=== PATIENT | female | born 1955 | race Caucasian/White ===

== ENCOUNTER 2018-10-11 21:04 | Inpatient (IN) | payer MEDICARE, OTHER ==
[~2018-10-11] VITALS: Ht 157.5 cm; Wt 58.5 kg
[2018-10-11] MEDS ORDERED: DIATRIZOATE MEGL/DIATRIZOA SOD 30 ML BTL PO ONE (21:20)
[2018-10-11 21:37] LABS: BASOPHILS % 0.2 % (0.0-1.0); EOSINOPHILS % 0.6 % (0.0-6.0); HEMATOCRIT 38.1 % (34.2-44.1); HEMOGLOBIN 12.4 g/dL (12.0-16.0); LYMPHOCYTES # (AUTO) 1.4 (1.0-3.2); LYMPHOCYTES % 22.3 % (18.0-39.1); MEAN CORPUSCULAR HEMOGLOBIN 32.5 pg (28-32); MEAN CORPUSCULAR HGB CONC 32.5 g/dL (31-35); MEAN CORPUSCULAR VOLUME 99.7 fL (81-99); MONOCYTES # (AUTO) 0.4 (0.2-0.8); MONOCYTES % 6.5 % (4.4-11.3); NEUTROPHILS # (AUTO) 4.4 (2.1-6.9); NEUTROPHILS % 69.8 % (38.7-80.0); PLATELET COUNT 88 x10e3/uL (140-360); RED BLOOD COUNT 3.82 x10e6/uL (3.6-5.1); RED CELL DISTRIBUTION WIDTH 18.6 % (11.7-14.4)
[2018-10-11 21:57] LABS: ALBUMIN/GLOBULIN RATIO 0.4 (0.8-2.0); ANION GAP 14.6 mmol/L (8-16); CALCIUM 8.7 mg/dL (8.4-10.2); CREATININE, SERUM 2.91 mg/dL (0.57-1.11); POTASSIUM 4.6 mmol/L (3.5-5.1)
[2018-10-11 21:58] LABS: B-TYPE NATRIURETIC PEPTIDE2 124.1 pg/mL (0-100)
[2018-10-11 22:03] LABS: CREATINE KINASE MB 9.2 ng/mL (0-5.0)
--- NOTE | 2018-10-11 22:19 | Diagnostic Imaging Report ---
EXAMINATION: CHEST SINGLE (PORTABLE) COMPARISON: None INDICATION: Shortness of breath, septic ^sob ^[id number] ^2145 ^Y DISCUSSION: Frontal view of the chest obtained at 2141 hours. The entire right hemithorax was not included on the image. HEART AND MEDIASTINUM: The cardiomediastinal silhouette is unremarkable. LINES: None. LUNGS: Right middle lobe and right basilar airspace opacities. Left lung is clear. No interstitial edema PLEURA: No pleural effusion or pneumothorax. BONES AND SOFT TISSUES: There are degenerative changes of the shoulders, right greater than left. The soft tissues are normal. IMPRESSION: Right middle lobe and lower lobe airspace opacities suggestive of pneumonia. Signed by: Dr. Emerson Joyner MD on 10/11/2018 10:15 PM
[2018-10-11 22:31] LABS: BILIRUBIN,URINE NEGATIVE (NEGATIVE); CLARITY,URINE CLEAR (CLEAR); COLOR,URINE YELLOW (YELLOW); KETONES,URINE NEGATIVE (NEGATIVE); LEUKOCYTE ESTERASE ,URINE NEGATIVE (NEGATIVE); NITRITE,URINE NEGATIVE (NEGATIVE); PROTEIN,URINE DIPSTICK NEGATIVE (NEGATIVE); URINE UROBILINOGEN 0.2 mg/dL (0.2 - 1)
--- NOTE | 2018-10-11 22:54 | Diagnostic Imaging Report ---
CT Abdomen and Pelvis without contrast INDICATION: ^rectal prolapse, eval for intra abdominal mass ^[id number] ^3 ^Y TECHNIQUE: Thin collimation axial images obtained from the diaphragm to the level of the pubic symphysis without nonionic intravenous contrast. Dose reduction techniques used: Automated exposure control, adjustment of the mAs and/or kVp according to patient size, standardized low-dose protocol, and/or iterative reconstruction technique. RADIATION DOSE: Total DLP: 413.8 mGy*cm Estimated effective dose: (DLP x 0.015 x size factor) mSv CTDIvol has been reviewed. It is below the limits set by the Radiation Protocol Committee (RPC). COMPARISON: Chest x-ray 2141 hours. ABDOMEN FINDINGS: Lung Bases: Small bilateral pleural effusions, right greater than left and bibasilar atelectasis. Small hiatal hernia with fluid adjacent to the distal esophagus. The heart is normal in size. Liver: Cirrhosis. No mass on these unenhanced images. Gallbladder: Present and contains a small amount of sludge. No ductal dilatation. Pancreas: Normal attenuation without mass. Spleen: Normal size without mass. Adrenal Glands: Mild thickening of the right adrenal gland without mass. Left adrenal gland is poorly visualized. Kidneys: Right: Punctate calculus in the lower pole.. No cortical mass or hydronephrosis Left: No renal calculus. No cortical mass or hydronephrosis Lymph Nodes: No lymphadenopathy. Aorta: Normal in diameter. Multiple abdominal varices PELVIS FINDINGS: Peritoneum/retroperitoneum: Moderate amount of abdominopelvic ascites. Bowel: Stomach: Collapsed with prominent gastric kennedy. Infiltrative mass cannot be excluded. Small Bowel: Normal in caliber with normal wall thickness. Large Bowel: Mild to moderate burden of stool throughout. No dilatation or significant mural thickening. Appendix: Normal. March pelvic floor laxity with inferior displacement of the rectum and peritoneum along with ascitic fluid. Bladder: Normal in position and appears normal. Ureters: No ureteral dilatation. Uterus: Present and atrophic with downward displacement approximately 4.5 cm inferior to the pubococcygeal line. Lymph nodes: No enlarged pelvic or inguinal lymph nodes. No enlarged lymph nodes in the small bowel mesentery Bones: Mild to moderate degenerative changes of the spine. There is wedging of the T12 vertebral body. The spinal canal is patent. No focal osseous lesions. Soft tissues: Mild diffuse subcutaneous edema. IMPRESSION: 1. Marked pelvic floor laxity with uterine and rectal prolapse. No evidence of bowel obstruction. 2. Cirrhosis and suspicion of portal hypertension with moderate abdominopelvic ascites. 3. Diffuse gastric wall thickening. This could either represent an infiltrative gastric mass or the result of numerous varices. Recommend correlation with endoscopy. 4. Bilateral pleural effusions and bibasilar atelectasis. 5. Tiny nonobstructing right intrarenal calculus. Signed by: Dr. Emerson Joyner MD on 10/11/2018 10:51 PM
[2018-10-11 22:56] LABS: BACTERIA,URINE FEW /HPF; EPITHELIAL CELLS,URINE FEW /LPF; RENAL EPITHELIAL CELLS,URINE FEW; TRANSITIONAL EPI CELLS,URINE MODERATE; WBC,URINE (MAN) >50 /HPF (0-5)
[2018-10-12] VITALS (8 sets, daily range): BP systolic 119–140; BP diastolic 66–83
[2018-10-12] MEDS ORDERED: SODIUM CHLORIDE 0.9% 1000ML 1,000 ML IV SCH (00:17)
--- OUTSIDE RECORDS SUMMARY | 2018-10-12 00:27 | XMS REPORT ---
[facility] Address Unknown Phone Unavailable Care Team Providers Care Basket Turner Name Role Phone Qing CHIN Unavailable Unavailable Problems This patient has no known problems. Allergies, Adverse Reactions, Alerts This patient has no known allergies or adverse reactions. Medications This patient has no known medications. Results Test Description Test Time Test Comments Text Results Atomic Results Result Comments CT ABDOMEN/PELVIS WO 2018-10-11 22:42:00 [place] [address] Patient Name: ARLET ALVARENGA MR #: [id number] : 1955 Age/Sex: 63/F Req #: [id number] [facility] Physician: Ordered by: MELISSA CHIN MD Report #: [id number] Location: ER Room/Bed: Procedure: CT/CT ABDOMEN/PELVIS WO Exam Date: 10/11/18 Exam Time: 2152 REPORT STATUS: Signed CT Abdomen and Pelvis without contrast INDICATION: rectal prolapse, eval for intra abdominal mass [id number] Y TECHNIQUE: Thin collimation axial images obtained from the diaphragm to the level of the pubic symphysis without nonionic intravenous contrast. Dose reduction techniques used: Automated exposure control, adjustment of the mAs and/or kVp according to patient size, standardized low-dose protocol, and/or i terative reconstruction technique. RADIATION DOSE: Total DLP: 413.8 mGy*cm Estimated effective dose: (DLP x 0.015 x size factor) mSv CTDIvol has been reviewed. It is below the limits set by the Radiation Protocol Committee (RPC). COMPARISON: Chest x-ray 2141 hours. ABDOMEN FINDINGS: Lung Bases: Small bilateral pleural effusions, right greater than left and bibasilar atelectasis. Small hiatal hernia with fluid adjacent to the distal esophagus. The heart is normal in size. Liver: Cirrhosis. No mass on these unenhanced images. Gallbladder: Present and contains a small amount of sludge. No ductal dilatation. Pancreas: Normal attenuation without mass. Spleen: Normal size without mass. Adrenal Glands: Mild thickening of the right adrenal gland without mass. Left adrenal gland is poorly visualized. Kidneys: Right: Punctate calculus in the lower pole.. No cortical mass or hydronephrosis Left: No renal calculus. No cortical mass or hydronephrosis Lymph Nodes: No lymphadenopathy. Aorta: Normal in diameter. Multiple abdominal varices PELVIS FINDINGS: Peritoneum/retroperitoneum: Moderate amount of abdominopelvic ascites. Bowel: Stomach: Collapsed with prominent gastric kennedy. Infiltrative mass cannot be excluded. Small Bowel: Normal in caliber with normal wall thickness. Large Bowel: Mild to moderate burden of stool throughout. No dilatation or significant mural thickening. Appendix: Normal. March pelvic floor laxity with inferior displacement of the rectum and peritoneum along with ascitic fluid. Bladder: Normal in position and appears normal. Ureters: No ureteral dilatation. Uterus: Present and atrophic with downward displacement approximately 4.5 cm inferior to the pubococcygeal line. Lymph nodes: No enlarged pelvic or inguinal lymph nodes. No enlarged lymph nodes in the small bowel mesentery Bones: Mild to moderate degenerative changes of the spine. There is wedging of the T12 vertebral body. The spinal canal is patent. No focal osseous lesions. Soft tissues: Mild diffuse subcutaneous edema. IMPRESSION: 1. Marked pelvic floor laxity with uterine and rectal prolapse. No evidence of bowel obstruction. 2. Cirrhosis and suspicion of portal hypertension with moderate abdominopelvic ascites. 3. Diffuse gastric wall thickening. This could either represent an infiltrative gastric mass or the result of numerous varices. Recommend correlation with endoscopy. 4. Bilateral pleural ef fusions and bibasilar atelectasis. 5. Tiny nonobstructing right intrarenal calculus. Signed by: Dr. Apoorva Joyner MD on 10/11/2018 10:51 PM Dictated By: APOORVA JOYNER MD 50 Transcribed By: BALJINDER on 10/11/182250 COPY TO: MLEISSA CHIN MD CHEST SINGLE (PORTABLE) 2018-10-11 22:14:00 [place] [address] Patient Name: ARLET ALVARENGA MR #: [id number] : 1955 Age/Sex: 63/F Req #: [id number] Adm Physician: Ordered by: MELISSA CHIN MD Report #: [id number] Location: ER Room/Bed: Procedure: [id number] DX/CHEST SINGLE (PORTABLE) Exam Date: 10/11/18 Exam Time: 2144 REPORT STATUS: Signed EXAMINATION: CHEST SINGLE (PORTABLE) COMPARISON: None INDICATION: Shortness of breath, septic sob [id number] Y DISCUSSION: Frontal view of the chest obtained at 2141 hours. The entire right hemithorax was not included on the image. HEART AND MEDIASTINUM: The cardiomediastinal silhouette is unremarkable. LINES: None. LUNGS: Right middle lobe and right basilar airspace opacities. Left lung is clear. No interstitial edema PLEURA: No pleural effusion or pneumothorax. BONES AND SOFT TISSUES: There are degenerative changes of the shoulders, right greater than left. The soft tissues are normal. IMPRESSION: Right middle lobe and lower lobe airspace opacities suggestive of pneumonia. Signed by: Dr. Apoorva Joyner MD on 10/11/2018 10:15 PM Dictated By: APOORVA JOYNER MD 14 Transcribed By: BALJINDER on 10/11/182214 COPY TO: MELISSA CHIN MD
--- OUTSIDE RECORDS SUMMARY | 2018-10-12 00:27 | XMS REPORT | Continuity of Care Document ---
Author Author [email or web address] [facility] [email or web address] Address Unknown Phone Unavailable Care Team Providers Care Field Investigator Name Role Phone [employer] Unavailable Unavailable Problems Problem Status Onset Date Classification Date Reported Comments Source Derangement of meniscus, not elsewhere classified Active Problem 02/15/2014 Jose R Ruiz Osteoarthrosis, lower leg Active Problem 02/15/2014 Jose R Ruiz Rheumatoid arthritis Active Problem 02/15/2014 Jose R Ruiz Hepatitis C carrier Active Problem 02/15/2014 Jose R Ruiz Unspecified drug dependence Active Diagnosis 08/18/2013 Jose R Ruiz Medications Medication Details Route Status Patient Instructions Ordering Provider Order Date Source Hydrocodone-Acetaminophen 1 tablet as needed Orally Active 7.5- 325 MG Orally every 6 hrs Latoya Ruiz Plaquenil 1 tablet with food or milk Orally Active 200 MG Orally BID Latoya Ruiz Synvisc One Use as directed Generic: Hylan NA Active 8 MG/ML Latoya Ruiz Carisoprodol 1 tablet as needed Orally Active 350 MG Orally Four times a day Latoya Ruiz Allergies, Adverse Reactions, Alerts Substance Category Reaction Severity Reaction type Status Date Reported Comments Source N.K.D.A. Adverse Reaction Info Not Available Adverse Reaction Active 06/15/2013 Jose R Ruiz Immunizations No Data Provided for This Section Results No Data Provided for This Section Pathology Reports No Data Provided for This Section Diagnostic Reports No Data Provided for This Section Consultation Notes No Data Provided for This Section Discharge Summaries No Data Provided for This Section History and Physicals No Data Provided for This Section Vital Signs Vital Sign Value Date Comments Source Weight 113 06/15/2013 Jose R Ruiz Height 63 06/15/2013 Jose R Ruiz Temperature Oral (F) 98.2 F 06/15/2013 Jose R Ruiz Heart Rate 76 06/15/2013 Jose R Ruiz Diastolic (mm Hg) 94 06/15/2013 Jose R Ruiz Systolic (mm Hg) 158 06/15/2013 Jose R Ruiz Encounters Location Location Details Encounter Type Encounter Number Reason For Visit Attending Provider ADM Date DC Date Status Source Rogelio Ruiz MD f/u [id number] 06/15/2013 06/15/2013 Jose R Ruiz MD f/u [id number] 06/15/2013 06/15/2013 Jose R Ruiz MD Follow up [id number] 02/09/2014 02/09/2014 Jose R Ruiz Procedures No Data Provided for This Section Assessment and Plan No Data Provided for This Section Plan of Care No Data Provided for This Section Social History Social History Date Source Social History ElementQualifiersDate Reported Tobacco Use: . Are you a:: current smoker , How often do you smoke cigarettes?: every day, How many cigarettes a day do you smoke?: 6-10 June 15, 2013 Caffeine: yes. frequency:, 1-2, cups/day June 15, 2013 Exercise: yes. walking June 15, 2013 Alcohol: no. 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
--- OUTSIDE RECORDS SUMMARY | 2018-10-12 00:27 | XMS REPORT ---
Author Chris Heck [facility] [employer] Address Unknown Phone Unavailable Care Team Providers Care Electric Motor Analyst Name Role Phone Chris Klein Unavailable Allergies, Adverse Reactions, Alerts Substance Reaction Event Type N.K.D.A. Info Not Available Non Drug Allergy Encounters Encounter Location Date f/u Rogelio Ruiz MD June 15, 2013 Problems Problem Type Condition ICD-9 Code Onset Dates Condition Status Problem Derangement of meniscus, not elsewhere classified 717.5 Active Problem Osteoarthrosis, lower leg 715.16 Active Problem Rheumatoid arthritis 714.0 Active Assessment Osteoarthrosis, lower leg 715.16 Active Assessment Unspecified drug dependence 304.90 Active Problem Hepatitis C carrier V02.62 Active Assessment Rheumatoid arthritis 714.0 Active Medications Medication Code System Code Instructions Start Date End Date Status Dosage Hydrocodone-Acetaminophen MEDISPAN [address]-01 7.5-325 MG Orally every 6 hrs Active 1 tablet as needed Plaquenil MEDISPAN [address]-88 200 MG Orally BID Active 1 tablet with food or milk Synvisc One MEDISPAN [address]-93 8 MG/ML Active Use as directed Generic: Hylan Carisoprodol MEDISPAN [address]-53 350 MG Orally Four times a day Active 1 tablet as needed Social History Social History Element Qualifiers Date Reported Tobacco Use: . Are you a:: current smoker , How often do you smoke cigarettes?: every day, How many cigarettes a day do you smoke?: 6-June 15, 2013 Caffeine: yes. frequency:, 1-2, cups/day June 15, 2013 Exercise: yes. walking June 15, 2013 Alcohol: no. 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, 2013 Vital Signs Date/Time: June 15, 2013 Weight 113 lbs Height 63 in Temperature 98.2 F Cardiac Monitoring Heart Rate 76 /min Blood Pressure Diastolic 94 mm Hg Blood Pressure Systolic 158 mm Hg Results CBC (INCLUDES DIFF/PLT) ABSOLUTE NEUTROPHILS(-2838-0500 cells/uL) 2750 PLATELET COUNT(-140-400 Thousand/uL) 87 EOSINOPHILS(- %) 3.4 RED BLOOD CELL COUNT(-3.80-5.10 Million/uL) 4.30 MONOCYTES(- %) 9.7 HEMOGLOBIN(-11.7-15.5 g/dL) 13.1 LYMPHOCYTES(- %) 31.5 HEMATOCRIT(-35.0-45.0 %) 40.0 NEUTROPHILS(- %) 55.0 MCV(-80.0-100.0 fL) 92.9 ABSOLUTE BASOPHILS(-0-200 cells/uL) 20 MCH(-27.0-33.0 pg) 30.6 BASOPHILS(- %) 0.4 ABSOLUTE EOSINOPHILS(-15-500 cells/uL) 170 MCHC(-32.0-36.0 g/dL) 32.9 PLATELET ESTIMATION(-ADEQUATE ) DECREASED RDW(-11.0-15.0 %) 13.2 ABSOLUTE MONOCYTES(-200-950 cells/uL) 485 WHITE BLOOD CELL COUNT(-3.8-10.8 Thousand/uL) 5.0 ABSOLUTE LYMPHOCYTES(-850-3900 cells/uL) 1575 SED RATE BY MODIFIED WESTERGREN SED RATE BY MODIFIED WESTERGREN(-< OR=30 mm/h) 7 COMPREHENSIVE METABOLIC PANEL W/EGFR ALBUMIN/GLOBULIN RATIO(-1.0-2.5 (calc)) 0.9 GLOBULIN(-1.9-3.7 g/dL (calc)) 4.2 ALKALINE PHOSPHATASE(-33-130 U/L) 157 BILIRUBIN, TOTAL(-0.2-1.2 mg/dL) 0.4 CHLORIDE(-98-110 mmol/L) 106 ALT(-6-29 U/L) 24 POTASSIUM(-3.5-5.3 mmol/L) 4.5 AST(-10-35 U/L) 38 SODIUM(-135-146 mmol/L) 138 BUN/CREATININE RATIO(-6-22 (calc)) NOT APPLICABLE eGFR (-> OR=60 mL/min/1.73m2) 112 CALCIUM(-8.6-10.4 mg/dL) 8.8 CARBON DIOXIDE(-19-30 mmol/L) 24 ALBUMIN(-3.6-5.1 g/dL) 3.8 PROTEIN, TOTAL(-6.1-8.1 g/dL) 8.0 GLUCOSE(-65-99 mg/dL) 103 UREA NITROGEN (BUN)(-7-25 mg/dL) 11 CREATININE(-0.50-0.99 mg/dL) 0.64 eGFR NON-AFR. LIBYAN(-> OR=60 mL/min/1.73m2) 97 C-REACTIVE PROTEIN C-REACTIVE PROTEIN(-<0.80 mg/dL) 1.08 Summary Purpose [employer] Submission
--- OUTSIDE RECORDS SUMMARY | 2018-10-12 00:27 | XMS REPORT ---
Author Rogelio Ibarra [facility] [employer] Address Unknown Phone Unavailable Care Team Providers Care Kier Tender Name Role Phone Rogelio Ruiz Unavailable Encounters Encounter Location Date f/u Rogelio Ruiz MD June 15, 2013 Follow up Rogelio Ruiz MD Feb 09, 2014 Problems Problem Type Condition ICD-9 Code Onset Dates Condition Status Problem Derangement of meniscus, not elsewhere classified 717.5 Active Problem Osteoarthrosis, lower leg 715.16 Active Problem Rheumatoid arthritis 714.0 Active Problem Hepatitis C carrier V02.62 Active Social History Social History Element Qualifiers Date Reported Tobacco Use: . Are you a:: current smoker , How often do you smoke cigarettes?: every day, How many cigarettes a day do you smoke?: 6-10 June 15, 2013 Caffeine: yes. frequency:, 1-2, cups/day June 15, 2013 Exercise: yes. walking June 15, 2013 Alcohol: no. 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
[2018-10-12] MEDS ORDERED: CEFTRIAXONE SOD 1 GRAM/0.9% SOD CHL 50ML BAG IV SCH (00:30)
[2018-10-12] MEDS ORDERED: AZITHROMYCIN 500MG/SOD CHL 0.9% 250ML BAG IV SCH (00:30)
--- NOTE | 2018-10-12 01:13 | NUR ---
NO PAPERWORK SENT WITH PATIENT FROM [facility]. [facility] CALLED TO OBTAIN MED LIST. NURSE TO FAX LIST OF MEDS.
[2018-10-12] MEDS ORDERED: XIFAXAN550 MG PO (01:44)
[2018-10-12] MEDS ORDERED: SPIRONOLACTONE25 MG PO (01:44)
[2018-10-12] MEDS ORDERED: LOSARTAN POTASS50 MG PO (01:44)
[2018-10-12] MEDS ORDERED: KLOR-CON M2020 MEQ PO (01:44)
[2018-10-12] MEDS ORDERED: FOLIC ACID1 MG PO (01:50)
[2018-10-12] MEDS ORDERED: PROTONIX40 MG PO (01:54)
[2018-10-12] MEDS ORDERED: OXYCODONE-ACET1 EAC1 PO (01:54)
[2018-10-12] MEDS ORDERED: NORCO 5-325 TA1 EACH PO (01:54)
[2018-10-12] MEDS ORDERED: MULTIVITAMINS1 EAC7 PO (01:54)
[2018-10-12] MEDS ORDERED: THIAMINE PO (01:54)
[2018-10-12] MEDS ORDERED: LACTULOSE20 GM/30 M PO (01:54)
[2018-10-12] MEDS ORDERED: ZOLOFT50 MG PO (01:54)
[2018-10-12] MEDS ORDERED: PHOS-NAK PACKE1 EACH PO (01:54)
[2018-10-12 06:35] LABS: CREATINE KINASE MB 4.7 ng/mL (0-5.0)
[2018-10-12] MEDS ORDERED: ALBUMIN 5% 0.05 GM/ML BTL IV STA (10:26)
[2018-10-12] MEDS ORDERED: ALBUMIN 5% 250ML 250 ML IV ONE ×2 (10:45→12:10)
[2018-10-12] MEDS ORDERED: ALBUMIN 5% 0.05 GM/ML BTL IV ONE (10:45)
--- NOTE | 2018-10-12 11:16 | NUR ---
Inserted almazan catheter 16 fr in, urine outflow of 90 ml noted, urine sample collected for lab. Patient tolerated well, secured catheter
[2018-10-12 12:00] LABS: BILIRUBIN,URINE NEGATIVE (NEGATIVE); CLARITY,URINE SL CLOUDY (CLEAR); COLOR,URINE YELLOW (YELLOW); KETONES,URINE NEGATIVE (NEGATIVE); LEUKOCYTE ESTERASE ,URINE NEGATIVE (NEGATIVE); NITRITE,URINE NEGATIVE (NEGATIVE); PROTEIN,URINE DIPSTICK NEGATIVE (NEGATIVE); URINE UROBILINOGEN 0.2 mg/dL (0.2 - 1)
[2018-10-12] MEDS: SODIUM BICARBONATE 8.4% 150 ML in DEXTROSE 5% 1,000 ML IV SCH (12:02)
--- NOTE | 2018-10-12 12:38 | NUR ---
Blood culture preliminary result notified Dr Mar, no new orders
--- NOTE | 2018-10-12 12:41 | NUR ---
History / Physical Dictated [id number]
[2018-10-12 12:56] LABS: BACTERIA,URINE FEW /HPF; EPITHELIAL CELLS,URINE FEW /LPF
[2018-10-12 13:04] LABS: SODIUM,URINE < 20 mmol/L
[2018-10-12 13:30] LABS: INR 1.72; PARTIAL THROMBOPLASTIN TIME 34.5 seconds (23.8-35.5); PROTHROMBIN TIME 20.8 seconds (11.9-14.5)
--- NOTE | 2018-10-12 13:34 | NUR ---
Pt sleeping soundly and no family present. [employer] left a card describing availability of craft coordinator and instructions on how to contact a craft coordinator. MARLON VINCENT [employer] Spiritual Care Department O: [phone] Pager: [phone] ([phone] number calling from)
[2018-10-12 13:43] LABS: CREATINE KINASE MB 3.4 ng/mL (0-5.0)
--- NOTE | 2018-10-12 14:24 | Consultation ---
DATE OF CONSULTATION: 10/12/2018 HISTORY OF PRESENT ILLNESS: The patient is a 63-year-old female with multiple medical problems, hypertension, depression, cirrhosis of the liver. Osteoarthritis, who sent from the long term with rectal prolapse. Apparently, however, the patient says the rectum was in prolapsing form several months now. She denies any pain at this time and appears that she has been medicated. She has not had nausea, vomiting. CT of the abdomen and pelvis revealed findings secondary to her cirrhosis with ascites and evidence of portal hypertension. The patient has not had nausea, vomiting, or fever. PAST MEDICAL HISTORY: As stated above. PAST SURGICAL HISTORY: She says she has had previous surgery, but cannot detail what it was. MEDICATIONS: At the long term were; pain medication, lactulose, losartan, multivitamins, folic acid, oxycodone, Protonix, potassium, Xifaxan, Zoloft, spironolactone, and thiamine. ALLERGIES: SHE HAS NO KNOWN ALLERGIES. FAMILY HISTORY: Noncontributory. SOCIAL HISTORY: The patient does not smoke cigarettes. Does not drink alcohol. REVIEW OF SYSTEMS: Limited as the patient is a poor historian, but otherwise is as stated above. She denies abdominal pain. PHYSICAL EXAMINATION: GENERAL: The patient is awake and alert. VITAL SIGNS: At this time are essentially normal. Heart rate 98. HEENT: There was no scleral icterus. NECK: No masses. LUNGS: Equal breath sounds are clear bilaterally. CARDIAC: Regular rate and rhythm. ABDOMEN: Distended, but soft with no tenderness. No mass. RECTAL: There is prolapse of the rectum. Rectum otherwise appears viable and the prolapse extends out about 8 cm. EXTREMITIES: Have no edema. NEUROLOGIC: Grossly intact. LABORATORY TESTS: White blood count 6.3, hemoglobin 12, and hematocrit 38. Chemistries; elevated BUN 79, creatinine 2.9, the bicarbonate level is 15. Bilirubin is 2.3. AST, ALT, alkaline phosphatase are all elevated. Coag studies are not done. Platelet count is 88,000. ASSESSMENT: A 63-year-old female with severe liver disease has rectal prolapse, that has been reduced, but recurs. PLAN: Plan to check her coagulations status and it is possible she may tolerate a local procedure for the prolapse something as simple as placing a perianal suture. Thank you for asking me yo see Ms. Coleman. Stew W MD RICARDO Moran/MARCOS /[id number]
[2018-10-12] MEDS: CEFEPIME 1GM/NS 0.9% 50 ML 50 ML IV SCH (14:32)
[2018-10-12] MEDS: LEVOFLOXACIN 250MG/D5W 50ML 50 ML IV SCH (15:50)
--- NOTE | 2018-10-12 16:30 | Consultation ---
DATE OF CONSULTATION: 10/12/2018 HISTORY OF PRESENT ILLNESS: A 63-year-old female. Renal consulted for management of acute kidney injury, extremely poor historian. She was asleep when I got in the room, arousable, very dry mouth. She tries to tell me why she is here and what is wrong with her, all she is saying that she has lots of problems, but she does not really finish her sentences as such and as far as review of system is concerned, she denied any shortness of breath. When asked for pain, she said yes, but she could not tell me where. She denies any nausea, vomiting. She has existing history of cirrhosis, portal hypertension, ascites. She is a long-term patient. Her workup here included CT scan of abdomen and pelvis without contrast shows evidence of rectal prolapse, cirrhosis of liver, gallbladder with small amount of sludge. Right kidney shows punctate calculus lower pole. Left kidney, no calculus. Diffuse gastric wall thickness. Bilateral pleural effusion. She had a chest x-ray. Please see official report, shows right middle lobe and lower lobe airspace opacities suggestive of pneumonia. ALLERGIES: NO KNOWN ALLERGIES. LABORATORY DATA: Current labs, sodium 140, potassium 4.6, chloride 115, bicarbonate 15, BUN 79, and creatinine 2.9. WBC 6.33, hemoglobin 12.4. CURRENT MEDICATIONS: 1. Normal saline. 2. Ceftriaxone. 3. Azithromycin. PHYSICAL EXAMINATION: GENERAL: Awake, alert, unclear whether she is oriented to time and place. She is not participating. Does not appear to be in any respiratory distress. VITAL SIGNS: Blood pressure is 119/66, pulse rate 113, afebrile, respiratory rate 18, and oxygen saturation 97% on room air. HEAD AND NECK: No icterus noted. Oral mucosa dry. Obvious very dry mucosa. Dry skin. Neck veins not distended. LUNGS: Relatively clear. Occasional rales, perhaps right lower zone as well as left lower zone. HEART: S1, S2 audible. ABDOMEN: Soft. Flanks full. No apparent visceromegaly. EXTREMITIES: Lower extremity examination shows no edema. IMPRESSION AND PLAN: Acute kidney injury in a lady with cirrhosis, ascites, portal hypertension, pneumonia with relatively normal white count, no evidence of anemia, evidence of mild mixed anion gap metabolic acidosis with a bicarb of 15 and anion gap of 14.6. Lactic acid elevated at 42.6 now. The lab parameters here are different from other hospitals. Her ammonia level is 88, CK is 151, total protein 7, globulins are elevated at 5. The etiology of acute kidney injury must rule out hepatorenal syndrome, must rule out dehydration, prerenal state, acute kidney injury, ATN, has rectal prolapse as well as elevated globulin gap, but I will obtain hepatitis panel, hepatitis C virus antibody, HIV, serum immunofixation. Urinalysis with micro, also obtain urine culture, urine sodium, urine creatinine. Calculate fractional excretion of sodium, immunofixation of urine. Discontinue existing IV fluids. Start IV bicarbonate. Prior to that, we will give 5% albumin bolus. Please see orders. MD DURAN Reyes/MODL /[id number]
[2018-10-12] MEDS: LACTULOSE SYRUP 20 GM/30 ML UDC PO SCH (16:57)
[2018-10-12] MEDS: RIFAXIMIN 550 MG TABLET PO SCH (17:10)
--- NOTE | 2018-10-12 17:40 | NUR ---
Nutrition Intervention Note RD Recommendation(s) for Physician: The patient meets criteria for MODERATE protein-calorie malnutrition. -Rec low sodium diet as medically appropriate -Rec Ensure Enlive TID to increase protein-calorie intake (Glucerna if glucose level remain elevated) -Rec appetite stimulant to increase PO intake -Rec MVi w/minerals for cirrhosis Plan of Care: RD following, monitoring for tolerance and adequacy, ONS rec Nutrition reason for involvement: Nutrition risk trigger MST RD Assessment 10/12 63yo F, who was admitted for cirrhosis and CA. Visited pt in the room. Pt was a poor historian and unable to finish most of her sentences. Per friend on bedside, pt has been eating poorly at [facility] for unknown amount of time. Her UBW has been around 120lbs. No history of diabetes was reported. Pt denied any chewing or swallowing difficulty. Pt was getting Ensure at the facility. Will continue to monitor and follow. Principal Problems/Diagnoses: Acute kidney injury in a lady with cirrhosis, ascites, portal hypertension, pneumonia, rectal prolapse PMH: cirrhosis, portal hypertension, ascites GI: abdomen soft Skin: no pressure wound noted Labs: (10/12) BUN 79 H, Creatinine 2.91 H, Glucose 260 H, AST 94 H Meds: cefepime, sodium bicarb Ht: 62in Wt: 129lb BMI: 23.6kg/m2 IBW: 110lb +/- 10% Malnutrition Evaluation (10/12/2018) The patient meets criteria for MODERATE protein-calorie malnutrition. Energy intake: <50% of estimated energy requirements for >5 days Weight loss: Unknown Fat loss: Moderate hollow around orbital region Muscle loss: Moderate clavicle protrusion Supporting Evidence: Fluid accumulation: Ascites Functional Status: reduced Nutrition Prescription (Diet Order): cardiac diet Estimated Nutritional Needs: Calories: 1375 1650kcal(25-30kcal/kg/d) Weight used: UBW Protein: 55 83g(1-1.5g/kg/d) Weight used: UBW Diet Adequacy: Not meeting calorie needs, Not meeting protein needs Diet Education Needs Assessment: Diet education indicated, but patient not appropriate for education at this time. Nutrition Care Level: mod Nutrition Diagnosis: Moderate malnutrition related to inadequate oral intake as evidenced by <50% of estimated energy requirements for >5 days and moderate fat/muscle loss. Goal: Patient will meet 75-100% of estimated needs by follow up Progress: Not Progressing Interventions: Modified diet, Commercial beverage, Multivitamin/mineral supplement therapy Monitoring/Evaluation: Total energy intake, Total protein intake, Modified diet, Liquid supplement, Weight change Signed: Vero Gordillo MS, RD, LD
--- NOTE | 2018-10-12 18:20 | History and Physical ---
CHIEF COMPLAINT: Malaise. HISTORY OF PRESENT ILLNESS: The patient was reporting rectal pain. There was a prolapse that was known to be there previously. There was some pain associated with it and she has been having evaluation by outside doctors for surgery. The patient, however, was noted to have increasing tachypnea. She is having increasing problems with breathing. She was sent to the emergency room for evaluation. Lungs show small bilateral pleural effusions with small hiatal hernia and fluid adjacent to distal esophagus, liver cirrhosis, gallbladder sludge, moderate amount of abdominal pelvic ascites, multiple abdominal varices, thickened stomach wall, marked pelvic floor laxity with uterine and rectal prolapse. At this point, the patient had other diagnostic studies performed, which include urinalysis with greater than 50 white cells. The patient with chemistry with creatinine 2.91 elevated above her baseline. BNP was 124. Albumin 2.0. White count was 6. Platelets 88, hematocrit 38. The patient was admitted with feeling and diagnosis of sepsis presumed. PAST MEDICAL HISTORY: Hypertension, depression, GERD, chronic back pain, osteoarthritis, cirrhosis, rheumatoid arthritis. MEDICATIONS: Medication list was reviewed per the chart record. Include Tylenol with codeine, Xifaxan, Protonix, Zoloft, losartan, folic acid, spironolactone, potassium along medicines. ALLERGIES: NO KNOWN DRUG ALLERGIES. SOCIAL HISTORY: Never smoked. No alcohol, no drugs per record that we have. FAMILY HISTORY: Noncontributory. REVIEW OF SYSTEMS: Cannot get as she is altered. OBJECTIVE: VITAL SIGNS: The patient with tachypnea noticeable, respiratory rate high 20s. Heart rate decreased from 124 to 98. 95% pulse oximeter, 2 L/minutes by nasal cannula. No fevers. GENERAL: In bed, moan, talk short phrases, but confused. HEENT: Normocephalic atraumatic. NECK: Supple. Throat midline. LUNGS: Bilateral air entry, decreased breath sounds, few crackles. CARDIOVASCULAR: S1, S2. No murmurs, rubs, or gallops. ABDOMEN: Soft, nontender. EXTREMITIES: No clubbing, no cyanosis. There is trace edema in the legs. INTEGUMENT: No rash, no purpura. LABORATORY DATA: 4.6 potassium, 79 BUN, 2.9 creatinine. 6.3 white count, hematocrit 38, platelets 88. IMPRESSION: 1. Urinary tract infection. 2. Severe sepsis. 3. Acute on chronic kidney failure. 4. Metabolic acidosis. 5. Thrombocytopenia. 6. Cirrhosis. 7. History of rheumatoid arthritis. 8. Encephalopathy, hepatic plus or minus toxic metabolic. 9. Gastroesophageal reflux disease. 10. Chronic pain. 11. Hypertension. 12. History of depression. 13. Rectal prolapse. Get renal consult. GI consult. Antibiotics. Follow up the cultures. We will follow up closely. The patient is in very guarded condition. Resume medicines including medicines for hepatic encephalopathy. Thank you very much, Dr. Amador for allowing me a chance to participate in care of Ms. Coleman. Please call for questions. MD HOLLY West/MODQing /[id number]
[2018-10-12] MEDS ORDERED: PHYTONADIONE 10 MG/ML AMP SQ ONE (18:30)
--- NOTE | 2018-10-12 19:01 | Consultation ---
DATE OF CONSULTATION: REASON FOR CONSULTATION: Sepsis. HISTORY OF PRESENT ILLNESS: This patient, who was admitted on October 12. I was asked to see her on October 12. The patient is not a good source of information. She is coming from a care home with altered mental status. Apparently, the patient have complicated medical history including hypertension, depression, liver cirrhosis, osteoarthritis, sent from a care home because she has a rectal prolapse. The patient has been having several months of prolapse, that is getting slowly worse and the patient has no pain. She is currently lying in bed, sleeping, easily arousable, answers simple questions. There is no family. The patient had a CAT scan in the emergency room, showed cirrhosis, ascites, portal hypertension. The patient was admitted, there was concern if she have sepsis because of tachycardia. She was seen by Surgery and Dr. Moran, who recommend that maybe we can do an attempt to . It was also noted that she has gram-negative rods in the blood, so I was asked to see her. The patient as mentioned above, does not really provide any meaningful information. She is currently lying in bed comfortably. LABORATORY DATA: White count 6.3, hemoglobin of 12.4, hematocrit 38. Her sodium 140, potassium 4.6, creatinine 2.9, glucose of 260. Lactic acid 42. MEDICATION LIST: She is on; sodium bicarbonate, azithromycin, rifaximin, lactulose, and cefepime. IMAGING: She had a CT of abdomen and pelvis. She had seen chest x-ray; the chest x-ray showed right middle lobe and lower lobe airspace, suggestive of pneumonia. PHYSICAL EXAMINATION: GENERAL: She is lethargic, sleeping, but comfortable. VITAL SIGNS: Stable. There is no fever. HEENT: Normocephalic. CHEST: Few crackles bilateral. HEART: S1, S2. No S3, S4, or murmur. ABDOMEN: Soft. Bowel sounds present. No tenderness. No hepatosplenomegaly. EXTREMITIES: No edema. SKIN: No rash. IMPRESSION: 1. Sepsis, present on admission, gram-negative rods and source could be GI, especially in the patient who have rectal prolapse. 2. Pneumonia, probably aspiration coming down from the care home, healthcare associated. 3. Chronic kidney disease, acute kidney injury. 4. History of liver cirrhosis. 5. Chronic kidney disease, multifactorial. 6. The plan is to continue cefepime and Levaquin. Await culture sensitivity. Adjust her kidney function. Surgery soon after clearing her sepsis. 7. [facility] resident. 8. Liver cirrhosis, depression, hypertension, per others. Discussed with the family and discussed with the medical team. MD SRI Gamboa/MARCOS /[id number]
--- NOTE | 2018-10-12 19:51 | NUR ---
RECEIVED PT LAYING SEMI FOWLERS IN BED, RESTING 16 RR/MIN. NO S/SX OF DISTRESS NOTED, RR EVEN AND NON-LABORED. LEFT PT LAYING SEMI FOWLERS IN BED, BED IN LOW LOCKED POSITION, SIDE RAILS UPX2, CALL LIGHT AND PHONE WITHIN REACH. BED ALARM ACTIVATED ZONE 1.
--- NOTE | 2018-10-12 19:55 | Diagnostic Imaging Report ---
EXAMINATION: Renal ultrasound. CLINICAL HISTORY :Acute kidney insufficiency COMPARISON: 10/11/2018 TECHNIQUE: Grayscale and color Doppler evaluation of the kidneys and bladder was performed in transverse and longitudinal planes. DISCUSSION: RIGHT KIDNEY: The right kidney measures 11.7 cm in length and shows normal echogenicity. No hydronephrosis, shadowing calculi or solid mass lesions. LEFT KIDNEY: The left kidney measures 9.7 cm in length and shows normal echogenicity. No hydronephrosis, shadowing calculi or solid mass lesions. BLADDER: Bailey within the bladder. Ascites. IMPRESSION: Normal renal echogenicity. No obstruction. Ascites. Signed by: Dr. John Troy M.D. on 10/12/2018 7:52 PM
[2018-10-13] VITALS (8 sets, daily range): BP systolic 126–147; BP diastolic 68–90
--- NOTE | 2018-10-13 01:28 | Consultation ---
DATE OF CONSULTATION: 10/12/2018 HISTORY OF PRESENT ILLNESS: This is a 63 years old, who was admitted to the hospital because of possible sepsis. She also apparently has some rectal pain as well as prolapse. She really denies any abdominal pain along with some nausea or vomiting and her workup so far revealed that liver enzymes mildly elevated, bilirubin 2.3, AST of 94, and ALT of 50 with alkaline phosphatase was 190 and her CBC showed normal white blood cells [place] [address]. She did have a CAT scan of the abdomen and pelvis, which showed evidence of cirrhosis with ascites, thickening in the wall of the stomach, and otherwise is unremarkable and she also has a few sludge in the gallbladder and she apparently also has some rectal prolapse. PAST MEDICAL HISTORY: Significant for history of cirrhosis apparently, also history of hypertension, history of reflux, osteoarthritis. ALLERGIES: NONE. SOCIAL HISTORY: [facility] a jail. MEDICATIONS ON ADMISSION: From the jail including lactulose, losartan, folic acid, oxycodone, Protonix, potassium, Xifaxan, Zoloft, aldactone, as well as thiamine. REVIEW OF SYSTEMS: Really unobtainable. The patient is a very poor historian at this point. PHYSICAL EXAMINATION: GENERAL: The patient is awake, lying in bed, appears to be stable, not in acute distress. VITAL SIGNS: Afebrile currently with stable vital signs. HEAD, EYES, EARS, NOSE, AND THROAT: Normocephalic and atraumatic. Sclerae are anicteric. NECK: Supple. HEART: Regular. LUNGS: Clear. ABDOMEN: Soft. There is some ascites that is nontender. EXTREMITIES: No cyanosis. No clubbing. LABORATORY VALUES: WBC is 6.33, hemoglobin 12.4, [place] [address]. BUN of 7, creatinine of 2.9, bilirubin 2.3, AST of 94, ALT of 50 with alkaline phosphatase of 190 and CAT scan of the abdomen and pelvis showed no cirrhosis and also thickening of the gastric wall. IMPRESSION: 1. Cirrhosis. Some ascites. The patient . 2. Rectal prolapse. Pain has been reduced and surgery is on the case. We planned some procedures, possibly perianal suture. 3. Renal insufficiency. RECOMMENDATION: Continue current care at this point. Follow labs. I believe she will be okay to proceed with procedures as planned by Dr. Moran and I will give also some vitamin K and follow clinically. MD CRUZITO Greenwood/MODL /[id number] cc: MD Philip Petersen MD
[2018-10-13] MEDS: SODIUM BICARBONATE 8.4% 150 ML in DEXTROSE 5% 1,000 ML IV SCH (01:46)
[2018-10-13 06:06] LABS: EOSINOPHILS % 0.3 % (0.0-6.0); HEMATOCRIT 29.7 % (34.2-44.1); HEMOGLOBIN 9.9 g/dL (12.0-16.0); LYMPHOCYTES # (AUTO) 1.1 (1.0-3.2); LYMPHOCYTES % 16.5 % (18.0-39.1); MEAN CORPUSCULAR HEMOGLOBIN 32.4 pg (28-32); MEAN CORPUSCULAR HGB CONC 33.3 g/dL (31-35); MEAN CORPUSCULAR VOLUME 97.1 fL (81-99); MONOCYTES # (AUTO) 0.6 (0.2-0.8); MONOCYTES % 9.7 % (4.4-11.3); NEUTROPHILS # (AUTO) 4.7 (2.1-6.9); RED BLOOD COUNT 3.06 x10e6/uL (3.6-5.1); RED CELL DISTRIBUTION WIDTH 18.6 % (11.7-14.4)
[2018-10-13 06:08] LABS: PLATELET COUNT 48 x10e3/uL (140-360)
--- NOTE | 2018-10-13 06:10 | NUR ---
CRITICAL PLT COUNT CALLED TO MD SANCHEZ. NO NEW ORDERS RECEIVED.
[2018-10-13 06:24] LABS: INR 1.84; PROTHROMBIN TIME 21.9 seconds (11.9-14.5)
[2018-10-13 06:33] LABS: ALBUMIN/GLOBULIN RATIO 0.5 (0.8-2.0); ANION GAP 15.2 mmol/L (8-16); CALCIUM 8.4 mg/dL (8.4-10.2); CREATININE, SERUM 2.41 mg/dL (0.57-1.11); POTASSIUM 3.2 mmol/L (3.5-5.1)
[2018-10-13] MEDS: LACTULOSE SYRUP 20 GM/30 ML UDC PO SCH ×2 (08:09→16:16)
[2018-10-13] MEDS: RIFAXIMIN 550 MG TABLET PO SCH ×2 (08:09→16:16)
[2018-10-13] MEDS: SERTRALINE HCL 50 MG TAB PO SCH (08:09)
[2018-10-13] MEDS: PANTOPRAZOLE SODIUM 40 MG SUSPDR.PKT PO SCH (08:09)
[2018-10-13] MEDS: FOLIC ACID 1 MG TAB PO SCH (08:09)
[2018-10-13 08:12] LABS: PLATELET ESTIMATE MODERATELY DECREASED; PLATELET MORPHOLOGY COMMENT NORMAL
[2018-10-13] MEDS ORDERED: MULTIVITAMINS/MINERALS TAB PO SCH (09:00)
--- NOTE | 2018-10-13 09:01 | NUR ---
patient resting in bed, wet to dry covering on the rectal prolapsed area, not in any distress, on IV fluids
[2018-10-13] MEDS: CEFEPIME 1GM/NS 0.9% 50 ML 50 ML IV SCH (12:36)
--- NOTE | 2018-10-13 13:19 | NUR ---
MEDICINE Coverage for Dr Cheema Date: 10/13/18 SUBJECTIVE: 2 L/min oxygen ivf 100/hr [id number] US abd reviewed breathing and renal function is better REVIEW OF SYSTEMS: Cannot get as she is altered. OBJECTIVE: VITAL SIGNS: NAD, arouses but not too interactive GENERAL: In bed, altered, confused. HEENT: Normocephalic atraumatic. NECK: Supple. Throat midline. LUNGS: Bilateral air entry, decreased breath sounds, few crackles. CARDIOVASCULAR: S1, S2. No murmurs, rubs, or gallops. ABDOMEN: Soft, nontender. EXTREMITIES: No clubbing, no cyanosis. trace edema in the legs. INTEGUMENT: No rash, no purpura. LABORATORY DATA: 3.2 k, cr 2.41, hco3 20, wbc 6.4 wbc, 30 hct, plt 48 INR 1.84 IMPRESSION: 1. Urinary tract infection. 2. Severe sepsis. 3. Acute on chronic kidney failure. 4. Metabolic acidosis. 5. Thrombocytopenia. 6. Cirrhosis. 7. History of rheumatoid arthritis. 8. Encephalopathy, hepatic plus or minus toxic metabolic. 9. Gastroesophageal reflux disease. 10. Chronic pain. 11. Hypertension. 12. History of depression. 13. Rectal prolapse. Continue IVF per renal Antibiotics. Preoperative for tomorrow to elevate the prolapse +/- colostomy --check ABG given the mentation is hard to follow --check CXR to ensure no fluid overload --Surgeon to consider ascites drainage too, if feasible Follow up the cultures. Medicines for hepatic encephalopathy. Recheck ammonia level if she is not awakening well Thank you very much, Dr. Amador for allowing me a chance to participate in care of Ms. Coleman. Please call for questions.
[2018-10-13] MEDS ORDERED: POTASSIUM CHLORIDE 20MEQ/100ML 200 ML IV ONE (13:30)
[2018-10-13 13:38] LABS: HIV 1&2 AB SCREEN NON-REACTIVE (NONREACTIVE)
--- NOTE | 2018-10-13 13:46 | NUR ---
Paged X3 Mrs Urrutia regarding consent for Procedure. Talked to Micki Mederos she said she will be here after 8pm
--- NOTE | 2018-10-13 14:31 | Diagnostic Imaging Report ---
EXAMINATION: CHEST SINGLE (PORTABLE) INDICATION: Shortness of breath COMPARISON: None FINDINGS: LINES/TUBES:EKG leads overlie the chest. LUNGS:The lung volumes are low. There is perihilar fullness and indistinctness of the pulmonary vasculature. No focal consolidation. PLEURA:No pleural effusion or pneumothorax. MEDIASTINUM:The cardiomediastinal silhouette appears normal in size and shape. BONES/SOFT TISSUES:Chronic deformity of the right humeral head and severe degenerative changes of the right glenohumeral joint. ABDOMEN:No free air under the diaphragm. IMPRESSION: Low lung volumes with mild pulmonary interstitial edema. Signed by: Naveed Maki MD on 10/13/2018 2:27 PM
[2018-10-13 14:47] LABS: ABG HCO3 23 mmol/L (23-28); ABG PCO2 27 mmHg (41-51); ABG PH 7.54 (7.31-7.41); ABG PO2 71 mmHg (80-105)
--- NOTE | 2018-10-13 14:52 | NUR ---
Paged Dr Mar regarding ABG result, awaiting call back. Patient not in any distress
[2018-10-13] MEDS ORDERED: ALBUMIN 25% 12.5GM 0.25 GM/ML BTL IV ONE (15:00)
[2018-10-13] MEDS: LEVOFLOXACIN 250MG/D5W 50ML 50 ML IV SCH (15:16)
[2018-10-13] MEDS ORDERED: ALBUMIN 5% 250ML 500 ML IV ONE (15:30)
[2018-10-13] MEDS: DEXTROSE 5% 1,000 ML IV SCH ×2 (16:15→23:00)
--- NOTE | 2018-10-13 16:18 | NUR ---
patient up in bed, tolerated 10% of dinner, not in in any distress
[2018-10-13] MEDS ORDERED: PHYTONADIONE 10 MG/ML AMP SQ ONE (18:15)
--- NOTE | 2018-10-13 19:12 | NUR ---
WALKING ROUNDS PERFORMED, RECEIVED PT LAYING SEMI FOWLERS IN BED, AAOX0, RR EVEN AND NON-LABORED, O2 BY NC AT 2L. NO S/SX OF DISTRESS NOTED. LEFT PT LAYING SEMI FOWLERS IN BED, BED IN LOW LOCKED POSITION, SIDE RAILS UPX2, CALL LIGHT AND PHONE WITHIN REACH.
--- NOTE | 2018-10-13 19:28 | NUR ---
CALL PLACED TO MATTIE ROWLEY, PATIENTS SISTER, FOR CONSENT PAPERWORK FOR PATIENT GOING TO SURGERY AND TRANSFUSION OF BLOOD PRODUCTS, NO ANSWER WILL CONTINUE TO ATTEMPT CALL PLACED TO JOVANA KEN, PATIENTS FRIEND, NO ANSWER WILL CONTINUE TO CALL.
--- NOTE | 2018-10-13 21:00 | NUR ---
ALTERNATING PRESSURE PUMP APPLIED TO MATTRESS FOR PRESSURE ULCER PREVENTION.
--- NOTE | 2018-10-13 21:30 | NUR ---
FRIEND JOVANA BRITO AT BEDSIDE. PT IS CURRENTLY MOANING AND WILL ONLY OPEN EYES TO STIMULUS. FRIENDS REPORTS THAT DURING THE DAY THE PATIENT WAS ABLE TO TALK AND RESPOND TO QUESTIONS, ALSO SAID THAT PATIENT SPOKE ON THE PHONE WITH HER SISTER. 3+ PITTING EDEMA NOTED TO BILATERAL UPPER EXTREMITIES. POC EXPLAINED TO CALL MD SANCHEZ.
--- NOTE | 2018-10-13 21:46 | NUR ---
SPOKE WITH MD SANCHEZ CONCERNING PATIENT STATUS. ORDERS RECEIVED TO ATTEMPT TO GIVE LACTULOSE TO PATIENT AND IF UNABLE THEN TO INSERT NGT FOR MEDICATION ADMINISTRATION. ALSO INFORMED MD SANCHEZ, UNABLE TO GET IN CONTACT WITH FAMILY FOR CONSENT FOR SURGERY OR PLT ADMINISTRATION. FRIEND JOVANA BRITO AT BEDSIDE ATTEMPTING TO CALL FAMILY.
[2018-10-13] MEDS ORDERED: LACTULOSE SYRUP 20 GM/30 ML UDC PO ONE (22:00)
[2018-10-13] MEDS ORDERED: THIAMINE HCL INJ 100 MG/ML 2ML VIAL IV ONE (22:00)
--- NOTE | 2018-10-13 22:35 | NUR ---
DIAPER CHANGE PERFORMED, PT HAD SMALL LOOSE STOOL IN DIAPER. DURING DIAPER CHANGE PT TELLING THE NURSES NO AND APPEARED IN PAIN, PT DID NOT OPEN EYES OR ATTEMPT TO STOP DIAPER CHANGE, VERBALIZATION ONLY. ONCE DIAPER CHANGED FINISHED ATTEMPTED TO SIT PATIENT UP AND GIVE MEDICATION ORALLY. UNSUCCESSFUL.
--- NOTE | 2018-10-13 22:50 | NUR ---
NGT INSERTED TO (R) NARE WITH CHARGE NURSE Carlitos VITALE RN AT SIDE. BUBBLES NOTED BY AUSCULTATION WHEN AIR BOLUS INJECTED INTO NGT. WILL ORDER CXRAY FOR PLACEMENT.
--- NOTE | 2018-10-13 23:04 | NUR ---
CALL PLACED FOR MD RAMIREZ TO NOTIFY ABOUT PLT'S NOT BEING ADMINISTERED, PENDING FAMILY FOR CONSENT. WAITING FOR CALLBACK.
--- NOTE | 2018-10-13 23:05 | NUR ---
CALL PLACED FOR MD DIAZ TO NOTIFY ABOUT NO CONSENT FOR SURGERY AT THIS TIME, PENDING FAMILY FOR CONSENT. WAITING FOR CALLBACK.
[2018-10-14] VITALS (9 sets, daily range): BP systolic 133–153; BP diastolic 63–74
--- NOTE | 2018-10-14 00:08 | Diagnostic Imaging Report ---
Abdomen/KUB INDICATION: ^NGT PLACEMENT ^[id number] ^2320 ^Y COMPARISON: CT abdomen/pelvis 10/11/2014. FINDINGS: Portable, supine image obtained at 2322 hours. Medical Devices: Nasogastric tube terminates in the proximal stomach Bowel: Unremarkable bowel gas pattern. Mild gaseous distention of the large bowel without dilatation. No pneumatosis. Free air: None Abdominal calcifications: None Organomegaly: None Lung bases: Clear Bones: Unremarkable IMPRESSION: Enteric tube as described above. Unremarkable bowel gas pattern. Signed by: Dr. Emerson Joyner MD on 10/14/2018 12:05 AM
[2018-10-14] MEDS: SODIUM CHLORIDE 0.9% 250ML IRRIG IR SCH ×7 (00:25→23:48)
[2018-10-14] MEDS: HYDROCODONE/APAP 5MG-325MG TAB PO PRN ×2 (00:25→11:36)
--- NOTE | 2018-10-14 05:27 | NUR ---
SPOKE WITH MD DIAZ CONCERNING NO CONSENT SIGNED, UNABLE TO GET FAMILY TO RETURN CALLS FOR CONSENT. ORDERS RECEIVED TO HAVE DAY SHIFT CONTINUE TO GET IN CONTACT WITH FAMILY. ORDER RECEIVED FOR X2 FFP. SPOKE WITH MD VALERIO COVERING FOR MD STARK CONCERNING INTAKE OF FLUIDS AND EDEMATOUS BUE. ORDERS RECEIVED TO DECREASE IVF TO 40 ML/HR.
[2018-10-14 06:28] LABS: EOSINOPHILS % 0.6 % (0.0-6.0); HEMATOCRIT 27.5 % (34.2-44.1); HEMOGLOBIN 9.3 g/dL (12.0-16.0); LYMPHOCYTES # (AUTO) 0.9 (1.0-3.2); LYMPHOCYTES % 18.3 % (18.0-39.1); MEAN CORPUSCULAR HEMOGLOBIN 32.5 pg (28-32); MEAN CORPUSCULAR HGB CONC 33.8 g/dL (31-35); MEAN CORPUSCULAR VOLUME 96.2 fL (81-99); MONOCYTES # (AUTO) 0.5 (0.2-0.8); MONOCYTES % 10.5 % (4.4-11.3); NEUTROPHILS # (AUTO) 3.5 (2.1-6.9); NEUTROPHILS % 69.8 % (38.7-80.0); RED BLOOD COUNT 2.86 x10e6/uL (3.6-5.1); RED CELL DISTRIBUTION WIDTH 18.5 % (11.7-14.4)
[2018-10-14 06:30] LABS: PLATELET COUNT 37 x10e3/uL (140-360)
--- NOTE | 2018-10-14 06:31 | NUR ---
CRITICAL PLATELET COUNT CALLED TO MD SANCHEZ. NO NEW ORDERS RECEIVED.
[2018-10-14 06:38] LABS: INR 1.74
[2018-10-14 06:39] LABS: PARTIAL THROMBOPLASTIN TIME 37.1 seconds (23.8-35.5)
[2018-10-14 06:45] LABS: ALBUMIN 2.4 g/dL (3.5-5.0); ALBUMIN/GLOBULIN RATIO 0.7 (0.8-2.0); CALCIUM 8.1 mg/dL (8.4-10.2); CREATININE, SERUM 2.3 mg/dL (0.57-1.11); MAGNESIUM 1.7 MG/DL (1.3-2.1); PHOSPHORUS 4.8 MG/DL (2.3-4.7)
--- NOTE | 2018-10-14 07:15 | NUR ---
Received patient lying in bed with eyes closed. Respiration even and unlabored without SOB. Call light in reach.
--- NOTE | 2018-10-14 07:25 | NUR ---
Call placed to sister, Dixie Candelario, and left a message for her to return call [facility] for consent for blood products and surgery.
--- NOTE | 2018-10-14 08:44 | NUR ---
Call placed to Dr. bradford to inform that patient had a SIRS alert on the sepsis screen. Patient has had fluids and on the right antibiotics for her blood cultures. Will continue to monitor
--- NOTE | 2018-10-14 08:56 | NUR ---
Call placed to Dr. Peters to inform of potassium level. Awaiting orders
[2018-10-14] MEDS ORDERED: SODIUM CHLORIDE 0.9% 250ML 250 ML ONE (09:09)
[2018-10-14] MEDS ORDERED: POTASSIUM CHLORIDE 20MEQ/100ML 200 ML IV ONE (09:30)
[2018-10-14] MEDS: MULTIVITAMINS 5 ML LIQUID GT SCH (09:39)
[2018-10-14] MEDS: FOLIC ACID 1 MG TAB PO SCH (09:39)
[2018-10-14] MEDS: SERTRALINE HCL 50 MG TAB PO SCH (09:40)
[2018-10-14] MEDS: PANTOPRAZOLE SODIUM 40 MG SUSPDR.PKT PO SCH (09:40)
[2018-10-14] MEDS: LACTULOSE SYRUP 20 GM/30 ML UDC PO SCH ×3 (09:40→21:09)
[2018-10-14] MEDS: RIFAXIMIN 550 MG TABLET PO SCH ×2 (09:40→18:00)
--- NOTE | 2018-10-14 09:45 | NUR ---
Informed DUY Robledo of dr. lizama regarding her SIRS alert. No new orders. Continue to monitor
--- NOTE | 2018-10-14 09:46 | NUR ---
Platelets infusing at this time. Patient tolerating well.
[2018-10-14] MEDS: DEXTROSE 5% 1,000 ML IV SCH (10:48)
--- NOTE | 2018-10-14 11:14 | NUR ---
New IV started from lead based paint technician in the 18G right AC.
--- NOTE | 2018-10-14 11:31 | NUR ---
Was asked to start a second IV access on the patient. Attempted 7 times unsuccessfully. While attempting the IV's, the patient did not move nor did the patient verbalize a word. The LOC of the patient has gone from talking yesterday and opening her eyes this morning to only responding with moans during the procedure attempts. The anesthesiologist was called and I verbalized my concerns about the patient going under anesthesia while she is so compromised and the anesthesiologist, Dr. Davalos, was specific and explained that he did not know if my concern was the fact that I could not get access or the change in the patients LOC. I verbalized that my concern was the patients LOC change. He then stated that he does surgery on patients "like this" all the time and that he was "in no more of a position to tell a surgeon that they should reconsider surgery on a patient than you are". Dr. Davalos asked that the patients family members phone number be on the front of a chart and that he will evaluate her when she gets to pre op.
--- NOTE | 2018-10-14 12:45 | NUR ---
Patient went to OR at this time. Both platelet units were infused. Informed Dr. Moran that we were unable to get to the FFP at this time.
--- NOTE | 2018-10-14 12:57 | NUR ---
MEDICINE Coverage for Dr Cheema Date: 10/14/18 SUBJECTIVE: patient with further altered mentation k low getting platelets preoperative evaluation NGT placed to ensure patient gets lactulose REVIEW OF SYSTEMS: Cannot get as she is altered. OBJECTIVE: VITAL SIGNS: NAD, arouses but lethargic GENERAL: In bed, altered, confused. HEENT: Normocephalic atraumatic. NECK: Supple. Throat midline. LUNGS: Bilateral air entry, decreased breath sounds, limited CARDIOVASCULAR: S1, S2. No murmurs, rubs, or gallops. ABDOMEN: Soft, nontender. EXTREMITIES: No clubbing, no cyanosis. 1-2+ edema INTEGUMENT: No rash, no purpura. LABORATORY DATA: INR 1.74. plt 37. 5 wbc. hct 28. 3.0 k. bun 74. cr 2.3. 22 co2. IMPRESSION: 1. Urinary tract infection. Klebsiella bacteremia. 3. Acute on chronic kidney failure. 5. Thrombocytopenia. 6. Cirrhosis. 7. Hx rheumatoid arthritis. 8. Encephalopathy, hepatic +/- toxic metabolic. 9. Gastroesophageal reflux disease. 10. Chronic pain. 11. Hypertension. 12. Hx depression. 13. Rectal prolapse. Continue IVF per renal Antibiotics. Preoperative for tomorrow to reduce the prolapse +/- colostomy --Surgeon to consider ascites drainage too, if feasible Follow up the cultures. Medicines for hepatic encephalopathy. Recheck ammonia level intermittently if she is not awakening well Consider Neurology consult Thank you very much, Dr. Cheema for allowing me a chance to participate in care of Ms. Coleman. Please call for questions.
--- NOTE | 2018-10-14 13:17 | NUR ---
Surgery cancelled at this time.
[2018-10-14] MEDS: CEFEPIME 1GM/NS 0.9% 50 ML 50 ML IV SCH (13:45)
[2018-10-14] MEDS: LEVOFLOXACIN 250MG/D5W 50ML 50 ML IV SCH (14:45)
[2018-10-14 15:04] LABS: BASOPHILS % 0.2 % (0.0-1.0); EOSINOPHILS % 0.9 % (0.0-6.0); HEMOGLOBIN 8.7 g/dL (12.0-16.0); LYMPHOCYTES # (AUTO) 0.9 (1.0-3.2); LYMPHOCYTES % 19.6 % (18.0-39.1); MEAN CORPUSCULAR HEMOGLOBIN 32.3 pg (28-32); MEAN CORPUSCULAR HGB CONC 32.2 g/dL (31-35); MEAN CORPUSCULAR VOLUME 100.4 fL (81-99); MONOCYTES # (AUTO) 0.4 (0.2-0.8); MONOCYTES % 7.8 % (4.4-11.3); NEUTROPHILS # (AUTO) 3.2 (2.1-6.9); NEUTROPHILS % 70.6 % (38.7-80.0); RED BLOOD COUNT 2.69 x10e6/uL (3.6-5.1); RED CELL DISTRIBUTION WIDTH 18.3 % (11.7-14.4)
[2018-10-14 15:09] LABS: PLATELET COUNT 86 x10e3/uL (140-360)
--- NOTE | 2018-10-14 15:45 | NUR ---
PT IS FROM [facility] AND WISHES TO RETURN
--- NOTE | 2018-10-14 16:06 | NUR ---
Patient went to IR for central line placement
--- NOTE | 2018-10-14 17:11 | NUR ---
Patient returned from radiology. Right IJ in place. Awaiting confirmation to use orders.
--- NOTE | 2018-10-14 19:04 | NUR ---
Patient lying in bed with eyes closed. respiration even and unlabored. Report given to retail shift leader. Call light in reach.
--- NOTE | 2018-10-14 20:12 | Diagnostic Imaging Report ---
EXAMINATION: Head CT without contrast. HISTORY:Altered mental status. COMPARISON:None. TECHNIQUE: Multidetector axial images were obtained from the foramen magnum to the vertex without contrast. The images were reconstructed using brain and bone algorithms. Thin section brain images were reformatted into coronal and sagittal planes. Dose modulation, iterative reconstruction, and/or weight based adjustment of the mA/kV was utilized to reduce the radiation dose to as low as reasonably achievable. Intravenous contrast: None IMAGE QUALITY: Suboptimal evaluation particularly at the level of skull base and posterior fossa structures due to streak artifacts. FINDINGS: Skull/scalp: No lytic or blastic. lesions. No surgical changes. Parenchyma: Nonspecific few, scattered supratentorial white matter hypodensity are likely related to small vessel ischemic changes. Questionable focal hypodensity in the mela may represent chronic lacunar infarct or an artifact. No acute hemorrhage, mass or acute major vascular territorial infarct. Arteries: No density suggestive of thrombosis. Dural sinuses: No abnormal density suggestive of thrombosis. Ventricles: No hydrocephalus or displacement. Extra-axial spaces: No abnormal density. Brain volume: Mild generalized cerebral volume loss. Craniocervical junction: No mass, Chiari malformation, or basilar invagination. Sella: No mass. Paranasal/mastoid sinuses: Imaged portions unremarkable. IMPRESSION: No acute intracranial abnormality. Mild generalized cerebral volume loss and minimal supratentorial white matter microvascular ischemic changes. Chronic lacunar infarct vs an artifact in the mela. Signed by: Dr. Shazia Fuentes M.D. on 10/14/2018 8:08 PM
[2018-10-14] MEDS: FUROSEMIDE INJ 10 MG/ML 4 ML VIAL IV SCH (20:42)
[2018-10-15] VITALS (8 sets, daily range): BP systolic 137–173; BP diastolic 65–79
--- NOTE | 2018-10-15 01:40 | Consultation ---
DATE OF CONSULTATION: 10/14/2018 Neurology Consult Note HISTORY OF PRESENT ILLNESS: Ms. Coleman is a 63-year-old woman with an extensive past medical history, admitted to [facility] on October 11, 2018, with possible pneumonia, suspected urinary tract infection, and chronic rectal prolapse. Unfortunately, the patient is encephalopathic and unable to provide any medical history. History is obtained from review of the electronic medical records. On October 11, 2018, Ms. Coleman was sent from her skilled nursing with rectal prolapse. In the emergency center, the patient was afebrile with a blood pressure of 147/114 mmHg. Ms. Coleman was tachycardic with a heart rate of 117 beats per minute. She was tachypneic as well with a respiratory rate of 24 breaths per minute. Her general and neurological examinations were significant for bilateral lower extremity pitting edema as well as encephalopathy. More specifically, Ms. Coleman was disoriented to time. Blood and urine studies collected in the emergency center were significant for nkdhf-jy-bvuflkp kidney disease, and elevated lactate, and elevated BNP, and a urinalysis suspicious for urinary tract infection. A chest x-ray performed while the patient was in the emergency center was suspicious for pneumonia as well. Therefore, Ms. Coleman was admitted to [facility] for further evaluation and treatment of possible pneumonia, suspected urinary tract infection, and chronic rectal prolapse. During her hospitalization, Ms. Coleman was found to be septic secondary to Klebsiella pneumoniae in the blood stream. She is being treated with intravenous antibiotics and the Infectious Disease service is consulted. For treatment of cxucj-my-ghcjnmq kidney disease and electrolyte replacement, the patient is being followed by Nephrology. Ms. Coleman was to be taken to the operating room today, October 14, 2018, for repair of rectal prolapse. However, the surgeon, Dr. Moran, noted the patient to be more encephalopathic than she was upon admission. Surgery was canceled and the patient was taken back to her room. Subsequently, Ms. Coleman was found by the primary attending, Dr. Ochoa, to be more encephalopathic than she had been over the preceding 2-3 days. Therefore, Neurology consultation was placed for further evaluation and treatment of worsening encephalopathy. Of note, Ms. Coleman's baseline cognitive function is unknown. REVIEW OF SYSTEMS: Unable to obtain secondary to the patient being encephalopathic. PAST MEDICAL HISTORY: Hypertension, osteoarthritis, rheumatoid arthritis, gastroesophageal reflux disease, hepatitis C, cirrhosis secondary to alcoholism and hepatitis C with portal hypertension and ascites, depression, chronic pain, rectal prolapse, history of alcoholism. PAST SURGICAL HISTORY: Right knee surgery. PAST HOSPITALIZATIONS: Surgeries/procedures as listed. FAMILY MEDICAL HISTORY: Hypertension, rheumatoid arthritis. SOCIAL HISTORY: Ms. Coleman is reportedly . She is a skilled nursing resident. The patient is retired. There is no reported tobacco or recreational drug use. As stated in the history of present illness, Ms. Coleman does have a known history of alcoholism. She previously consumed 6 glasses of vodka per day. At present, the patient does not consume alcohol. HOME MEDICATIONS: Folic acid 1 mg by mouth daily, hydrocodone-acetaminophen 5- 325 mg 1 tablet by mouth every 4 hours as needed for pain, lactulose, losartan 50 mg by mouth daily, multivitamin 1 tablet by mouth daily, phosphorus/sodium packet 1 packet by mouth daily, oxycodone-acetaminophen 5-325 mg 1 tablet by mouth every 4 hours as needed for pain, Protonix 40 mg by mouth daily, potassium chloride 20 mEq by mouth daily, rifaximin 550 mg by mouth twice daily, Zoloft 50 mg by mouth daily, spironolactone 25 mg by mouth twice daily, thiamine 100 mg by mouth daily. HOSPITAL MEDICATIONS: Cefepime, folic acid, Lasix, hydrocodone-acetaminophen, lactulose, levofloxacin, multivitamin, Protonix, rifaximin. ALLERGIES: NO KNOWN DRUG ALLERGIES. NO KNOWN FOOD ALLERGIES. NO KNOWN ALLERGIES TO LATEX. NO KNOWN ALLERGIES TO IODINE OR OTHER CONTRAST MATERIALS. PHYSICAL EXAMINATION: VITAL SIGNS: Height 62 inches, weight 129 pounds, BMI 23.6 kg/m2, blood pressure 150/72 mmHg, pulse 85 beats per minute, respiratory rate 17 breaths per minute, and oxygen saturation 94% on 2 L by nasal cannula. GENERAL: The patient is sleeping. She does not respond to verbal stimuli. She moans and grimaces to central noxious stimulation. Normal body habitus. HEENT: Normocephalic, atraumatic. Pupils are equal, round, and reactive to light. Moist mucous membranes. NECK: Supple. No appreciable thyromegaly. No appreciable carotid bruits. CARDIOVASCULAR: S1, S2, regular rate and rhythm. No murmurs, rubs, or gallops. RESPIRATORY: Clear to auscultation bilaterally. No wheezes, rhonchi, or rales. EXTREMITIES: The skin is warm and dry. No clubbing or cyanosis. There is positive dependent edema in both hands/arms. The posterior tibial and dorsalis pedis pulses are 1+ and symmetric. SKIN: Multiple ecchymoses over the arms and legs. NEUROLOGIC: Memory/Attention: The patient is sleeping. She does not respond to verbal stimuli. She moans and grimaces to central noxious stimulation. Cranial Nerves: Pupils are 4 mm and briskly reactive to 2 mm. Corneal, oculocephalic, and gag reflexes are intact. The face appears symmetric. Strength: Bulk is diminished in both arms and both legs. Ms. Coleman withdraws both arms and both legs to peripheral noxious stimulation. Tone is normal. DTRs: Deep tendon reflexes are 2+ and symmetric at the triceps, biceps, and brachioradialis. Deep tendon reflexes are absent and symmetric at the patellas and Achilles. Plantar responses are flexor bilaterally. Sensation: Sensation is as per motor exam. Cerebellar: Unable to assess secondary to encephalopathy. Gait: Deferred. Speech: The patient does not speak during the encounter. Involuntary movements: None. Pronator Drift: As per motor exam. LABORATORY DATA: The most recent comprehensive metabolic panel is significant for potassium of 3.0, chloride of 109, BUN of 74, creatinine of 2.30, estimated GFR of 21, calcium of 8.1, phosphorus of 4.8, total bilirubin of 1.9, AST of 75, total protein of 5.7, albumin of 2.4. Cardiac enzymes are negative x3. Ammonia 88, 66. Lactic acid 42.6. B-natriuretic peptide 124.1. The CBC with differential and platelets revealed a white blood cell count of 4.49 with a normal differential. The hemoglobin and hematocrit are 8.7 and 27.0, respectively. The platelet count is 86. An arterial blood gas collected on October 13, 2018, revealed a pH of 7.54, pCO2 of 27, pO2 of 71, bicarbonate of 23, oxygen saturation of 96.0, and base excess of 0.0, and FiO2 of 24. PT 21.0, INR 1.74, PTT 37.1. A urinalysis collected on October 12, 2018, revealed slightly cloudy urine with 6-10 red blood cells, 6-10 white blood cells, few epithelial cells, and few bacteria. Random urine sodium is less than 20. Urine creatinine is 92.33. A urine immunofixation is pending. Hepatitis A IgM antibody negative. Hepatitis B surface antigen negative. Hepatitis B core IgM antibody negative. Hepatitis C antibody greater than 11.0. HIV 1 and 2 antibody nonreactive. HIV p24 antigen nonreactive. Blood cultures collected on October 11, 2018, grew Klebsiella pneumonia. A urine culture collected on October 11, 2018, revealed no growth after 36-48 hours. A urine culture collected on October 12, 2018, revealed no growth after 36-48 hours. Blood cultures collected on October 14, 2018, are pending. DIAGNOSTIC STUDIES: Electrocardiogram on 10/11/2018: Sinus tachycardia at 117 beats per minute with occasional premature ventricular complexes. Chest x-ray on 10/11/2018: Right middle lobe and lower lobe airspace opacities suggestive of pneumonia. CT of the abdomen and pelvis on 10/11/2018: 1. Marked pelvic floor laxity with uterine and rectal prolapse. No evidence of bowel obstruction. 2. Cirrhosis and suspicion of portal hypertension with moderate abdominopelvic ascites. 3. Diffuse gastric wall thickening. This could either represent an infiltrative gastric mass or the result of numerous varices. Recommend correlation with endoscopy. 4. Bilateral pleural effusions and bibasilar atelectasis. 5. Tiny nonobstructing right intrarenal calculus. 6. Renal ultrasound on 10/12/2018: Normal renal echogenicity. No obstruction. Ascites. 7. Chest x-ray on 10/13/2018: Low lung volumes with mild pulmonary interstitial edema. 8. Abdomen x-ray on 10/13/2018: Enteric tube as described above. Unremarkable bowel gas pattern. ASSESSMENT AND PLAN: Ms. Coleman is a 63-year-old woman with an extensive past medical history, admitted to [facility] with rectal prolapse, sepsis secondary to Klebsiella pneumoniae in the blood, and vqwwq-hh-uviicvg kidney disease, and encephalopathy, which has worsened as of October 14, 2018. The patient's neurological examination is markedly limited by encephalopathy. Ms. Coleman's laboratory data and other diagnostic studies have been reviewed and are documented above. It is probable the patient has a mixed encephalopathy consisting of a metabolic encephalopathy secondary to sepsis, cirrhosis, and ntiwe-cr-lqvpyhu kidney disease with toxic encephalopathy secondary to medication effect. However, due to the patient's mental status, other causes of encephalopathy cannot be easily excluded. Therefore, further evaluation will be ordered as follows: 1. A CT of the brain without contrast will be performed. 2. Additional blood work will be ordered to evaluate for other treatable causes of encephalopathy. A comprehensive metabolic panel, magnesium level, phosphorus level, and complete blood count with differential and platelets is ordered for October 15, 2018, at 05:00. Additional studies will be added as follows: An ammonia level, lactic acid, BNP, TSH, vitamin B1 level, vitamin B12 level, folate level, methylmalonic acid, and RPR. Blood cultures were collected on October 14, 2018, and are pending. Urine cultures have been negative x2. A repeat chest x-ray is ordered for October 15, 2018. 3. Defer treatment of the remaining medical comorbidities to the primary and other services. Thank you for this consultation. I will continue to follow the patient while she remains in the hospital. TIME SPENT: 70 minutes. Liliana Giron MD CP/MARCOS /[id number] VANNESSA
[2018-10-15] MEDS: SODIUM CHLORIDE 0.9% 250ML IRRIG IR SCH ×3 (02:18→11:17)
[2018-10-15 05:32] LABS: EOSINOPHILS % 0.5 % (0.0-6.0); HEMATOCRIT 27.4 % (34.2-44.1); LYMPHOCYTES # (AUTO) 0.7 (1.0-3.2); LYMPHOCYTES % 15.6 % (18.0-39.1); MEAN CORPUSCULAR HEMOGLOBIN 32.4 pg (28-32); MEAN CORPUSCULAR HGB CONC 32.8 g/dL (31-35); MEAN CORPUSCULAR VOLUME 98.6 fL (81-99); MONOCYTES # (AUTO) 0.4 (0.2-0.8); MONOCYTES % 9.1 % (4.4-11.3); NEUTROPHILS # (AUTO) 3.2 (2.1-6.9); NEUTROPHILS % 74.1 % (38.7-80.0); PLATELET COUNT 93 x10e3/uL (140-360); RED BLOOD COUNT 2.78 x10e6/uL (3.6-5.1); RED CELL DISTRIBUTION WIDTH 18.2 % (11.7-14.4)
[2018-10-15] MEDS: LACTULOSE SYRUP 20 GM/30 ML UDC PO SCH ×3 (05:36→20:50)
[2018-10-15 06:00] LABS: ALBUMIN 2.3 g/dL (3.5-5.0); ALBUMIN/GLOBULIN RATIO 0.7 (0.8-2.0); ANION GAP 15.8 mmol/L (8-16); CALCIUM 8.1 mg/dL (8.4-10.2); CREATININE, SERUM 2.17 mg/dL (0.57-1.11); MAGNESIUM 1.6 MG/DL (1.3-2.1); PHOSPHORUS 4.4 MG/DL (2.3-4.7)
[2018-10-15 06:08] LABS: B-TYPE NATRIURETIC PEPTIDE2 973.2 pg/mL (0-100)
[2018-10-15 06:09] LABS: POTASSIUM 2.8 mmol/L (3.5-5.1)
--- NOTE | 2018-10-15 06:23 | Diagnostic Imaging Report ---
ADDENDUM #1 Under the section entitled "LINES", the second sentence should read: "Right IJ catheter terminates in the SVC without pneumothorax." Signed by: Dr. Emerson Joyner MD on 10/16/2018 6:07 AM ORIGINAL REPORT EXAMINATION: CHEST SINGLE (PORTABLE) COMPARISON: 10/13/2018 INDICATION: Interstitial edema ^screening ^[id number] ^0550 DISCUSSION: Frontal view of the chest obtained at 0557 hours. HEART AND MEDIASTINUM: The heart is normal in size LINES: Enteric tube extends past the diaphragm. Left IJ catheter terminates in the SVC without pneumothorax. LUNGS: New right middle lobe consolidation or atelectasis. Left lung is clear. Pulmonary vascular markings are normal PLEURA: No large effusions. No pneumothorax. BONES AND SOFT TISSUES: Stable severe degenerative changes of the right shoulder. The soft tissues are normal. IMPRESSION: Right middle lobe atelectasis or pneumonia. Support devices as described above. No pneumothorax. Signed by: Dr. Emerson Joyner MD on 10/15/2018 6:20 AM
[2018-10-15] MEDS ORDERED: POTASSIUM CHLORIDE 20MEQ/15ML UDC NG ONE (06:30)
[2018-10-15 07:00] LABS: FOLATE 33.5 ng/mL (7.0-15.4)
--- NOTE | 2018-10-15 07:08 | NUR ---
Received patient lying in bed with eyes closed. Respiration even and unlabored without SOB. Call light in reach.
--- NOTE | 2018-10-15 09:19 | NUR ---
Spoke with Dr. Arellano regarding low potassium. Informed it was 2.[address] bradford replaced with 60meq via NGT. New order for IV mag and IV potassium, do not hold lasix, and repeat later this afternoon.
[2018-10-15] MEDS ORDERED: MAGNESIUM SULFATE 2GM/50ML 50 ML IV ONE (09:30)
[2018-10-15] MEDS ORDERED: POTASSIUM CHLORIDE 20MEQ/100ML 100 ML IV ONE (09:30)
[2018-10-15] MEDS: RIFAXIMIN 550 MG TABLET PO SCH ×2 (09:43→17:11)
[2018-10-15] MEDS: FUROSEMIDE INJ 10 MG/ML 4 ML VIAL IV SCH ×2 (09:43→20:50)
[2018-10-15] MEDS: FOLIC ACID 1 MG TAB PO SCH (09:43)
[2018-10-15] MEDS: PANTOPRAZOLE SODIUM 40 MG SUSPDR.PKT PO SCH (09:43)
[2018-10-15] MEDS: MULTIVITAMINS 5 ML LIQUID GT SCH (09:43)
[2018-10-15] MEDS: DEXTROSE 5% 1,000 ML IV SCH ×3 (10:17→20:50)
[2018-10-15] MEDS: HYDROCODONE/APAP 5MG-325MG TAB PO PRN ×2 (11:18→18:30)
[2018-10-15] MEDS: CEFEPIME 1GM/NS 0.9% 50 ML 50 ML IV SCH (13:45)
--- NOTE | 2018-10-15 13:54 | NUR ---
MEDICINE Coverage for Dr Cheema Date: 10/15/18 SUBJECTIVE: ivf at 40/hr CXr with right lung infiltrate still obtunded, says 'stop it' upon moderate to large stimulus k low ngt in place REVIEW OF SYSTEMS: Cannot get as she is altered. OBJECTIVE: VITAL SIGNS: NAD, obtunded GENERAL: In bed, altered, confused. HEENT: Normocephalic atraumatic. NECK: Supple. Throat midline. LUNGS: Bilateral air entry, decreased breath sounds, limited CARDIOVASCULAR: S1, S2. No murmurs, rubs, or gallops. ABDOMEN: Soft, nontender. EXTREMITIES: No clubbing, no cyanosis. 1-2+ edema INTEGUMENT: No rash, no purpura. LABORATORY DATA: k 2.8, hco3 22, cr 2.17. 4 wbc, 27 hct, plt 93 IMPRESSION: 1. Urinary tract infection. Klebsiella bacteremia. 3. Acute on chronic kidney failure. 5. Thrombocytopenia. 6. Cirrhosis. 7. Hx rheumatoid arthritis. 8. Encephalopathy, hepatic +/- toxic metabolic. 9. Gastroesophageal reflux disease. 10. Chronic pain. 11. Hypertension. 12. Hx depression. 13. Rectal prolapse. Continue IVF per renal Antibiotics. Preoperative tentatively to reduce the prolapse +/- colostomy --Surgeon to consider ascites drainage too, if feasible Follow up the cultures. Medicines for hepatic encephalopathy. Neurology consult Thank you very much, Dr. Cheema for allowing me a chance to participate in care of Ms. Coleman. Please call for questions.
[2018-10-15] MEDS: LEVOFLOXACIN 250MG/D5W 50ML 50 ML IV SCH (14:31)
--- NOTE | 2018-10-15 16:46 | NUR ---
Call placed to Dr. Arellano regarding repeat potassium and new order for IV potassium 40meq for one time. Order noted
[2018-10-15] MEDS ORDERED: POTASSIUM CHLORIDE 20MEQ/100ML 200 ML IV ONE (17:00)
--- NOTE | 2018-10-15 17:23 | Progress Note ---
DATE: SUBJECTIVE: Ms. Coleman remains comfortable in bed. No complaints. NG tube in. PHYSICAL EXAMINATION: GENERAL: Currently alert, oriented, does not seem in acute distress. VITAL SIGNS: Stable: Afebrile. HEENT: She is not icteric. NECK: Supple. CHEST: Clear. HEART: S1, S2. No murmur. ABDOMEN: Soft. Bowel sounds present. No tenderness. EXTREMITIES: No edema. SKIN: No rash. IMPRESSION: 1. Sepsis on admission better. 2. Liver cirrhosis. GI is following. 3. Rectal prolapse. 4. Bacteremia, Klebsiella pneumoniae, present on admission, pansensitive source intra-abdomen. 5. Anemia. 6. Pneumonia, community acquired from Infectious Disease point of view, can change to oral Keflex 500 mg p.o. t.i.d. to finish 14 days. Keep on IV antibiotic while she is here in the hospital. Other medical problem as above. PROGNOSIS: Overall guarded. MD SRI Gamboa/MARCOS /[id number]
--- NOTE | 2018-10-15 18:50 | NUR ---
Report given to night filler. Patient lying in bed with eyes closed. Respiration even and unlabored without SOB. call light in reach
[2018-10-16] VITALS (8 sets, daily range): BP systolic 136–171; BP diastolic 65–90
[2018-10-16] MEDS: DEXTROSE 5% 1,000 ML IV SCH ×2 (05:39→16:00)
[2018-10-16] MEDS: LACTULOSE SYRUP 20 GM/30 ML UDC PO SCH ×3 (05:39→21:14)
--- NOTE | 2018-10-16 05:52 | NUR ---
Central line dressing changed using sterile technique.
[2018-10-16 06:01] LABS: ALBUMIN 2.3 g/dL (3.5-5.0); ALBUMIN/GLOBULIN RATIO 0.6 (0.8-2.0); ANION GAP 14.2 mmol/L (8-16); CREATININE, SERUM 2.18 mg/dL (0.57-1.11); PHOSPHORUS 3.6 MG/DL (2.3-4.7); POTASSIUM 3.2 mmol/L (3.5-5.1)
--- NOTE | 2018-10-16 06:11 | Diagnostic Imaging Report ---
EXAMINATION: CHEST SINGLE (PORTABLE) COMPARISON: Chest x-ray 10/15/2018 INDICATION: Pneumonia ^pneumonia ^[id number] ^0530 DISCUSSION: Frontal view of the chest obtained at 0539 hours. HEART AND MEDIASTINUM: The cardiomediastinal silhouette is unremarkable. LINES: Enteric tube extends past the diaphragm. Right IJ catheter terminates in the SVC. LUNGS: Right middle lobe consolidation/atelectasis is similar. Pulmonary veins are prominent and similar in appearance. No new findings in the left lung. PLEURA: No pleural effusion or pneumothorax. BONES AND SOFT TISSUES: Osseous structures are stable. The soft tissues are normal. IMPRESSION: No change in right middle lobe atelectasis or infiltrate. Support devices as described above. No new findings. Signed by: Dr. Emerson Joyner MD on 10/16/2018 6:08 AM
--- NOTE | 2018-10-16 06:45 | NUR ---
bedside report received, patient resting and in no distress. call bailey within reach, bed alarm on and bed in lowest position.
[2018-10-16] MEDS: MULTIVITAMINS 5 ML LIQUID GT SCH (09:00)
[2018-10-16] MEDS: PANTOPRAZOLE SODIUM 40 MG SUSPDR.PKT PO SCH (09:00)
[2018-10-16] MEDS: RIFAXIMIN 550 MG TABLET PO SCH ×2 (09:00→17:32)
[2018-10-16] MEDS: FUROSEMIDE INJ 10 MG/ML 4 ML VIAL IV SCH ×2 (09:00→21:14)
[2018-10-16] MEDS: FOLIC ACID 1 MG TAB PO SCH (09:00)
[2018-10-16] MEDS ORDERED: POTASSIUM CHLORIDE 20 MEQ TAB CR PO NR (10:30)
[2018-10-16] MEDS: CEFEPIME 1GM/NS 0.9% 50 ML 50 ML IV SCH (12:04)
[2018-10-16] MEDS: LEVOFLOXACIN 250MG/D5W 50ML 50 ML IV SCH (14:45)
--- NOTE | 2018-10-16 15:05 | NUR ---
MEDICINE Coverage for Dr Cheema Date: 10/16/18 SUBJECTIVE: 1.4 L In, 2.2 L out tube feeds 40/hr water 500 cc q 6 hrs CXR stable / mildly improved right pneumonitis REVIEW OF SYSTEMS: Cannot get as she is altered. OBJECTIVE: VITAL SIGNS: NAD, lethargic GENERAL: In bed, altered, confused. HEENT: Normocephalic atraumatic. NECK: Supple. Throat midline. LUNGS: Bilateral air entry, decreased breath sounds, limited CARDIOVASCULAR: S1, S2. No murmurs, rubs, or gallops. ABDOMEN: Soft, nontender. EXTREMITIES: No clubbing, no cyanosis. 1-2+ edema INTEGUMENT: No rash, no purpura. LABORATORY DATA: k 3.2 bun 59, cr 2.2 plt 93 IMPRESSION: 1. Urinary tract infection. Klebsiella bacteremia. 3. Acute on chronic kidney failure. 5. Thrombocytopenia. 6. Cirrhosis. 7. Hx rheumatoid arthritis. 8. Encephalopathy, hepatic +/- toxic metabolic. 9. Gastroesophageal reflux disease. 10. Chronic pain. 11. Hypertension. 12. Hx depression. 13. Rectal prolapse. Continue IVF, water intake per renal Antibiotics. Preoperative tentatively to reduce the prolapse +/- colostomy --Surgeon to consider ascites drainage too, if feasible Follow up the cultures. Medicines for hepatic encephalopathy. Neurology consult follow up. Await awakening Thank you very much, Dr. Cheema for allowing me a chance to participate in care of Ms. Coleman. Please call for questions.
[2018-10-16] MEDS ORDERED: DEXTROSE 50% SYRINGE 50 ML IV PRN (15:15)
[2018-10-16] MEDS: INSULIN LISPRO 100 UNIT/1 ML 3ML VIAL SQ SCH (17:32)
--- NOTE | 2018-10-16 19:00 | NUR ---
PT IS RESTING IN BED. RESPIRATION IS EVEN AND UNLABORED, NO DISTRESS NOTED. BED IN THE LOWEST POSITION, LOCKED, BED ALARM ON, AND CALL LIGHT WITHIN REACH. WILL CONTINUE TO MONITOR.
--- NOTE | 2018-10-16 20:30 | NUR ---
20CC RESIDUAL. WILL CONTINUE TO MONITOR.
[2018-10-17] VITALS (7 sets, daily range): BP systolic 137–163; BP diastolic 71–94
[2018-10-17] MEDS: INSULIN LISPRO 100 UNIT/1 ML 3ML VIAL SQ SCH ×4 (00:51→18:39)
[2018-10-17] MEDS: LACTULOSE SYRUP 20 GM/30 ML UDC PO SCH ×3 (06:30→22:47)
[2018-10-17] MEDS: DEXTROSE 5% 1,000 ML IV SCH ×2 (06:34→16:48)
--- NOTE | 2018-10-17 06:47 | NUR ---
50CC RESIDUAL FROM FEEDING. WILL CONTINUE TO MONITOR.
--- NOTE | 2018-10-17 07:05 | NUR ---
Received patient mid fowlers position, side rails upx2, call light within reach. Turned on bed alarm. Jevity 45ml/hr with free water 500 q6 hours via Right nare NG tube. Stopped feeding tube. Patient scheduled for procedure this PM.
[2018-10-17 08:24] LABS: MAGNESIUM 1.8 MG/DL (1.3-2.1)
[2018-10-17 08:27] LABS: ALBUMIN 2.2 g/dL (3.5-5.0); ALBUMIN/GLOBULIN RATIO 0.5 (0.8-2.0); ANION GAP 11.6 mmol/L (8-16); CALCIUM 7.8 mg/dL (8.4-10.2); CREATININE, SERUM 1.69 mg/dL (0.57-1.11)
--- NOTE | 2018-10-17 08:50 | Diagnostic Imaging Report ---
PROCEDURE: Non-tunneled central venous catheter placement Procedural Personnel Attending physician(s): Navede Maki MD Fellow physician(s): None Resident physician(s): None Advanced practice provider(s): None Pre-procedure diagnosis: Needs central venous access Post-procedure diagnosis: Same Indication: Administration of intravenous medications Additional clinical history: None Complications: No immediate complications. IMPRESSION: Insertion of right-sided non-tunneled triple-lumen temporary central venous catheter, with tip in the expected location of the cavoatrial junction. Plan: The catheter may be used immediately. PROCEDURE SUMMARY: - Venous access with ultrasound guidance - Non-tunneled central venous catheter insertion with fluoroscopic guidance - Additional procedure(s): None PROCEDURE DETAILS: Pre-procedure Consent: Informed consent for the procedure including risks, benefits and alternatives was obtained and time-out was performed prior to the procedure. Preparation (MIPS): The site was prepared and draped using all elements of maximal sterile barrier technique including sterile gloves, sterile gown, cap, mask, large sterile sheet, sterile ultrasound probe cover, hand hygiene and cutaneous antisepsis with 2% chlorhexidine. Medical reason for site preparation exception (MIPS): Not applicable Anesthesia/sedation Level of anesthesia/sedation: No sedation Anesthesia/sedation administered by: Independent trained observer under attending supervision with continuous monitoring of the patient?s level of consciousness and physiologic status Access Local anesthesia was administered. The vessel was sonographically evaluated and determined to be patent. Real time ultrasound was used to visualize needle entry into the vessel and a permanent image . Vein accessed: Internal jugular vein Access technique: Micropuncture set with 21 gauge needle Catheter placement The access site was dilated and the catheter was placed into the vein over a wire under fluoroscopic guidance. The catheter tip location was fluoroscopically verified and a permanent image was stored.. A sterile dressing was applied. Catheter placed: Bard triple lumen central venous catheter Catheter size (Georgian): 7 Catheter length (cm): 16 Catheter flush: Normal saline Catheter securement technique: Non-absorbable suture Contrast Contrast agent: None Radiation Dose Fluoroscopy time (minutes): 0.1 Reference air kerma (mGy): 0.37 Additional Details Additional description of procedure: None Equipment details: None Specimens removed: None Estimated blood loss (mL): Less than 10 Standardized report: [id number] Attestation Signer name: Naveed Maki MD I attest that I was present for the entire procedure. I reviewed the stored images and agree with the report as written. Signed by: Naveed Maki MD on 10/17/2018 8:47 AM
[2018-10-17 08:59] LABS: POTASSIUM 2.6 mmol/L (3.5-5.1)
--- NOTE | 2018-10-17 08:59 | NUR ---
Lab called and reported a critical potassium of 2.6. Will call MD and inform nurse as well
[2018-10-17] MEDS ORDERED: POTASSIUM CHLORIDE 20MEQ/100ML 300 ML IV ONE (09:00)
[2018-10-17] MEDS: FOLIC ACID 1 MG TAB PO SCH (09:00)
[2018-10-17] MEDS: PANTOPRAZOLE SODIUM 40 MG SUSPDR.PKT PO SCH (09:00)
[2018-10-17] MEDS: MULTIVITAMINS 5 ML LIQUID GT SCH (09:00)
[2018-10-17] MEDS: RIFAXIMIN 550 MG TABLET PO SCH ×2 (09:00→16:00)
--- NOTE | 2018-10-17 09:05 | NUR ---
M on the phone with in regards to surgery. Per " Spoke with . will do surgery this afternoon if potassium stable."
--- NOTE | 2018-10-17 09:05 | NUR ---
aware of lab results. Aware of orders for potassium results. See orders
[2018-10-17] MEDS ORDERED: SODIUM CHLORIDE 0.9% 250ML 250 ML ONE (12:00)
--- NOTE | 2018-10-17 12:04 | NUR ---
EDUCATED ABOUT IMM, SIGNED, FILED IN CHART, WITH COPY LEFT WITH FAMILY AT BEDSIDE.
--- NOTE | 2018-10-17 12:24 | NUR ---
aware of PT/INR results. States " Give plasma tomorrow "
[2018-10-17 12:26] LABS: INR 1.84; PROTHROMBIN TIME 21.9 seconds (11.9-14.5)
--- NOTE | 2018-10-17 12:56 | NUR ---
TF resumed as ordered Jevity 45cc/hr with free water 500ml q6 hour via right nare NG tube. Patient to have procedure tomorrow per
[2018-10-17] MEDS: CEFAZOLIN SOD 2 GM/D5W 50ML 50 ML IV SCH (13:06)
--- NOTE | 2018-10-17 13:40 | NUR ---
MEDICINE Coverage for Dr Cheema Date: 10/17/18 SUBJECTIVE: patient with RA fio2 on tube feeds water intake by feed tube still lethargic to obtunded, occ will say a few words REVIEW OF SYSTEMS: Cannot get as she is altered. OBJECTIVE: VITAL SIGNS: NAD, lethargic GENERAL: In bed, altered, confused. HEENT: Normocephalic atraumatic. NECK: Supple. Throat midline. LUNGS: Bilateral air entry, decreased breath sounds, limited CARDIOVASCULAR: S1, S2. No murmurs, rubs, or gallops. ABDOMEN: Soft, nontender. EXTREMITIES: No clubbing, no cyanosis. 1+ edema INTEGUMENT: No rash, no purpura. LABORATORY DATA: 2.6 k, cr 1.69, bun 48. 4.3 wbc. hct 27. plt 93. IMPRESSION: 1. Urinary tract infection. Klebsiella bacteremia. 3. Acute on chronic kidney failure. 5. Thrombocytopenia. 6. Cirrhosis. 7. Hx rheumatoid arthritis. 8. Encephalopathy, hepatic +/- toxic metabolic. 9. Gastroesophageal reflux disease. 10. Chronic pain. 11. Hypertension. 12. Hx depression. 13. Rectal prolapse,. symptomatic. Continue fluid intake per renal Antibiotics. Possible surgery soon to reduce the prolapse +/- colostomy Follow up the cultures. Medicines for hepatic encephalopathy. Neurology consult follow up. Await awakening further Thank you very much, Dr. Cheema for allowing me a chance to participate in care of Ms. Coleman. Please call for questions.
--- NOTE | 2018-10-17 14:46 | NUR ---
Nutrition Intervention Note RD Recommendation(s) for Physician: The patient meets criteria for MODERATE protein-calorie malnutrition. - Recommend TF of Jevity 1.2 with goal rate of 50 ml/hr (to provide 1440 kcal and 67 gm protein) - Water flushes and fluid management per MD - Recommend thiamine supplementation Plan of Care: RD following, monitoring for tolerance and adequacy, ONS rec Nutrition reason for involvement: Nutrition risk trigger MST RD Assessment 10/17: Pt continues with AMS, pt did not respond to verbal stimuli at time of visit. Per daughter at bedside NGT placed b/c pt was unable to take lactulose 2/ mentation and TF initiated 4 days ago. Pt discussed during am rounds. TF of Jevity 1.2 held for possible surgery today. Plan for surgery for prolapsed rectum changed to tomorrow, TF to be resumed with goal rate of 45 ml/hr. K low, replaced today. All questions and concerns of pt's daughter addressed at time of visit. Will monitor and continue to follow. 10/12 63yo F, who was admitted for cirrhosis and CA. Visited pt in the room. Pt was a poor historian and unable to finish most of her sentences. Per friend on bedside, pt has been eating poorly at [facility] for unknown amount of time. Her UBW has been around 120lbs. No history of diabetes was reported. Pt denied any chewing or swallowing difficulty. Pt was getting Ensure at the facility. Will continue to monitor and follow. Principal Problems/Diagnoses: Acute kidney injury in a lady with cirrhosis, ascites, portal hypertension, pneumonia, rectal prolapse PMH: cirrhosis, portal hypertension, ascites GI: LBM 10/16 Skin: no pressure wound noted Labs: 10/17: Na 142, K 2.6, BUN 48, Cr 1.69, Gluc 146- on dextrose containing IVF (10/12) BUN 79 H, Creatinine 2.91 H, Glucose 260 H, AST 94 H Meds: KCl IVPB, abx lactulose, MVI, folic acid, abx, protonix Ht: 62in Wt: 129lb BMI: 23.6kg/m2 IBW: 110lb +/- 10% Malnutrition Evaluation (10/12/2018) The patient meets criteria for MODERATE protein-calorie malnutrition. Energy intake: <50% of estimated energy requirements for >5 days Weight loss: Unknown Fat loss: Moderate hollow around orbital region Muscle loss: Moderate clavicle protrusion Supporting Evidence: Fluid accumulation: Ascites Functional Status: reduced Nutrition Prescription (Diet Order): cardiac diet Estimated Nutritional Needs: Calories: 1375 1650kcal(25-30kcal/kg/d) Weight used: UBW Protein: 55 83g(1-1.5g/kg/d) Weight used: UBW Diet Adequacy: Not meeting calorie needs, Not meeting protein needs Diet Education Needs Assessment: Diet education indicated, but patient not appropriate for education at this time. Nutrition Care Level: mod Nutrition Diagnosis: Moderate malnutrition related to inadequate oral intake as evidenced by <50% of estimated energy requirements for >5 days and moderate fat/muscle loss. Goal: Patient will meet 75-100% of estimated needs by follow up Progress: progressing Interventions: Enteral nutrition- composition, rate, route, Multivitamin/mineral supplement therapy, recommend modifications Monitoring/Evaluation: Total energy intake, Total protein intake, Modified diet, Liquid supplement, Weight change Signed: Dorene Townsend RD, LD, [facility]
--- NOTE | 2018-10-17 14:58 | Consultation ---
DATE OF CONSULTATION: 10/13/[address] Philip Ochoa. HISTORY OF PRESENT ILLNESS: Judith Coleman is a 63-year-old white female, who has been referred to me for evaluation of anemia and thrombocytopenia. No history could be obtained from the patient, as the patient is obtunded. Most of the history has been obtained through the review of the records. The patient had presented with confusion. SOCIAL HISTORY: Could not be obtained. FAMILY HISTORY: Could not be obtained. ALLERGIES: REPORTED NONE. MEDICATIONS: At this time: 1. Cefepime. 2. Levaquin. 3. Potassium. 4. Lactulose. 5. Multivitamins. 6. Dextrose. 7. Folic acid. 8. Protonix. 9. Tylenol. 10. Rifaximin. 11. Zoloft. REVIEW OF SYSTEMS: HEENT: No history could be obtained. CARDIAC: No history could be obtained. RESPIRATORY: No history could be obtained. GI: Cirrhotic as per the records. : Renal failure at the present time. MUSCULOSKELETAL: No history could be obtained. PHYSICAL EXAMINATION: GENERAL: A rather thin built female, obtunded. NECK: No adenopathy. HEART: Tachycardic. LUNGS: Show coarse crepitations. BREASTS: Deferred. ABDOMEN: Obese. RECTAL AND VAGINAL: Deferred. CENTRAL NERVOUS SYSTEM: Could not be done because of inability of the patient to cooperate. LABORATORY DATA: Hemoglobin of 9.9, hematocrit of 29.7, white count 6370, and platelets 48,000. Sodium 145, potassium 3.2, chloride 113, CO2 20, BUN 76, and creatinine 2.41. INR high at 1.8. Bilirubin high at 1.8, SGOT 68, SGPT 41, and alkaline phosphatase 137. Urinalysis shows the patient to have multiple bacteria. The patient's blood cultures are positive. IMPRESSION: 1. Anemia. 2. Thrombocytopenia. 3. Positive blood cultures. 4. Chronic renal failure. 5. Diabetes mellitus (blood sugar 260). 6. High LFTs. 7. Hypoalbuminemia of 2.0. 8. 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 9. Coagulopathy with INR of 1.7. 10. Urinary tract infection. 11. History of cirrhosis. 12. Uterine prolapse by CAT scan. 13. Rectal prolapse by CAT scan. 14. Pleural effusion by chest x-ray. 15. Right renal stone by CAT scan. 16. Lactic acidosis. 17. Hypoproteinemia of 5.7. PLAN, COMMENTS, AND SUGGESTIONS: Suggest to continue antibiotics once stable. Perhaps an EGD should be done to assess the degree of varices she could have. Prognosis remains extremely poor. No hematological intervention at this time, unless the patient does show any signs of bleeding. I will give her vitamin K. MD MIGUEL Aviles/MODL /[id number] cc: MD Dr. Fran Greenwood
[2018-10-17] MEDS: HYDROCODONE/APAP 5MG-325MG TAB PO PRN ×2 (16:46→23:08)
--- NOTE | 2018-10-17 17:00 | NUR ---
TF increased to 50ml/hr per goal rate. Patient tolerating well. No residual noted. No nausea/vomiting noted.
[2018-10-17] MEDS ORDERED: SPIRONOLACTONE 25 MG TAB PO ONE ×2 (17:45→21:00)
--- NOTE | 2018-10-17 18:00 | NUR ---
Free water changed to 300ml q6 hours as ordered
[2018-10-17 18:31] LABS: ALBUMIN 2.3 g/dL (3.5-5.0); ALBUMIN/GLOBULIN RATIO 0.6 (0.8-2.0); CALCIUM 7.8 mg/dL (8.4-10.2); CREATININE, SERUM 1.68 mg/dL (0.57-1.11)
--- NOTE | 2018-10-17 18:45 | NUR ---
Received report from day RN. The patient is laying on the bed on her back, not in distress. Bed height low, side rails up x2, call light within reach, and wheels lock. Patient will need to be NPO at midnight via NG tube feed and receive 2 bags of platelet before surgery.
--- NOTE | 2018-10-17 19:19 | NUR ---
Dr. Peters aware of lab results. See orders. Report given to oncoming nurse of patient's status. No s/s of acute distress noted.
[2018-10-17] MEDS ORDERED: POTASSIUM CHLORIDE 20MEQ/100ML 200 ML IV ONE (19:30)
[2018-10-17] MEDS: SPIRONOLACTONE 25 MG TAB PO SCH (22:47)
[2018-10-18] VITALS (8 sets, daily range): BP systolic 132–170; BP diastolic 66–85
[2018-10-18] MEDS ORDERED: SODIUM CHLORIDE 0.9% 250ML 250 ML ONE (03:48)
[2018-10-18] MEDS: LACTULOSE SYRUP 20 GM/30 ML UDC PO SCH ×3 (05:57→21:58)
[2018-10-18] MEDS: INSULIN LISPRO 100 UNIT/1 ML 3ML VIAL SQ SCH ×4 (06:00→18:32)
--- NOTE | 2018-10-18 06:12 | NUR ---
Patient received 2 units of plasma. Patient tolerated well. Plasma properly disposed. Patient's VS remained stable prior, during, and after.
[2018-10-18] MEDS ORDERED: POTASSIUM CHLORIDE 20MEQ/100ML 200 ML IV ONE (06:15)
[2018-10-18 06:19] LABS: BASOPHILS % 0.1 % (0.0-1.0); EOSINOPHILS % 0.5 % (0.0-6.0); HEMATOCRIT 28.4 % (34.2-44.1); HEMOGLOBIN 9.4 g/dL (12.0-16.0); LYMPHOCYTES # (AUTO) 0.9 (1.0-3.2); MEAN CORPUSCULAR HEMOGLOBIN 32.9 pg (28-32); MEAN CORPUSCULAR HGB CONC 33.1 g/dL (31-35); MEAN CORPUSCULAR VOLUME 99.3 fL (81-99); MONOCYTES # (AUTO) 0.7 (0.2-0.8); MONOCYTES % 7.9 % (4.4-11.3); NEUTROPHILS # (AUTO) 6.5 (2.1-6.9); NEUTROPHILS % 79.4 % (38.7-80.0); PLATELET COUNT 62 x10e3/uL (140-360); RED BLOOD COUNT 2.86 x10e6/uL (3.6-5.1); RED CELL DISTRIBUTION WIDTH 17.7 % (11.7-14.4)
[2018-10-18 06:43] LABS: ALBUMIN 2.4 g/dL (3.5-5.0); ALBUMIN/GLOBULIN RATIO 0.6 (0.8-2.0); ANION GAP 16.6 mmol/L (8-16); CALCIUM 8.4 mg/dL (8.4-10.2); CREATININE, SERUM 1.62 mg/dL (0.57-1.11); MAGNESIUM 1.9 MG/DL (1.3-2.1); PHOSPHORUS 3.2 MG/DL (2.3-4.7); POTASSIUM 3.6 mmol/L (3.5-5.1)
[2018-10-18 06:48] LABS: PLATELET ESTIMATE MARKEDLY DECREASED
[2018-10-18 06:49] LABS: LARGE PLATELETS MODERATE
[2018-10-18] MEDS: HYDROCODONE/APAP 5MG-325MG TAB PO PRN ×2 (06:50→21:58)
[2018-10-18] MEDS: SPIRONOLACTONE 25 MG TAB PO SCH ×3 (08:12→21:58)
[2018-10-18] MEDS: RIFAXIMIN 550 MG TABLET PO SCH ×2 (08:13→15:55)
[2018-10-18] MEDS ORDERED: BACITRACIN 50,000 UNIT VIAL ONE (11:58)
[2018-10-18] MEDS ORDERED: LIDOCAINE HCL 2% 30 ML TUBE ONE (11:58)
--- NOTE | 2018-10-18 12:10 | NUR ---
Taken for procedure. No s/s of acute distress noted.
--- NOTE | 2018-10-18 12:10 | NUR ---
Patient's sister, Hazel Candelario, states over the phone" My sister and I would like for Judith to be DNR." Notified of request. at bedside. Patient states "My male friend can make the decision as well." Spoke with Hazelalvaro Candelario and notified patient would like for male friend to make decision as well. Wilma Candelario states " I will speak to him. He can also make decision on her care. He should have documents where it states that I am the first to make decisions and that I am Judith's health emergency care attendant. The document also states that my sister and her male friend (Neri) can make decisions. I will have him bring you copy of documents." No new DNR orders at this time per . states "I will talk to family first" Hazel Candelario aware of doctor's message.
[2018-10-18] MEDS: CEFAZOLIN SOD 2 GM/D5W 50ML 50 ML IV SCH (13:00)
[2018-10-18] MEDS ORDERED: BUPIVACAINE 0.5%/EPI 30 ML SDV INJ ONE (13:01)
[2018-10-18] MEDS ORDERED: SUGAMMADEX SODIUM 200 MG/2 ML VIAL IV ONE (13:08)
[2018-10-18] MEDS ORDERED: FENTANYL CITRATE/PF 100MCG/2 ML INJ ONE (13:32)
--- NOTE | 2018-10-18 14:00 | NUR ---
Received patient from Procedure. AAOx2 to person place. Oriented to time. abdominal pad noted to perianal area. Small amount of sanguineous drainage noted.
--- NOTE | 2018-10-18 14:40 | NUR ---
Resumed Jevity 50cc/hr with Free water 300 cc q6 hours via right nare NG tube. Denies nausea. No residual noted
[2018-10-18] MEDS ORDERED: PROPOFOL IV EMULSION 10 MG/ML 20 ML VIAL ONE (14:43)
[2018-10-18] MEDS ORDERED: PHENYLEPHRINE HCL 1% 10 MG/ML VIAL ONE (14:43)
[2018-10-18] MEDS ORDERED: CEFAZOLIN SOD 1 GM VIAL ONE (14:43)
[2018-10-18] MEDS ORDERED: SEVOFLURANE INHAL SOLN 250 ML PEN BTL ONE (14:43)
[2018-10-18] MEDS ORDERED: LIDOCAINE HCL 2% LOCAL INJ 5 ML SDV VIAL INJ ONE (14:43)
[2018-10-18] MEDS ORDERED: ONDANSETRON HCL INJ 2MG/ML 2ML 2 MG/ML VIAL ONE (14:43)
[2018-10-18] MEDS: PANTOPRAZOLE SODIUM 40 MG SUSPDR.PKT PO SCH (15:55)
[2018-10-18] MEDS: MULTIVITAMINS 5 ML LIQUID GT SCH (15:55)
[2018-10-18] MEDS: FOLIC ACID 1 MG TAB PO SCH (15:55)
--- NOTE | 2018-10-18 19:10 | NUR ---
Report given to oncoming nurse of patient's status. Resting in bed, side rails upx3, call light within reach, bed alarm on. No s/s of acute distress noted.
--- NOTE | 2018-10-18 19:16 | NUR ---
WALKING ROUNDS PERFORMED, RECEIVED PT LAYING SEMI FOWLERS IN BED, AAOX2, RR EVEN AND NON-LABORED, ON ROOM AIR. NGT TO (R) NARE CONNECTED TO TUBE FEEDING AT 50ML/HR. LEFT PT LAYING SEMI FOWLERS IN BED, BED IN LOW LOCKED POSITION, SIDE RAILS UPX2, CALL LIGHT AND PHONE WITHIN REACH.
--- NOTE | 2018-10-18 20:13 | Operative Report ---
DATE OF PROCEDURE: 10/18/2018 SURGEON: Stew Moran MD PREOPERATIVE DIAGNOSIS: Chronic rectal prolapse. POSTOPERATIVE DIAGNOSIS: Chronic rectal prolapse. PROCEDURE: Reduction of rectal prolapse and placement of perianal suture. DOOR TO DOOR LEAD GENERATION: None. ANESTHESIA: General. INDICATIONS AND FINDINGS: The patient is a 63-year-old female with multiple medical problems, who was admitted to the hospital with signs of sepsis, but also rectal prolapse, which has been present off and on for six months. At Surgery, the patient had a large rectal prolapse that prolapsed about 12 cm with a very dilated anus. At Surgery, the prolapse easily reduced and stayed reduced after placement of the perianal sutures. TECHNIQUE: After adequate general endotracheal anesthesia, the patient in the lithotomy position, the perianal area was prepped and draped in a sterile fashion with Betadine solution. Perianal skin was infiltrated with 0.5% Marcaine with epinephrine. Stab wound incision was made with the rectum reduced was made anterior to the anus and posterior to the anus on the right and left side. Using a #1 Prolene, this was passed from one stab wound incision to the next to encircle the anal area and with the prolapse reduced, the perianal suture was tied over the index finger, so the index finger easily passed transanally, but nothing larger. Second perianal suture was placed once again starting in the left side being passed anterior then to the right and posterior then back to the left and this was also tied so that there were two sutures around the anus. With these in place, while the patient was asleep, the prolapse remained reduced. The each stab wound was then closed with subcuticular suture of 4-0 Vicryl and Dermabond was applied to each wound and a sterile dressing applied. The patient tolerated the procedure well. Estimated blood loss was 10 mL. There were no complications. All counts were correct and the patient was taken to the recovery room in satisfactory condition. Stew Moran MD [facility]/MODL /[id number]
--- NOTE | 2018-10-18 21:49 | NUR ---
MEDICINE Coverage for Dr Cheema Date: 10/18/18 SUBJECTIVE: Talking much more today AO x 1, but converses. She realizes she doesnt recall some answers Pre-operative for surgery today Patient with stable labs roughly REVIEW OF SYSTEMS: Cannot get as she is altered. OBJECTIVE: VITAL SIGNS: Reviewed per EMR GENERAL: In bed, pleasant, NAD HEENT: Normocephalic atraumatic. NECK: Supple. Throat midline. LUNGS: Bilateral air entry, decreased breath sounds, limited CARDIOVASCULAR: S1, S2. No murmurs, rubs, or gallops. ABDOMEN: Soft, nontender. EXTREMITIES: No clubbing, no cyanosis. 1+ edema INTEGUMENT: No rash, no purpura. LABORATORY DATA: k 3.6, hco3 20, cr 1.62, bun 46. 8.2 wbc. hct 28. plt 62. inr 1.84 IMPRESSION: 1. Urinary tract infection. Klebsiella bacteremia. 3. Acute on chronic kidney failure. 5. Thrombocytopenia. 6. Cirrhosis. 7. Hx rheumatoid arthritis. 8. Encephalopathy, hepatic +/- toxic metabolic. 9. Gastroesophageal reflux disease. 10. Chronic pain. 11. Hypertension. 12. Hx depression. 13. Rectal prolapse, symptomatic. Continue fluid intake per renal Antibiotics. Today surgery to reduce the prolapse +/- colostomy Medicines for hepatic encephalopathy. Neurology consult follow up. Await awakening further At minimum the family wants DNR. Will try to clarify advanced directives PRIOR to arrest. Thank you very much, Dr. Cheema for allowing me a chance to participate in care of Ms. Coleman. Please call for questions.
[2018-10-18] MEDS: CITRIC ACID/SODIUM CITRATE 30 ML UDC NG SCH (21:58)
--- NOTE | 2018-10-18 22:20 | NUR ---
DIAPER CHANGE PERFORMED, DRESSING TO RECTUM CHANGED, APPLIED STERILE 4X4 AND ABD PAD.
[2018-10-19] VITALS (7 sets, daily range): BP systolic 133–175; BP diastolic 67–93
[2018-10-19] MEDS: INSULIN LISPRO 100 UNIT/1 ML 3ML VIAL SQ SCH ×4 (00:35→17:53)
--- NOTE | 2018-10-19 05:00 | NUR ---
DIAPER CHANGE PERFORMED, DRESSING TO RECTUM CHANGED, APPLIED STERILE 4X4 AND ABD PAD.
[2018-10-19] MEDS: LACTULOSE SYRUP 20 GM/30 ML UDC PO SCH ×3 (05:35→22:09)
[2018-10-19] MEDS: HYDROCODONE/APAP 5MG-325MG TAB PO PRN ×2 (05:36→12:08)
[2018-10-19 05:52] LABS: BASOPHILS % 0.2 % (0.0-1.0); EOSINOPHILS # (AUTO) 0.1 (0.0-0.4); EOSINOPHILS % 1.4 % (0.0-6.0); HEMOGLOBIN 9.7 g/dL (12.0-16.0); LYMPHOCYTES # (AUTO) 1.3 (1.0-3.2); LYMPHOCYTES % 13.4 % (18.0-39.1); MEAN CORPUSCULAR HEMOGLOBIN 32.9 pg (28-32); MEAN CORPUSCULAR HGB CONC 32.3 g/dL (31-35); MEAN CORPUSCULAR VOLUME 101.7 fL (81-99); MONOCYTES # (AUTO) 0.8 (0.2-0.8); MONOCYTES % 8.5 % (4.4-11.3); NEUTROPHILS # (AUTO) 7.1 (2.1-6.9); NEUTROPHILS % 75.4 % (38.7-80.0); PLATELET COUNT 59 x10e3/uL (140-360); RED BLOOD COUNT 2.95 x10e6/uL (3.6-5.1); RED CELL DISTRIBUTION WIDTH 18.2 % (11.7-14.4)
[2018-10-19 06:11] LABS: ALBUMIN 2.3 g/dL (3.5-5.0); ALBUMIN/GLOBULIN RATIO 0.6 (0.8-2.0); ANION GAP 13.6 mmol/L (8-16); CALCIUM 8.1 mg/dL (8.4-10.2); CREATININE, SERUM 1.57 mg/dL (0.57-1.11); POTASSIUM 3.6 mmol/L (3.5-5.1)
--- NOTE | 2018-10-19 07:31 | Diagnostic Imaging Report ---
EXAMINATION: CHEST SINGLE (PORTABLE) COMPARISON: Chest x-ray 10/16/2018 INDICATION: CHF DISCUSSION: LINES: Enteric tube extends past the diaphragm. Right IJ catheter terminates in the SVC. LUNGS: Decreased patchy opacity within the right middle lobe and right lower lobe. No new consolidation. Pulmonary vascular congestion. No evidence of pulmonary edema. PLEURA: No pleural effusion or pneumothorax. Likely right-sided skinfold. HEART AND MEDIASTINUM: The cardiomediastinal silhouette is unremarkable. BONES AND SOFT TISSUES: No acute osseous abnormality. Extensive degenerative changes of the right shoulder. IMPRESSION: No evidence of pulmonary edema. Decreased patchy opacity within the right middle lobe and right lower lobe, likely atelectasis. Signed by: Dr. Ainsley Persaud MD on 10/19/2018 7:27 AM
[2018-10-19] MEDS: PANTOPRAZOLE SODIUM 40 MG SUSPDR.PKT PO SCH (08:27)
[2018-10-19] MEDS: SPIRONOLACTONE 25 MG TAB PO SCH ×3 (08:27→22:09)
[2018-10-19] MEDS: FOLIC ACID 1 MG TAB PO SCH (08:27)
[2018-10-19] MEDS: RIFAXIMIN 550 MG TABLET PO SCH ×2 (08:27→17:52)
[2018-10-19] MEDS: MULTIVITAMINS 5 ML LIQUID GT SCH (08:27)
[2018-10-19] MEDS: CITRIC ACID/SODIUM CITRATE 30 ML UDC NG SCH ×3 (08:27→22:09)
--- NOTE | 2018-10-19 12:00 | NUR ---
30CC RESIDUAL ON TUBE FEEDINGS RESUMED AT THIS TIME
[2018-10-19] MEDS: CEFAZOLIN SOD 2 GM/D5W 50ML 50 ML IV SCH (12:28)
--- NOTE | 2018-10-19 14:35 | NUR ---
ST Note: Order for bedside swallow eval noted. Attempted to complete eval. Pt sleeping. Person at bedside, who identified herself as "practically family" was adamant that pt not be woken up for eval. Explained that pt could not eat/drink until eval completed. Person at bedside said to let pt sleep and complete eval tomorrow. Will return tomorrow 10/20/18 to complete swallow eval.
[2018-10-19] MEDS ORDERED: DEXTROSE 5% 1,000 ML IV ONE (15:20)
--- NOTE | 2018-10-19 16:00 | NUR ---
d10 given now per md maravilla for pt high sodium level
--- NOTE | 2018-10-19 17:18 | NUR ---
FREE BOLUS OF WATER GIVEN VIA PEG AT THIS TIME
--- NOTE | 2018-10-19 20:02 | NUR ---
MEDICINE Coverage for Dr Cheema Date: 10/19/18 SUBJECTIVE: NGT in place On tube feeds, tolerating at 30/hr awake, talking still weak, in bed REVIEW OF SYSTEMS: Cannot get as she is altered. OBJECTIVE: VITAL SIGNS: Reviewed per EMR GENERAL: In bed, pleasant, NAD HEENT: Normocephalic atraumatic. NECK: Supple. Throat midline. LUNGS: Bilateral air entry, decreased breath sounds, limited CARDIOVASCULAR: S1, S2. No murmurs, rubs, or gallops. ABDOMEN: Soft, nontender. EXTREMITIES: No clubbing, no cyanosis. 1+ edema INTEGUMENT: No rash, no purpura. LABORATORY DATA: 3.6 k, 20 hco3, 46 bun, cr 1.57. wbc 9.34 , hct 30, plt 59. INR 1.84 IMPRESSION: 1. Urinary tract infection. Klebsiella bacteremia. 3. Acute on chronic kidney failure. 5. Thrombocytopenia. 6. Cirrhosis. 7. Hx rheumatoid arthritis. 8. Encephalopathy, hepatic +/- toxic metabolic. 9. Gastroesophageal reflux disease. 10. Chronic pain. 11. Hypertension. 12. Hx depression. 13. Rectal prolapse, symptomatic. Continue fluid intake per renal Antibiotics. NGT feeds continue Speech evaluation for swallow, change to PO diet? Remeron at night Continue therapy, consider return to SNF when better Medicines for hepatic encephalopathy. Neurology consult follow up. Thank you very much, Dr. Cheema for allowing me a chance to participate in care of Ms. Coleman. Please call for questions.
[2018-10-19] MEDS: MIRTAZAPINE 15 MG TAB PO SCH (22:09)
[2018-10-20] VITALS (8 sets, daily range): BP systolic 144–164; BP diastolic 75–89
[2018-10-20] MEDS: INSULIN LISPRO 100 UNIT/1 ML 3ML VIAL SQ SCH ×4 (00:20→18:04)
--- NOTE | 2018-10-20 00:20 | NUR ---
Repositioned.almazan care given.jevity 1.2 running @50 ml\hr.head of bed elevated.tolerates the diet.
--- NOTE | 2018-10-20 03:50 | NUR ---
RESUME TUBE FEED WITH NEW FEEDING TUBE.
[2018-10-20] MEDS: LACTULOSE SYRUP 20 GM/30 ML UDC PO SCH (06:05)
--- NOTE | 2018-10-20 06:59 | NUR ---
Bed side shift report given to the oncoming Rn.stable condition.
--- NOTE | 2018-10-20 08:00 | NUR ---
25CC OF RESIDUAL FROM TUBE FEEDINGS NOTED RESUMED FEEDINGS
[2018-10-20] MEDS: PANTOPRAZOLE SODIUM 40 MG SUSPDR.PKT PO SCH (08:07)
[2018-10-20] MEDS: MULTIVITAMINS 5 ML LIQUID GT SCH (08:07)
[2018-10-20] MEDS: FOLIC ACID 1 MG TAB PO SCH (08:07)
[2018-10-20] MEDS: SPIRONOLACTONE 25 MG TAB PO SCH ×3 (08:07→21:50)
[2018-10-20] MEDS: CITRIC ACID/SODIUM CITRATE 30 ML UDC NG SCH ×3 (08:07→21:50)
[2018-10-20] MEDS: RIFAXIMIN 550 MG TABLET PO SCH ×2 (08:07→18:04)
--- NOTE | 2018-10-20 11:04 | NUR ---
SPOKE WITH MD SANCHEZ REGARDING SPEECH MODIFIED EVAL RECOMMENDING A GI SOFT MECH DIET WITH ROBE TY STATES OK AND TO LEAVE TUBE FEEDINGS UPTIL TOLERATING SNF ORDER BACK TO [facility] ORDERED
--- NOTE | 2018-10-20 11:14 | NUR ---
PT SIGNED CHOICE TO RETURN TO [facility], NOTIFIED REP TO [employer]
[2018-10-20] MEDS: CEFAZOLIN SOD 2 GM/D5W 50ML 50 ML IV SCH (12:19)
--- NOTE | 2018-10-20 14:57 | NUR ---
Wound care consultation regarding denuded skin with occasional partial thickness openings to the lower buttocks and the inner thighs and chandrika area. Pt expresses much tenderness. HX of rectal prolapse. Currently using over the counter barrier products. Recommend venelex ointment BID and prn for incontinent episodes. Call placed to Dr. Ochoa regarding recommendations.
[2018-10-20] MEDS ORDERED: BALSAM PERU/CASTOR OIL 60 GM OINT...G. TP PRN (15:15)
--- NOTE | 2018-10-20 15:49 | NUR ---
Nutrition Follow-up Note RD Recommendation(s) for Physician: The patient meets criteria for MODERATE protein-calorie malnutrition. - Continue TF of Jevity 1.2 with goal rate of 50 ml/hr (to provide 1440 kcal and 67 gm protein) - Water flushes and fluid management per MD - Recommend thiamine supplementation - Rec low sodium diet, diet texture per [employer]OCK [employer]ANGER recommendation - Rec Ensure Enlive TID as medically appropriate Plan of Care: RD following, monitoring for tolerance and adequacy, TF Nutrition reason for involvement: Follow up RD Assessment 10/20: Pt was discussed during AM rounds. Pt was well asleep during my visit. TF was running at goal rate well tolerated with minimal residual. MBS pending. [employer]ER rec mechanical soft diet with gravy. Pending placement to [facility]. Will continue to monitor and follow. 10/17: Pt continues with AMS, pt did not respond to verbal stimuli at time of visit. Per daughter at bedside NGT placed b/c pt was unable to take lactulose 2/2 mentation and TF initiated 4 days ago. Pt discussed during am rounds. TF of Jevity 1.2 held for possible surgery today. Plan for surgery for prolapsed rectum changed to tomorrow, TF to be resumed with goal rate of 45 ml/hr. K low, replaced today. All questions and concerns of pt's daughter addressed at time of visit. Will monitor and continue to follow. 10/12 63yo F, who was admitted for cirrhosis and CA. Visited pt in the room. Pt was a poor historian and unable to finish most of her sentences. Per friend on bedside, pt has been eating poorly at [facility] for unknown amount of time. Her UBW has been around 120lbs. No history of diabetes was reported. Pt denied any chewing or swallowing difficulty. Pt was getting Ensure at the facility. Will continue to monitor and follow. Principal Problems/Diagnoses: Acute kidney injury in a lady with cirrhosis, ascites, portal hypertension, pneumonia, rectal prolapse PMH: cirrhosis, portal hypertension, ascites GI: abdomen large, round, distended, ascitic, flatuse present, LBM 10/20 Skin: occasional partial thickness openings to the lower buttocks and the inner thighs and chandrika area Labs: 10/20: reviewed 10/17: Na 142, K 2.6, BUN 48, Cr 1.69, Gluc 146- on dextrose containing IVF (10/12) BUN 79 H, Creatinine 2.91 H, Glucose 260 H, AST 94 H Meds: bicitra, aldactone, MVI, protonix, folic acid Ht: 62in Wt: 129lb BMI: 23.6kg/m2 IBW: 110lb +/- 10% Malnutrition Evaluation (10/12/2018) The patient meets criteria for MODERATE protein-calorie malnutrition. Energy intake: <50% of estimated energy requirements for >5 days Weight loss: Unknown Fat loss: Moderate hollow around orbital region Muscle loss: Moderate clavicle protrusion Supporting Evidence: Fluid accumulation: Ascites Functional Status: reduced Nutrition Prescription (Diet Order): TF with GI soft (mechanical soft) Estimated Nutritional Needs: Calories: 1375 1650kcal (25-30kcal/kg/d) Weight used: UBW Protein: 55 83g (1-1.5g/kg/d) Weight used: UBW Diet Adequacy: meeting calorie needs, meeting protein needs Diet Education Needs Assessment: Diet education indicated, but patient not appropriate for education at this time. Nutrition Care Level: mod Nutrition Diagnosis: Moderate malnutrition related to inadequate oral intake as evidenced by <50% of estimated energy requirements for >5 days and moderate fat/muscle loss. Goal: Patient will meet 75-100% of estimated needs by follow up Progress: Goal met through TF Interventions: Enteral nutrition- composition, rate, route, Multivitamin/mineral supplement therapy, recommend modifications Monitoring/Evaluation: Total energy intake, Total protein intake, Modified diet, Liquid supplement, Weight change Signed: Vero Gordillo MS, RD, LD
--- NOTE | 2018-10-20 16:31 | NUR ---
REPORT GIVEN TO RUPA IN [facility] 3 PT TRANSFERRED TO ROOM [id number]
--- NOTE | 2018-10-20 16:38 | NUR ---
PATIENT ARRIVED ON THE UNIT AT 1613 PER BED FROM [place] [id number]. PATIENT IS AWAKE AND IN STABLE CONDITION WITH NO S/S OF RESPIRATORY DISTRESS. TELEMETRY APPLIED- SR@90. POZO INTACT AND DRAINING- YELLOW URINE. NG TUBE TO RIGHT NARE IS IN PLACE AND RECEIVING FLUSH AT THIS TIME. RIGHT IJ INTACT AND SALINE LOCKED. FRIEND PRESENT IN ROOM. BED ALARM APPLIED. AIR PUMP APPLIED. CALL LIGHT IS WITHIN REACH, PATIENT INSTRUCTED TO CALL FOR ASSISTANCE NEEDED.
--- NOTE | 2018-10-20 19:30 | NUR ---
PATIENT IS IN STABLE CONDITION WITH NO S/S OF RESPIRATORY DISTRESS. NO PAIN VOICED. TELEMETRY APPLIED. TUBE FEEDING INFUSING. POZO INTACT AND DRAINING. BED ALARM APPLIED. CALL LIGHT IS WITHIN REACH, PATIENT INSTRUCTED TO CALL FOR ASSISTANCE NEEDED. BEDSIDE REPORT GIVEN TO ONCOMING NURSE.
--- NOTE | 2018-10-20 19:55 | NUR ---
PT IS RESTING IN BED WITH FAMILY AT BEDSIDE. RESPIRATION IS EVEN AND UNEVEN LABORED, NO DISTRESS NOTED. BED IN IN THE LOWEST POSITION, LOCKED, BED ALARM ON, AND CALL LIGHT WITHIN REACH. WILL CONTINUE TO MONITOR.
[2018-10-20] MEDS: MIRTAZAPINE 15 MG TAB PO SCH (21:50)
--- NOTE | 2018-10-20 21:50 | NUR ---
MEDICINE Coverage for Dr Cheema Date: 10/20/18 SUBJECTIVE: jevity 1.2, 50 cc/hr water 500 q[address] BM still weak NGT+ REVIEW OF SYSTEMS: Cannot get as she is altered. OBJECTIVE: VITAL SIGNS: Reviewed per EMR GENERAL: In bed, pleasant, NAD. talks HEENT: Normocephalic atraumatic. NECK: Supple. Throat midline. LUNGS: Bilateral air entry, decreased breath sounds, limited CARDIOVASCULAR: S1, S2. No murmurs, rubs, or gallops. ABDOMEN: Soft, nontender. EXTREMITIES: No clubbing, no cyanosis. 1+ edema INTEGUMENT: No rash, no purpura. LABORATORY DATA: per EMR, cr 1.6, k 3.6 IMPRESSION: 1. Urinary tract infection. Klebsiella bacteremia. 3. Acute on chronic kidney failure. 5. Thrombocytopenia. 6. Cirrhosis. 7. Hx rheumatoid arthritis. 8. Encephalopathy, hepatic +/- toxic metabolic. 9. Gastroesophageal reflux disease. 10. Chronic pain. 11. Hypertension. 12. Hx depression. 13. Rectal prolapse, symptomatic. Continue fluid intake per renal Antibiotics continue. NGT feeds continue Speech evaluation ---> start PO diet, consider d/c NGT when dietary intake is sufficient Remeron at night Continue therapy, consider return to SNF if eating adequately Medicines for hepatic encephalopathy. Neurology consult follow up. Temporary downadjustment of lactulose for diarrhea 1/hour Thank you very much, Dr. Cheema for allowing me a chance to participate in care of Ms. Coleman. Please call for questions.
[2018-10-21] VITALS (7 sets, daily range): BP systolic 117–167; BP diastolic 58–84
[2018-10-21] MEDS: INSULIN LISPRO 100 UNIT/1 ML 3ML VIAL SQ SCH ×4 (00:26→18:15)
[2018-10-21 07:01] LABS: ALBUMIN 2.1 g/dL (3.5-5.0); ALBUMIN/GLOBULIN RATIO 0.5 (0.8-2.0); ANION GAP 7.6 mmol/L (8-16); CALCIUM 7.5 mg/dL (8.4-10.2); CREATININE, SERUM 1.16 mg/dL (0.57-1.11); MAGNESIUM 1.9 MG/DL (1.3-2.1); PHOSPHORUS 3.2 MG/DL (2.3-4.7); POTASSIUM 3.6 mmol/L (3.5-5.1)
[2018-10-21] MEDS: SPIRONOLACTONE 25 MG TAB PO SCH ×3 (10:13→20:57)
[2018-10-21] MEDS: MULTIVITAMINS 5 ML LIQUID GT SCH (10:13)
[2018-10-21] MEDS: FOLIC ACID 1 MG TAB PO SCH (10:13)
[2018-10-21] MEDS: CITRIC ACID/SODIUM CITRATE 30 ML UDC NG SCH ×3 (10:13→20:57)
[2018-10-21] MEDS: LACTULOSE SYRUP 20 GM/30 ML UDC PO SCH (10:14)
[2018-10-21] MEDS: RIFAXIMIN 550 MG TABLET PO SCH ×2 (10:14→18:14)
[2018-10-21] MEDS: PANTOPRAZOLE SODIUM 40 MG SUSPDR.PKT PO SCH (10:14)
--- NOTE | 2018-10-21 12:15 | NUR ---
EDUCATED ABOUT IMM, SIGNED, FILED IN CHART, WITH COPY LEFT WITH FAMILY AT BEDSIDE.
--- NOTE | 2018-10-21 12:25 | NUR ---
NOTIFIED MEDICAL [facility] WILL DC TUBE TODAY PT WILL NOT NEED FEEDINGS.
--- NOTE | 2018-10-21 12:51 | NUR ---
Pt tolerated food well for breakfast notified Dr. Wood and received orders to discontinue NGtube. NGtube removed and well tolerated per pt.
[2018-10-21] MEDS ORDERED: TYLENOL WITH C1 EACH PO (13:07)
[2018-10-21] MEDS: CEFAZOLIN SOD 2 GM/D5W 50ML 50 ML IV SCH (13:26)
[2018-10-21] MEDS: ACETAMINOPHEN/CODEINE 300MG - 30MG TAB PO PRN (18:16)
--- NOTE | 2018-10-21 19:12 | NUR ---
Report received from GAVINO Britt. Pt sleeping in bed at this time, pt appears to be in no distress at this time. Respirations are even and regular. Call light is in reach of pt. Will continue to monitor.
--- NOTE | 2018-10-21 20:38 | NUR ---
MEDICINE Coverage for Dr Cheema Date: 10/21/18 SUBJECTIVE: 1.8 L in, 0.7 L out recorded RA fio2 still talking ate well this am REVIEW OF SYSTEMS: no headaches, no rash OBJECTIVE: VITAL SIGNS: Reviewed per EMR GENERAL: In bed, pleasant, NAD. talks HEENT: Normocephalic atraumatic. NECK: Supple. Throat midline. LUNGS: Bilateral air entry, decreased breath sounds, limited CARDIOVASCULAR: S1, S2. No murmurs, rubs, or gallops. ABDOMEN: Soft, nontender. EXTREMITIES: No clubbing, no cyanosis. 1+ edema INTEGUMENT: No rash, no purpura. LABORATORY DATA: per emr IMPRESSION: 1. Urinary tract infection. Klebsiella bacteremia. 3. Acute on chronic kidney failure. 5. Thrombocytopenia. 6. Cirrhosis. 7. Hx rheumatoid arthritis. 8. Encephalopathy, hepatic +/- toxic metabolic. 9. Gastroesophageal reflux disease. 10. Chronic pain. 11. Hypertension. 12. Hx depression. 13. Rectal prolapse, symptomatic. Continue fluid intake per renal Antibiotics continue. NGT dc continue PO diet, reasonable dietary intake Remeron at night Medicines for hepatic encephalopathy. Neurology consult follow up. Temporary downadjustment of lactulose for diarrhea 1/hour return to SNF when better, CM consult as she is gettting near Thank you very much, Dr. Cheema for allowing me a chance to participate in care of Ms. Coleman. Please call for questions.
[2018-10-21] MEDS: MIRTAZAPINE 15 MG TAB PO SCH (20:57)
[2018-10-22] VITALS (7 sets, daily range): BP systolic 143–163; BP diastolic 72–93
[2018-10-22] MEDS: INSULIN LISPRO 100 UNIT/1 ML 3ML VIAL SQ SCH ×4 (05:58→17:20)
[2018-10-22] MEDS: CITRIC ACID/SODIUM CITRATE 30 ML UDC NG SCH ×3 (09:31→21:00)
[2018-10-22] MEDS: RIFAXIMIN 550 MG TABLET PO SCH (09:32)
[2018-10-22] MEDS: PANTOPRAZOLE SODIUM 40 MG SUSPDR.PKT PO SCH (09:32)
[2018-10-22] MEDS: LACTULOSE SYRUP 20 GM/30 ML UDC PO SCH (09:32)
[2018-10-22] MEDS: SPIRONOLACTONE 25 MG TAB PO SCH ×3 (09:32→21:00)
[2018-10-22] MEDS: FOLIC ACID 1 MG TAB PO SCH (09:32)
[2018-10-22] MEDS: ACETAMINOPHEN/CODEINE 300MG - 30MG TAB PO PRN ×3 (09:45→17:13)
[2018-10-22] MEDS: MULTIVITAMINS/MINERALS TAB PO SCH (10:02)
[2018-10-22] MEDS: CEFAZOLIN SOD 2 GM/D5W 50ML 50 ML IV SCH (12:33)
--- NOTE | 2018-10-22 15:13 | NUR ---
MEDICINE Coverage for Dr Cheema Date: 10/22/18 SUBJECTIVE: RA fio2 off tube feeds patient eating well stable mentation CVC, almazan+ REVIEW OF SYSTEMS: no headaches, no rash OBJECTIVE: VITAL SIGNS: Reviewed per EMR GENERAL: In bed, pleasant, NAD. talks HEENT: Normocephalic atraumatic. NECK: Supple. Throat midline. LUNGS: Bilateral air entry, decreased breath sounds, limited CARDIOVASCULAR: S1, S2. No murmurs, rubs, or gallops. ABDOMEN: Soft, nontender. EXTREMITIES: No clubbing, no cyanosis. 1+ edema INTEGUMENT: No rash, no purpura. LABORATORY DATA: per emr IMPRESSION: 1. Urinary tract infection. Klebsiella bacteremia. 3. Acute on chronic kidney failure. 5. Thrombocytopenia. 6. Cirrhosis. 7. Hx rheumatoid arthritis. 8. Encephalopathy, hepatic +/- toxic metabolic. 9. Gastroesophageal reflux disease. 10. Chronic pain. 11. Hypertension. 12. Hx depression. 13. Rectal prolapse, symptomatic. Continue fluid intake per renal Antibiotics continue. continue PO diet Remeron at night Medicines for hepatic encephalopathy. Neurology consult follow up. Temporary down adjustment of lactulose for diarrhea 1/hour. Try Questran. Increase lactulose soon d/c CVC, get peripheral IV almazan in for skin care return to SNF when better, CM consult as she is gettting near Thank you very much, Dr. Cheema for allowing me a chance to participate in care of Ms. Coleman. Please call for questions.
[2018-10-22] MEDS: CHOLESTYRAMINE 4 GM PACKET PO SCH ×2 (17:20→21:00)
--- NOTE | 2018-10-22 18:55 | Progress Note ---
DATE: SUBJECTIVE: Ms. Coleman was currently comfortable with no complaints. Review of system nothing new. The patient had reduction of rectal prolapse and placement of perineal suture on October 18. REVIEW OF SYSTEMS: Otherwise unremarkable. LABORATORY DATA: Reviewed. White count 9.3 and hemoglobin 9.7. PHYSICAL EXAMINATION: GENERAL: Alert and confused. VITAL SIGNS: Stable. Afebrile. HEENT: She is not icteric. NECK: Supple. CHEST: Clear. HEART: S1 and S2. No murmurs. ABDOMEN: Soft. EXTREMITIES: No edema. IMPRESSION: 1. Sepsis on admission, resolved. 2. Liver cirrhosis from rectal prolapse. 3. Bacteremia, Klebsiella pneumonia, pansensitive to finish 14 days of antibiotic, October 12 to finish 14 days till October 27. Stable from Infectious Disease point of view. Encephalopathy, multifactorial. Thank you for asking me to see this patient. MD SRI Gamboa/MARCOS /[id number]
--- NOTE | 2018-10-22 19:05 | NUR ---
BS report completed with morning nurse. Pt alert to name. Lying in bed HOB 30 degrees. Denies pain or discomfort at this time. Bed low and locked. Call bailey within reach. Bed alarm on. Will continue to monitor.
[2018-10-22] MEDS: MIRTAZAPINE 15 MG TAB PO SCH (21:00)
[2018-10-23] VITALS (8 sets, daily range): BP systolic 126–162; BP diastolic 73–86
[2018-10-23] MEDS: INSULIN LISPRO 100 UNIT/1 ML 3ML VIAL SQ SCH ×5 (06:00→23:59)
--- NOTE | 2018-10-23 06:50 | NUR ---
Report given to morning nurse. Pt lying in bed quiet with eyes closed, RR even and unlabored. no s/s pain at this time.
[2018-10-23] MEDS: ACETAMINOPHEN/CODEINE 300MG - 30MG TAB PO PRN ×2 (08:40→18:54)
[2018-10-23] MEDS: SPIRONOLACTONE 25 MG TAB PO SCH ×3 (08:41→20:47)
[2018-10-23] MEDS: PANTOPRAZOLE SODIUM 40 MG SUSPDR.PKT PO SCH (08:41)
[2018-10-23] MEDS: CHOLESTYRAMINE 4 GM PACKET PO SCH ×3 (08:41→20:47)
[2018-10-23] MEDS: CITRIC ACID/SODIUM CITRATE 30 ML UDC NG SCH ×3 (08:41→20:47)
[2018-10-23] MEDS: MULTIVITAMINS/MINERALS TAB PO SCH (08:41)
[2018-10-23] MEDS: FOLIC ACID 1 MG TAB PO SCH (08:41)
[2018-10-23] MEDS: LACTULOSE SYRUP 20 GM/30 ML UDC PO SCH (08:41)
[2018-10-23] MEDS: CEFAZOLIN SOD 2 GM/D5W 50ML 50 ML IV SCH (14:21)
--- NOTE | 2018-10-23 16:22 | NUR ---
MEDICINE Coverage for Dr Cheema Date: 10/23/18 SUBJECTIVE: patient with stable mentation more energy eating orally REVIEW OF SYSTEMS: no headaches, no rash OBJECTIVE: VITAL SIGNS: Reviewed per EMR GENERAL: In bed, pleasant, NAD. talks HEENT: Normocephalic atraumatic. NECK: Supple. Throat midline. LUNGS: Bilateral air entry, decreased breath sounds, limited CARDIOVASCULAR: S1, S2. No murmurs, rubs, or gallops. ABDOMEN: Soft, nontender. EXTREMITIES: No clubbing, no cyanosis. mostly resolved edema INTEGUMENT: No rash, no purpura. LABORATORY DATA: per emr IMPRESSION: 1. Urinary tract infection. Klebsiella bacteremia. 3. Acute on chronic kidney failure. 5. Thrombocytopenia. 6. Cirrhosis. 7. Hx rheumatoid arthritis. 8. Encephalopathy, hepatic +/- toxic metabolic. 9. Gastroesophageal reflux disease. 10. Chronic pain. 11. Hypertension. 12. Hx depression. 13. Rectal prolapse, symptomatic. Antibiotics continue. continue PO diet Remeron at night Medicines for hepatic encephalopathy. Neurology consult follow up. Temporary down adjustment of lactulose for diarrhea 1/hour. continue Questran. Increase lactulose soon d/c CVC if able, get peripheral IV almazan in for skin care return to SNF when better, possibly tomorrow Thank you very much, Dr. Cheema for allowing me a chance to participate in care of Ms. Coleman. Please call for questions.
--- NOTE | 2018-10-23 18:29 | Progress Note ---
DATE: SUBJECTIVE: Ms. Coleman is doing well today. There is no new complaint. REVIEW OF SYSTEMS: HEENT: Negative. PULMONARY: Negative. CARDIAC: Negative. GENERAL: She seems more alert. LABORATORY DATA: Reviewed. PHYSICAL EXAMINATION: GENERAL: She is currently alert, oriented, does not seem to be in acute distress. VITAL STABLE: Currently, afebrile. HEENT: She is not icteric. NECK: Supple. CHEST: Clear. HEART: S1 and S2. No murmurs. ABDOMEN: Soft. IMPRESSION: 1. Sepsis on admission, resolved. 2. Bacteremia, Klebsiella pneumonia, to continue 14 days of antibiotic and change to oral. Last day will be October 27. Stable otherwise per Infectious Disease. Discharge planning per others. MD SRI Gamboa/MARCOS /[id number]
--- NOTE | 2018-10-23 19:00 | NUR ---
Report received from morning nurse. Pt alert to name. Sitting bed HOB 45 degrees. c/o rectal pain, unrelieved by Tylenol#3. BMx1 previous shift, mild anal bleeding. Call bailey within reach. Will continue to monitor.
--- NOTE | 2018-10-23 19:40 | NUR ---
Spoke with Dr. Ochoa regarding patient's concern regarding pain management. Dr. Ochoa ordered hydrocortisone cream and suppository prn pain.
[2018-10-23] MEDS ORDERED: HYDROCORTISONE ACETATE 25 MG/SUPP.RECT SUPP RC PRN (19:45)
[2018-10-23] MEDS ORDERED: HYDROCORTISONE .5% 30 GM TUBE TOP PRN (19:45)
[2018-10-23] MEDS: MIRTAZAPINE 15 MG TAB PO SCH (20:48)
[2018-10-24] VITALS (7 sets, daily range): BP systolic 135–155; BP diastolic 75–89
[2018-10-24] MEDS: INSULIN LISPRO 100 UNIT/1 ML 3ML VIAL SQ SCH ×2 (06:00→12:00)
--- NOTE | 2018-10-24 07:02 | NUR ---
RECEIVED PATIENT RESTING IN BED. NO ACUTE DISTRESS NOTED. CALL LIGHT WITHIN REACH. BED IN THE LOWEST POSITION. BED ALARM ON.
[2018-10-24] MEDS: PANTOPRAZOLE SODIUM 40 MG SUSPDR.PKT PO SCH (09:08)
[2018-10-24] MEDS: CITRIC ACID/SODIUM CITRATE 30 ML UDC NG SCH ×2 (09:08→15:46)
[2018-10-24] MEDS: MULTIVITAMINS/MINERALS TAB PO SCH (09:08)
[2018-10-24] MEDS: LACTULOSE SYRUP 20 GM/30 ML UDC PO SCH (09:08)
[2018-10-24] MEDS: SPIRONOLACTONE 25 MG TAB PO SCH ×2 (09:08→15:46)
[2018-10-24] MEDS: FOLIC ACID 1 MG TAB PO SCH (09:08)
[2018-10-24] MEDS: CHOLESTYRAMINE 4 GM PACKET PO SCH ×2 (09:08→15:46)
--- NOTE | 2018-10-24 09:30 | NUR ---
CALL RECEIVED FROM JEFF Collado [facility] REQUESTING UPDATED PT NOTE W/I THE LAST 48HRS. NOTED PT REFUSED PT ON 10/22. NOTIFIED PT UPDATED NOTE WAS NEEDED. WILL FAX NOTE WHEN AVAILABLE.
[2018-10-24] MEDS: CEFAZOLIN SOD 2 GM/D5W 50ML 50 ML IV SCH (12:00)
--- NOTE | 2018-10-24 12:42 | Diagnostic Imaging Report ---
PROCEDURE: X-RAY MODIFIED BARIUM SWALLOW COMPARISON: None. INDICATION: Aspiration Radiation Details: Fluoroscopy time: 1.1 minutes Cumulative dose: 3.06 mGy DISCUSSION: Fluoroscopic examination was performed in conjunction with speech pathology during swallowing a variety of thin and thick liquid consistencies. Provided images demonstrate no laryngeal penetration or aspiration. CONCLUSION: Modified barium swallow demonstrating no laryngeal penetration or aspiration. Please refer to the speech pathology report for further details. Signed by: Naveed Maki MD on 10/24/2018 12:39 PM
[2018-10-24] MEDS: ACETAMINOPHEN/CODEINE 300MG - 30MG TAB PO PRN (13:00)
--- NOTE | 2018-10-24 15:35 | NUR ---
Nutrition Follow-up Note RD Recommendation(s) for Physician: The patient meets criteria for MODERATE protein-calorie malnutrition. - Recommend adjust TF of Jevity 1.2 to cyclic TF x 12 hrs at 50 ml/hr (7PM- 7AM) goal rate of 50 ml/hr (to provide 770 kcal and 34 gm protein) to promote meal intake during the day - Water flushes and fluid management per MD - Recommend thiamine supplementation - Continue current diet per FILM TESTS CHECKER Plan of Care: RD following, monitoring for tolerance and adequacy, TF Nutrition reason for involvement: Follow up RD Assessment 10/24: Pt discussed during am rounds, pending [facility]. Pt currently on TF and diet, eating 25-100% of meals per chart. RN denies pt having any GI distress. Pt sleeping at time of visit. Chart reviewed. Will monitor and continue to follow. 10/20: Pt was discussed during AM rounds. Pt was well asleep during my visit. TF was running at goal rate well tolerated with minimal residual. MBS pending. FILM TESTS CHECKER rec mechanical soft diet with gravy. Pending placement to [facility]. Will continue to monitor and follow. 10/17: Pt continues with AMS, pt did not respond to verbal stimuli at time of visit. Per daughter at bedside NGT placed b/c pt was unable to take lactulose 2/2 mentation and TF initiated 4 days ago. Pt discussed during am rounds. TF of Jevity 1.2 held for possible surgery today. Plan for surgery for prolapsed rectum changed to tomorrow, TF to be resumed with goal rate of 45 ml/hr. K low, replaced today. All questions and concerns of pt's daughter addressed at time of visit. Will monitor and continue to follow. 10/12 63yo F, who was admitted for cirrhosis and CA. Visited pt in the room. Pt was a poor historian and unable to finish most of her sentences. Per friend on bedside, pt has been eating poorly at [facility] for unknown amount of time. Her UBW has been around 120lbs. No history of diabetes was reported. Pt denied any chewing or swallowing difficulty. Pt was getting Ensure at the facility. Will continue to monitor and follow. Principal Problems/Diagnoses: Acute kidney injury in a lady with cirrhosis, ascites, portal hypertension, pneumonia, rectal prolapse PMH: cirrhosis, portal hypertension, ascites GI:LBM 9/15 Skin: occasional partial thickness openings to the lower buttocks and the inner thighs and chandrika area Labs: 10/21: Gluc 134 10/20: reviewed 10/17: Na 142, K 2.6, BUN 48, Cr 1.69, Gluc 146- on dextrose containing IVF (10/12) BUN 79 H, Creatinine 2.91 H, Glucose 260 H, AST 94 H Meds: MVI, protonix, folic acid Ht: 62in Wt: 129lb BMI: 23.6kg/m2 IBW: 110lb +/- 10% Malnutrition Evaluation (10/12/2018) The patient meets criteria for MODERATE protein-calorie malnutrition. Energy intake: <50% of estimated energy requirements for >5 days Weight loss: Unknown Fat loss: Moderate hollow around orbital region Muscle loss: Moderate clavicle protrusion Supporting Evidence: Fluid accumulation: Ascites Functional Status: reduced Nutrition Prescription (Diet Order): TF with GI soft (mechanical soft) Estimated Nutritional Needs: Calories: 1375 1650kcal (25-30kcal/kg/d) Weight used: UBW Protein: 55 83g (1-1.5g/kg/d) Weight used: UBW Diet Adequacy: meeting calorie needs, meeting protein needs Diet Education Needs Assessment: Diet education indicated, but patient not appropriate for education at this time. Nutrition Care Level: mod Nutrition Diagnosis: Moderate malnutrition related to inadequate oral intake as evidenced by <50% of estimated energy requirements for >5 days and moderate fat/muscle loss. Goal: Patient will meet 75-100% of estimated needs by follow up Progress: Goal met through TF Interventions: Enteral nutrition- composition, rate, route, Multivitamin/mineral supplement therapy, recommend modifications Monitoring/Evaluation: Total energy intake, Total protein intake, Modified diet, Liquid supplement, Weight change Signed: Dorene Townsend RD, LD, CNSC
[2018-10-24] MEDS ORDERED: LIDOCAINE HCL 2% 30 ML TUBE TOP PRN (16:15)
--- NOTE | 2018-10-24 16:44 | NUR ---
IMM LETTER EXPLAINED TO PT. PT VERBALIZED UNDERSTANDING. IMM LETTER SIGNED. COPY TO PT AND COPY TO CHART.
--- NOTE | 2018-10-24 16:45 | NUR ---
[facility] FACILITY DISCHARGE INFORMATION PATIENT HAS BEEN ACCEPTED TO: NAME: [facility] ADDRESS: [address] [place] [address],[place] [id number] ACCEPTING MD: DR. DAAM ROOM: 301 NURSE CALL REPORT TO: [phone] IMM SIGNED AND OBTAINED (if applicable): IMM SIGNED AND COPY TO CHART AND COPY TO PT THE FOLLOWING DOCUMENTS MUST ACCOMPANY PATIENT FOR TRANSFER: COPIED CHART: [employer] RTF: ANGEL LUIS MENA [id number] DNR: N/A
--- NOTE | 2018-10-24 18:18 | NUR ---
RIGHT IJ DCD WITH TIP INTACT, PRESSURE APPLIED TO SITE, NO BLEEDING NOTED. LEFT EJ PIV 20G STARTED.
--- NOTE | 2018-10-24 18:22 | NUR ---
CALLED REPORT TO [facility] TO NURSE MOHSEN LVN AT THIS TIME.
--- NOTE | 2018-10-24 19:12 | NUR ---
REPORT GIVEN TO ONCOMING NURSE. PATIENT IS RESTING IN BED. NO S/S OF PAIN NOTED. CALL LIGHT WITHIN REACH. BED IN THE LOWEST POSITION. BED ALARM ON. NOTIFIED ONCOMING NURSE THAT PATIENT IS TO BE TRANSFERRED TO [facility] AND REPORT HAS BEEN CALLED IN AND AMBULANCE HAS BEEN CALLED.
--- NOTE | 2018-10-24 20:18 | NUR ---
RECEIVED PT IN BED NO ACUTE DISTRESS NOTED .PT IS WAITING TO THE AMBULANCE TO TAKE TO THE [facility] .CALL LIGHT WITH IN REACH .CONTINUE TO MONITOR
--- NOTE | 2018-10-24 21:00 | NUR ---
PT IS DISCHARGED TO [facility] .NO ACUTE DISTRESS NOTED .AMBULANCE HAS TAKEN TOT THE PT
--- NOTE | 2018-10-24 22:57 | NUR ---
discharge summary [id number]
--- NOTE | 2018-10-25 17:12 | Discharge Summary ---
PRIMARY CARE DOCTOR: Dr. Earl Weaver. This is hospital coverage for Dr. Weaver. ADMISSION DIAGNOSES: 1. Urinary tract infection. 2. Severe sepsis with multiorgan failure. DISCHARGE DIAGNOSES: Includes: 1. Klebsiella bacteremia. 2. Urinary tract infection. 3. Temeq-ip-bnalbwl kidney failure, improved. 4. Encephalopathy, hepatic plus toxic metabolic, improved. OTHER DIAGNOSES: Includes: 1. Symptomatic rectal prolapse. 2. Thrombocytopenia. 3. Cirrhosis. 4. History of rheumatoid arthritis. 5. Gastroesophageal reflux disease. 6. Chronic pain. 7. Hypertension. 8. History of depression. HOSPITAL COURSE: Ms. Coleman was admitted due to encephalopathy predominantly. Urinary tract infection diagnosed in the emergency room. She received broad antibiotics. Blood cultures later grew Klebsiella pneumoniae x2. Blood cultures later cleared on antibiotics. Slowly, kidney function improved, for which the original creatinine was 2.9 and was 1.2 on discharge. Encephalopathy was much improved. The patient was comatose and eventually improved to being very talkative. The patient with coagulopathy with INR of 1.8 while hospitalized and was debility there, thought hepatic and possibly some DIC. The patient had interim NG tube feeding, but as she awoke better, she was able to eat a good amount orally. She did go for operative procedure by Dr. Stew Moran due to a high symptomatic component of the chronic rectal prolapse. He did reduce rectal prolapse operation and placement of perianal suture. The patient temporarily had lactulose decreased to diarrhea, but was expected to go back up on lactulose as diarrhea improved. Eventually, she was allowed for discharge and outpatient followup. She was to go back to [facility] care. The patient had an interim MBS showing no penetration or aspiration and she was allowed to eat appropriate diet. DISPOSITION ON DISCHARGE: [facility], Dr. Earl Weaver attending. MEDICATION ON DISCHARGE: Per medication record. DIET: Soft diet. ACTIVITY AT DISCHARGE: Per Physical therapy, tolerated and safe. Greater than 30 minutes in direct care and coordination on this date. MD HOLLY West/MARCOS /[id number]
== END 2018-10-24 21:40 | DRG 871 ==
LOC: ER 21:04 → ERHOLD 10-12 00:20 → MED/SURG 10-12 02:04 → MED/SURG3 10-20 16:36
PROVIDERS: ADMIT Internal Medicine Critical Care Medicine; ATTEND Internal Medicine Critical Care Medicine
PROC: 02HV33Z Insertion of Infusion Device into Superior Vena Cava, Percutaneous Approach (ICD-10-PCS; 2018-10-14)
PROC: 30243K1 Transfusion of Nonautologous Frozen Plasma into Central Vein, Percutaneous Approach (ICD-10-PCS; 2018-10-14)
PROC: 30243R1 Transfusion of Nonautologous Platelets into Central Vein, Percutaneous Approach (ICD-10-PCS; 2018-10-18)
PROC: 0DSPXZZ Reposition Rectum, External Approach (ICD-10-PCS; principal; 2018-10-18 12:30)
DX: A41.9 Sepsis, unspecified organism (principal); G92 Toxic encephalopathy; J18.9 Pneumonia, unspecified organism; N39.0 Urinary tract infection, site not specified; N17.9 Acute kidney failure, unspecified; E87.2 Acidosis; K74.60 Unspecified cirrhosis of liver; K72.90 Hepatic failure, unspecified without coma; K62.3 Rectal prolapse; R65.20 Severe sepsis without septic shock
CPT/HCPCS: 36415; 36556; 36600; 70450; 71045; 74018; 74176; 74230; 74470; 76770; 76937; 77001; 80053; 81001; 82140; 82550; 82553; 82570; 82607; 82746; 82805; 82948; 83605; 83735; 83880; 83921; 84100; 84132; 84300; 84425; 84443; 84484; 85025; 85610; 85730; 86335; 86592; 86803; 86850; 86900; 87040; 87071; 87086; 87186; 87205; 87390; 93005; 96361; 97139; 99284; C1751; G0433; G0435; J0456; J0690; J0692; J0696; J1940; J1956; J2001; J2370; J2405; J3010; J3411; J3430; J3475; J3480; J7030; J7050; J7070; P9017; P9034; P9045

== ENCOUNTER 2018-11-01 11:39 | Emergency (ER) | payer MEDICARE ==
[~2018-11-01] VITALS: Ht 157.5 cm; Wt 58.5 kg
[~2018-11-01 11:39] MED LIST: FOLIC ACID1 MG PO; KLOR-CON M2020 MEQ PO; LACTULOSE20 GM/30 M PO; LOSARTAN POTASS50 MG PO; MULTIVITAMINS1 EAC7 PO; NORCO 5-325 TA1 EACH PO; OXYCODONE-ACET1 EAC1 PO; PHOS-NAK PACKE1 EACH PO; PROTONIX40 MG PO; SPIRONOLACTONE25 MG PO; THIAMINE PO; TYLENOL WITH C1 EACH PO; XIFAXAN550 MG PO; ZOLOFT50 MG PO
--- OUTSIDE RECORDS SUMMARY | 2018-11-01 11:42 | XMS REPORT | Continuity of Care Document ---
Author Author [employer] Organization [employer] Address Unknown Phone Unavailable Care Team Providers Care Nursing Services Manager Name Role Phone Veset Information [employer] Unavailable Unavailable Problems Problem Status Onset Date Classification Date Reported Comments Source Derangement of meniscus, not elsewhere classified Active Problem 02/15/2014 Jose R Ruiz Osteoarthrosis, lower leg Active Problem 02/15/2014 Jose R Ruiz Rheumatoid arthritis Active Problem 02/15/2014 Jose R Ruiz Hepatitis C carrier Active Problem 02/15/2014 Jose R Ruiz Unspecified drug dependence Active Diagnosis 08/18/2013 Jose R uRiz Medications Medication Details Route Status Patient Instructions [...] Date Status Source Rogelio Ruiz MD f/u [id number] 06/15/2013 06/15/2013 Jose R Ruiz MD f/u [id number] 06/15/2013 06/15/2013 Jose R Ruiz MD Follow up [id number] 02/09/2014 02/09/2014 Jose R Ruiz Procedures No [...]
--- NOTE | 2018-11-01 13:00 | NUR ---
MULTIPLE ATTEMPTS TO OBTAIN PIV HAVE BEEN MADE, UNABLE TO OBTAIN BUT STICK WAS MADE TO SEND SPECIMEN TO LAB.
[2018-11-01 13:24] LABS: BASOPHILS % 0.2 % (0.0-1.0); EOSINOPHILS # (AUTO) 0.1 (0.0-0.4); EOSINOPHILS % 1.4 % (0.0-6.0); HEMATOCRIT 29.8 % (34.2-44.1); HEMOGLOBIN 9.8 g/dL (12.0-16.0); LYMPHOCYTES # (AUTO) 1.2 (1.0-3.2); LYMPHOCYTES % 12.2 % (18.0-39.1); MEAN CORPUSCULAR HEMOGLOBIN 33.1 pg (28-32); MEAN CORPUSCULAR HGB CONC 32.9 g/dL (31-35); MEAN CORPUSCULAR VOLUME 100.7 fL (81-99); MONOCYTES # (AUTO) 0.8 (0.2-0.8); MONOCYTES % 7.9 % (4.4-11.3); NEUTROPHILS # (AUTO) 7.4 (2.1-6.9); NEUTROPHILS % 77.7 % (38.7-80.0); PLATELET COUNT 75 x10e3/uL (140-360); RED BLOOD COUNT 2.96 x10e6/uL (3.6-5.1); RED CELL DISTRIBUTION WIDTH 18.4 % (11.7-14.4)
[2018-11-01 13:36] LABS: INR 1.49; PROTHROMBIN TIME 18.6 seconds (11.9-14.5)
[2018-11-01 13:48] LABS: ALBUMIN 1.9 g/dL (3.5-5.0); ALBUMIN/GLOBULIN RATIO 0.4 (0.8-2.0); ALKALINE PHOSPHATASE 154 IU/L (40-150); ANION GAP 12.4 mmol/L (8-16); BLOOD UREA NITROGEN 39 mg/dL (7-26); BUN/CREATININE RATIO 25 (6-25); CALCIUM 8.1 mg/dL (8.4-10.2); CARBON DIOXIDE 17 mmol/L (22-29); CHLORIDE 109 mmol/L (98-107); CREATININE, SERUM 1.55 mg/dL (0.57-1.11); EST GLOMERULAR FILTRATION RATE 34 ML/MIN (60-); GLUCOSE 80 mg/dL (74-118); POTASSIUM 4.4 mmol/L (3.5-5.1); SODIUM 134 mmol/L (136-145)
[2018-11-01 13:51] LABS: ALANINE AMINOTRANSFERASE < 6 IU/L (0-55)
--- NOTE | 2018-11-01 14:14 | NUR ---
DR. URIBE AT BEDSIDE EXPLAINING PLAN OF CARE TO PT, MADE AWARE OF RISKS, BENEFITS, AND ALTERNATIVE TREATMENTS TO PARACENTESIS.
--- NOTE | 2018-11-01 14:25 | NUR ---
WITNESSED CONSENT FORM SIGNATURES, PLACED ON PT CHART.
--- NOTE | 2018-11-01 15:15 | NUR ---
DR. URIBE AT BEDSIDE FOR PARACENTESIS AT THIS TIME.
--- NOTE | 2018-11-01 15:38 | NUR ---
DR. URIBE REPORTS THAT 3 L WERE DRAINED FROM PT ABD, PT TOLERATED PROCEDURE WELL, WILL SEND SPECIMENS TO LAB, INTENT TO D/C ELABORATED WITH PT, VERABLIZED UNDERSTANDING.
--- NOTE | 2018-11-01 15:48 | NUR ---
CALLED [facility] FOR TRANSPORT TO [facility], ETA 1 HR.
[2018-11-01 16:32] VITALS: BP 167/82
--- NOTE | 2018-11-01 16:52 | NUR ---
[facility] AT BEDSIDE TO TRANSPORT PT TO [facility], REPORT GIVEN TO EMT.
[2018-11-01 19:21] LABS: BODY FLUID APPEARANCE SL.CLOUDY; BODY FLUID COLOR YELLOW; BODY FLUID TYPE PERITONEAL; RBC,BODY FLUID 26 cells/uL; WBC,BODY FLUID 39 cells/uL
[2018-11-01 20:06] LABS: LYMPHOCYTES,BODY FLUID 22 %; MONO/MACROPHG,BODY FLUID 49 %; NEUTROPHILS,BODY FLUID 27 %; OTHER CELLS,BODY FLUID 2 %
== END 2018-11-01 16:53 ==
LOC: ER 11:39
DX: R10.84 Generalized abdominal pain (principal); K70.31 Alcoholic cirrhosis of liver with ascites; R14.0 Abdominal distension (gaseous)
CPT/HCPCS: 36415; 80053; 82140; 85025; 85610; 87070; 87205; 89051; 99283

== ENCOUNTER 2018-11-09 00:11 | Emergency (ER) | payer MEDICARE ==
[~2018-11-09] VITALS: Ht 157.5 cm; Wt 58.5 kg
--- NOTE | 2018-11-09 01:46 | Diagnostic Imaging Report ---
EXAMINATION: Head CT without contrast. HISTORY:Fall. COMPARISON:CT brain from 10/14/2018. TECHNIQUE: Multidetector axial images were obtained from the foramen magnum to the vertex without contrast. The images were reconstructed using brain and bone algorithms. Thin section brain images were reformatted into coronal and sagittal planes. Dose modulation, iterative reconstruction, and/or weight based adjustment of the mA/kV was utilized to reduce the radiation dose to as low as reasonably achievable. Intravenous contrast: None IMAGE QUALITY: Suboptimal evaluation due to motion artifacts particularly at the level of skull base and posterior fossa. FINDINGS: Skull/scalp: No lytic or blastic. lesions. No surgical changes. Parenchyma: Nonspecific bilateral frontoparietal patchy white matter hypodensity are likely related to small vessel ischemic changes. No acute hemorrhage, mass or acute major vascular territorial infarct. Arteries: No density suggestive of thrombosis. Dural sinuses: No abnormal density suggestive of thrombosis. Ventricles: No hydrocephalus or displacement. Extra-axial spaces: No abnormal density. Brain volume: Mild generalized cerebral volume loss. Craniocervical junction: No mass, Chiari malformation, or basilar invagination. Sella: No mass. Paranasal/mastoid sinuses: Imaged portions unremarkable. IMPRESSION: No acute intracranial abnormality. No change since CT head from 10/14/2018. Chronic findings: 1. Mild generalized cerebral volume loss. 2. Mild supratentorial white matter microvascular ischemic changes. Signed by: Dr. Shazia Fuentes M.D. on 11/09/2018 1:43 AM
--- NOTE | 2018-11-09 01:51 | Diagnostic Imaging Report ---
History: Fall. Comparison studies: None Technique: Axial images were obtained through the cervical region.. Coronal and sagittal images reconstructed from the axial data. Dose modulation, iterative reconstruction, and/or weight based adjustment of the mA/kV was utilized to reduce the radiation dose to as low as reasonably achievable. Intravenous contrast: None Findings: Fractures: None. Soft tissue injuries: None. Atlantoaxial articulation: Intact. Alignment: Normal lordosis. No scoliosis. Cervicomedullary junction: No abnormalities. The foramen magnum is patent. Soft tissues: No abnormalities. Vertebrae: No fractures, infection or neoplasm. Degenerative changes: C3-C4: Posterior disc osteophyte complex results in mild canal stenosis. Mild right foraminal stenosis due to uncovertebral arthrosis. C4-C5: Severe degenerative disc disease. Posterior disc osteophyte complex results in mild canal stenosis. Mild bilateral foraminal stenosis due to uncovertebral arthrosis. C5-C6: Moderate degenerative disc disease. Posterior disc osteophyte complex results in mild canal stenosis. Mild bilateral foraminal stenosis due to facet and uncovertebral arthrosis. C6-C7: Moderate degenerative disc disease. Posterior disc osteophyte complex without canal stenosis. Mild right and moderate left foraminal stenosis due to uncovertebral arthrosis. IMPRESSION: 1. No acute cervical spine fracture or dislocation. 2. Ligament, spinal cord and or vascular abnormalities cannot be excluded on the basis of this examination. 3. Cervical spondylosis as detailed above. Signed by: Dr. Shazia Fuentes M.D. on 11/09/2018 1:48 AM
[2018-11-09 03:17] LABS: BASOPHILS % 0.3 % (0.0-1.0); EOSINOPHILS # (AUTO) 0.1 (0.0-0.4); EOSINOPHILS % 1.5 % (0.0-6.0); HEMATOCRIT 32.5 % (34.2-44.1); HEMOGLOBIN 10.7 g/dL (12.0-16.0); LYMPHOCYTES # (AUTO) 1.8 (1.0-3.2); LYMPHOCYTES % 19.9 % (18.0-39.1); MEAN CORPUSCULAR HEMOGLOBIN 33.3 pg (28-32); MEAN CORPUSCULAR HGB CONC 32.9 g/dL (31-35); MEAN CORPUSCULAR VOLUME 101.2 fL (81-99); MONOCYTES # (AUTO) 0.5 (0.2-0.8); MONOCYTES % 5.6 % (4.4-11.3); NEUTROPHILS # (AUTO) 6.5 (2.1-6.9); NEUTROPHILS % 71.8 % (38.7-80.0); PLATELET COUNT 77 x10e3/uL (140-360); RED BLOOD COUNT 3.21 x10e6/uL (3.6-5.1)
[2018-11-09 03:38] LABS: ALBUMIN 2.3 g/dL (3.5-5.0); ALBUMIN/GLOBULIN RATIO 0.4 (0.8-2.0); ANION GAP 14.8 mmol/L (8-16); CALCIUM 8.6 mg/dL (8.4-10.2); CREATININE, SERUM 1.37 mg/dL (0.57-1.11); POTASSIUM 3.8 mmol/L (3.5-5.1)
[2018-11-09 04:11] VITALS: BP 162/83
[2018-11-09] MEDS ORDERED: LACTULOSE SYRUP 20 GM/30 ML UDC PO ONE ×2 (04:30)
[2018-11-09 04:33] LABS: CREATINE KINASE MB 9.7 ng/mL (0-5.0)
== END 2018-11-09 05:11 ==
LOC: ER 00:11
DX: S00.31XA Abrasion of nose, initial encounter (principal); S00.81XA Abrasion of other part of head, initial encounter; W01.0XXA Fall on same level from slipping, tripping and stumbling without subsequent striking against object, initial encounter; Y92.008 Other place in unspecified non-institutional (private) residence as the place of occurrence of the external cause; F17.210 Nicotine dependence, cigarettes, uncomplicated
CPT/HCPCS: 36415; 70450; 72125; 80053; 82140; 82550; 82553; 84484; 85025; 93005; 99284

== ENCOUNTER 2018-11-29 20:02 | Emergency (ER) | payer MEDICARE ==
[~2018-11-29] VITALS: Ht 157.5 cm; Wt 58.5 kg
--- NOTE | 2018-11-29 21:52 | NUR ---
MARCELLE AT [facility] CALLED FOR TRANSPORT
[2018-11-29 22:31] VITALS: BP 148/76
== END 2018-11-29 22:45 | disposition home or self-care (01) ==
LOC: ER 20:02
DX: Z00.00 Encounter for general adult medical examination without abnormal findings (principal); I10 Essential (primary) hypertension; K21.9 Gastro-esophageal reflux disease without esophagitis; M54.9 Dorsalgia, unspecified; G89.29 Other chronic pain
CPT/HCPCS: 99283

== ENCOUNTER → 2018-12-16 | Outpatient (CLI) | payer MEDICARE ==
[2018-12-16 14:49] LABS: BASOPHILS % 0.2 % (0.0-1.0); EOSINOPHILS # (AUTO) 0.1 (0.0-0.4); EOSINOPHILS % 1.3 % (0.0-6.0); HEMATOCRIT 28.8 % (34.2-44.1); HEMOGLOBIN 9.4 g/dL (12.0-16.0); LYMPHOCYTES % 10.8 % (18.0-39.1); MEAN CORPUSCULAR HGB CONC 32.6 g/dL (31-35); MONOCYTES # (AUTO) 0.9 (0.2-0.8); NEUTROPHILS # (AUTO) 7.4 (2.1-6.9); NEUTROPHILS % 77.7 % (38.7-80.0); PLATELET COUNT 86 x10e3/uL (140-360); RED BLOOD COUNT 2.94 x10e6/uL (3.6-5.1); RED CELL DISTRIBUTION WIDTH 13.7 % (11.7-14.4)
[2018-12-16 14:58] LABS: INR 1.52; PROTHROMBIN TIME 18.9 seconds (11.9-14.5)
[2018-12-16 14:59] LABS: PARTIAL THROMBOPLASTIN TIME 37.4 seconds (23.8-35.5)
[2018-12-16 15:51] LABS: HYPOCHROMASIA SLIGHT; LYMPHOCYTES % (MANUAL) 12 % (19-48); MONOCYTES % (MANUAL) 3 % (3.4-9.0); NEUTROPHILS % (MANUAL) 85 % (40-74); PLATELET ESTIMATE SLIGHTLY DECREASED; PLATELET MORPHOLOGY COMMENT NORMAL; RBC MORPHOLOGY COMMENT NORMAL
--- NOTE | 2018-12-16 16:09 | Diagnostic Imaging Report ---
PROCEDURE: Ultrasound-guided paracentesis Procedural Personnel Attending physician(s): Naveed Maki MD Pre-procedure diagnosis: Cirrhosis, ascites Post-procedure diagnosis: Same Indication: Ascites with pain or pressure symptoms Additional clinical history: None Complications: No immediate complications. IMPRESSION: Ultrasound-guided paracentesis with drainage of 2400 mL of serous fluid. Plan: Resume care by clinical team. PROCEDURE SUMMARY: - Limited abdominal ultrasound - Ultrasound-guided paracentesis - Additional procedure(s): None PROCEDURE DETAILS: Pre-procedure Consent: Informed consent for the procedure including risks, benefits and alternatives was obtained and time-out was performed prior to the procedure. Preparation: The site was prepared and draped using maximal sterile barrier technique including cutaneous antisepsis. Anesthesia/sedation Level of anesthesia/sedation: No sedation Initial abdominal ultrasound Initial abdominal ultrasound was performed. Findings: Moderate ascites. A safe window for paracentesis was identified. Paracentesis Local anesthesia was administered. The peritoneal cavity was accessed and fluid return confirmed position. Ascites was drained. The catheter was then removed, and a sterile bandage was applied. Paracentesis access technique: Real-time ultrasound guidance Catheter placed: 5F Yueh Post-drainage ultrasound: Small ascites Additional Details Additional description of procedure: None Equipment details: None Specimens removed: Abdominal fluid Estimated blood loss (mL): Less than 10 Standardized report: [id number] Attestation Signer name: Naveed Maki MD I attest that I was present for the entire procedure. I reviewed the stored images and agree with the report as written. Signed by: Naveed Maki MD on 12/16/2018 4:05 PM
== END ==
LOC: US 13:35
PROVIDERS: ATTEND Internal Medicine
DX: R18.8 Other ascites (principal); K74.60 Unspecified cirrhosis of liver
CPT/HCPCS: 36415; 49083; 85025; 85610; 85730; C1729

== ENCOUNTER → 2019-01-13 | Outpatient (CLI) | payer MEDICARE ==
--- NOTE | 2019-01-13 13:56 | Diagnostic Imaging Report ---
Ultrasound guided paracentesis, 01/13/2019. Clinical History: Ascites. Sedation: None. Radiologist: Junaid Roth MD Beveler: None. Estimated Blood Loss: < 1 cc. Specimen: 2150 cc of clear yellow fluid, samples sent to laboratory. Technique: Informed consent was obtained. The risks of pain, bleeding, infection, bowel perforation, injury to adjacent structures, and adverse medication reactions were discussed with the patient. After informed consent was obtained, the patient's abdomen was scanned. The right lower quadrant of the abdomen was selected for paracentesis. After the largest fluid pocket area was marked, and the anterior abdominal wall was evaluated with color Doppler to exclude presence of blood vessels traversing the area, the skin was prepped and draped in the usual sterile manner. After local anesthesia was achieved with 1% lidocaine, a 5 [place] one-step catheter was advanced into the peritoneal cavity under ultrasound guidance. After completion of drainage, the catheter was removed. There was no evidence of complication. Impression: Successful ultrasound guided paracentesis. Signed by: Junaid Roth MD on 01/13/2019 1:53 PM
== END ==
LOC: US 12:21
PROVIDERS: ATTEND Internal Medicine
DX: R18.8 Other ascites (principal); K74.60 Unspecified cirrhosis of liver
CPT/HCPCS: 49083; C1729

== ENCOUNTER → 2019-01-26 | Outpatient (CLI) | payer MEDICARE ==
[~2019-01-26] MED LIST changes: +BACTRIM DS TAB1 EACH PO; +FOLIC ACID PO; +FUROSEMIDE40 MG PO; +ULTRAM 50MG50 MG PO; +XIFAXAN200 MG PO
[2019-01-26 11:30] LABS: BASOPHILS % 0.3 % (0.0-1.0); EOSINOPHILS # (AUTO) 0.1 (0.0-0.4); EOSINOPHILS % 0.7 % (0.0-6.0); HEMATOCRIT 25.2 % (34.2-44.1); HEMOGLOBIN 8.4 g/dL (12.0-16.0); LYMPHOCYTES # (AUTO) 0.8 (1.0-3.2); LYMPHOCYTES % 12.1 % (18.0-39.1); MEAN CORPUSCULAR HEMOGLOBIN 31.1 pg (28-32); MEAN CORPUSCULAR HGB CONC 33.3 g/dL (31-35); MEAN CORPUSCULAR VOLUME 93.3 fL (81-99); MONOCYTES # (AUTO) 0.6 (0.2-0.8); MONOCYTES % 9.6 % (4.4-11.3); NEUTROPHILS # (AUTO) 5.1 (2.1-6.9); NEUTROPHILS % 76.9 % (38.7-80.0); PLATELET COUNT 57 x10e3/uL (140-360); RED CELL DISTRIBUTION WIDTH 15.8 % (11.7-14.4)
[2019-01-26 11:41] LABS: INR 1.46; PROTHROMBIN TIME 18.3 seconds (11.9-14.5)
[2019-01-26 11:42] LABS: PARTIAL THROMBOPLASTIN TIME 36.7 seconds (23.8-35.5)
--- NOTE | 2019-01-26 12:21 | Diagnostic Imaging Report ---
EXAM: Focused Ultrasound Evaluation of the abdomen INDICATION: ^[id number] ^[id number] ^UNSPC'D CIRRHOSIS OF LIVER COMPARISON: None TECHNIQUE: Lopez scale images of the 4 quadrants of the abdomen were obtained. FINDINGS: Sonographic evaluation of the 4 quadrants of the abdomen demonstrate small volume ascites only in the left upper quadrant. No ascites in the remainder of the abdomen. IMPRESSION: Small volume ascites localized to only the left upper quadrant. After discussing with the patient that therapeutic paracentesis in this area would likely only result in a small volume of fluid removal and unlikely to improve her symptoms of leg swelling and abdominal distention, decision was made to defer planned paracentesis. Signed by: Naveed Maki MD on 01/26/2019 12:18 PM
== END ==
LOC: US 11:07
PROVIDERS: ATTEND Internal Medicine
DX: K74.60 Unspecified cirrhosis of liver (principal)
CPT/HCPCS: 36415; 76705; 85025; 85610; 85730

== ENCOUNTER 2019-05-19 16:46 | Emergency (ER) | payer MEDICARE ==
[~2019-05-19] VITALS: Ht 157.5 cm; Wt 58.5 kg
[2019-05-19] MEDS ORDERED: ONDANSETRON HCL INJ 2MG/ML 2ML 2 MG/ML VIAL IV STA (16:56)
[2019-05-19] MEDS ORDERED: SODIUM CHLORIDE 0.9% 1000ML 1,000 ML IV STA (16:56)
[2019-05-19] MEDS ORDERED: MORPHINE SULFATE INJ 4 MG/ML INJ 1ML IV STA (16:56)
[2019-05-19] MEDS ORDERED: LIDOCAINE HCL 1% LOCAL INJ 20 ML VIAL INJ ONE (17:00)
[2019-05-19] MEDS ORDERED: MORPHINE SULFATE INJ 4 MG/ML INJ 1ML ONE (17:10)
[2019-05-19] MEDS ORDERED: PIPER-TAZ 3.375 GM 50 ML IV ONE (18:45)
[2019-05-19] MEDS ORDERED: VANCOMYCIN 1GM/NS 250 ML 250 ML IV ONE (18:45)
[2019-05-19 18:53] LABS: BODY FLUID APPEARANCE TURBID; BODY FLUID COLOR RED; BODY FLUID TYPE SYNOVIAL
--- NOTE | 2019-05-19 19:00 | NUR ---
BAROMETERS CALIBRATOR AT PTS BEDSIDE; 60 CC PURULENT, BLOODY DRAINAGE REMOVED FROM RIGHT KNEE VIA 16 GAUGE NEEDLE, PT TOLERATED PROCEDURE WELL
--- NOTE | 2019-05-19 19:34 | Diagnostic Imaging Report ---
EXAMINATION: CHEST SINGLE (PORTABLE) INDICATION: ^RIGHT KNEE ? SEPTIC ARTHRITIS ^[id number] ^[id number] COMPARISON: Chest radiograph 02/22/2019 FINDINGS: AP view TUBES and LINES: None. LUNGS: Hyperinflated lungs. Bilateral emphysematous changes, unchanged. Mild linear scarring in the right lower lobe. No new consolidations. PLEURA: No pleural effusion or pneumothorax. HEART AND MEDIASTINUM: The cardiomediastinal silhouette is unremarkable. BONES AND SOFT TISSUES: Severe right glenohumeral joint degenerative change. Soft tissues are unremarkable. UPPER ABDOMEN: No free air under the diaphragm. IMPRESSION: No acute thoracic abnormality. Next Stable emphysematous changes. Signed by: Dr. Sol Burton M.D. on 05/19/2019 7:31 PM
[2019-05-19 19:53] LABS: RBC,BODY FLUID 118800 cells/uL; WBC,BODY FLUID 229680 cells/uL
--- NOTE | 2019-05-19 19:53 | Diagnostic Imaging Report ---
LEFT FOREARM X-RAY - 2 VIEWS HISTORY: ^pt fell and hit left arm ^[id number] ^[id number] COMPARISON: None available. FINDINGS: Bones: No acute displaced fracture. Osseous alignment is within normal limits. Joints: The joint spaces are well-maintained. Soft tissues: The soft tissues appear unremarkable. IMPRESSION: No acute radiographic abnormality. Signed by: Dr. Sol Burton M.D. on 05/19/2019 7:50 PM
--- NOTE | 2019-05-19 19:58 | Diagnostic Imaging Report ---
LEFT ELBOW X-RAY - 3 VIEWS HISTORY: ^pt fell and hit left arm ^[id number] ^1839 COMPARISON: None available. FINDINGS: Bones: Linear lucency within the lateral aspect of the proximal ulna seen only on one view. Small bone protrusion within the distal humerus. Osseous alignment is within normal limits. Joints: The joint spaces are well-maintained. Soft tissues: Diffuse soft tissue swelling along the ventral aspect of the elbow. IMPRESSION: Questionable nondisplaced fracture of the proximal left ulna. Consider CT for further evaluation. Diffuse soft tissue swelling around the elbow. Signed by: Dr. Sol Burton M.D. on 05/19/2019 7:54 PM
--- NOTE | 2019-05-19 19:59 | Diagnostic Imaging Report ---
RIGHT KNEE X-RAY - 3 VIEWS HISTORY: ^RIGHT KNEE ? SEPTIC ARTHRITIS ^[id number] ^1849 COMPARISON: None available. FINDINGS: Bones: No acute displaced fracture. Total right knee arthroplasty. Hardware is intact. Osseous alignment is within normal limits. Joints: The joint spaces are well-maintained. Soft tissues: Extensive soft tissue swelling surrounding the medial aspect of the right knee. IMPRESSION: No acute bony abnormality. Extensive soft tissue swelling/hematoma surrounding the right knee. Signed by: Dr. Sol Burton M.D. on 05/19/2019 7:55 PM
[2019-05-19 20:00] LABS: BILIRUBIN,URINE NEGATIVE (NEGATIVE); CLARITY,URINE SL CLOUDY (CLEAR); COLOR,URINE YELLOW (YELLOW); KETONES,URINE NEGATIVE (NEGATIVE); LEUKOCYTE ESTERASE ,URINE NEGATIVE (NEGATIVE); NITRITE,URINE NEGATIVE (NEGATIVE); PROTEIN,URINE DIPSTICK NEGATIVE (NEGATIVE); URINE UROBILINOGEN 1 mg/dL (0.2 - 1)
[2019-05-19 20:11] LABS: BACTERIA,URINE MANY /HPF; EPITHELIAL CELLS,URINE FEW /LPF
[2019-05-19 20:33] LABS: LYMPHOCYTES,BODY FLUID 74 %; MONO/MACROPHG,BODY FLUID 18 %; NEUTROPHILS,BODY FLUID 8 %
[2019-05-19 20:45] LABS: BASOPHILS # (AUTO) 0.1 (0.0-0.1); BASOPHILS % 0.5 % (0.0-1.0); EOSINOPHILS # (AUTO) 0.1 (0.0-0.4); EOSINOPHILS % 0.2 % (0.0-6.0); HEMATOCRIT 32.5 % (34.2-44.1); HEMOGLOBIN 10.5 g/dL (12.0-16.0); LYMPHOCYTES # (AUTO) 1.2 (1.0-3.2); LYMPHOCYTES % 5.1 % (18.0-39.1); MEAN CORPUSCULAR HEMOGLOBIN 31.3 pg (28-32); MEAN CORPUSCULAR HGB CONC 32.3 g/dL (31-35); MONOCYTES # (AUTO) 1.9 (0.2-0.8); MONOCYTES % 8.1 % (4.4-11.3); NEUTROPHILS # (AUTO) 20.2 (2.1-6.9); NEUTROPHILS % 84.9 % (38.7-80.0); PLATELET COUNT 143 x10e3/uL (140-360); RED BLOOD COUNT 3.35 x10e6/uL (3.6-5.1); RED CELL DISTRIBUTION WIDTH 16.3 % (11.7-14.4)
[2019-05-19 20:54] LABS: INR 1.86; PARTIAL THROMBOPLASTIN TIME 34.2 seconds (23.8-35.5); PROTHROMBIN TIME 22.8 seconds (11.9-14.5)
[2019-05-19 21:01] LABS: ALANINE AMINOTRANSFERASE 22 IU/L (0-55); ALBUMIN 1.4 g/dL (3.5-5.0); ALBUMIN/GLOBULIN RATIO 0.3 (0.8-2.0); ALKALINE PHOSPHATASE 189 IU/L (40-150); ANION GAP 10.1 mmol/L (8-16); BLOOD UREA NITROGEN 31 mg/dL (7-26); BUN/CREATININE RATIO 38 (6-25); CALCIUM 7.4 mg/dL (8.4-10.2); CARBON DIOXIDE 20 mmol/L (22-29); CHLORIDE 106 mmol/L (98-107); CREATINE KINASE 44 IU/L (29-168); CREATININE, SERUM 0.82 mg/dL (0.57-1.11); EST GLOMERULAR FILTRATION RATE > 60 ML/MIN (60-); GLUCOSE 88 mg/dL (74-118); POTASSIUM 5.1 mmol/L (3.5-5.1); SODIUM 131 mmol/L (136-145)
--- NOTE | 2019-05-19 21:10 | NUR ---
pt returned from CT via stretcher with nad noted
--- NOTE | 2019-05-19 21:17 | NUR ---
transfer initiated to [facility]
[2019-05-19 21:52] LABS: LYMPHOCYTES % (MANUAL) 3 % (19-48); MONOCYTES % (MANUAL) 9 % (3.4-9.0); NEUTROPHILS % (MANUAL) 87 % (40-74); PLATELET ESTIMATE ADEQUATE; PLATELET MORPHOLOGY COMMENT NORMAL; RBC MORPHOLOGY COMMENT NORMAL
--- NOTE | 2019-05-19 21:53 | Diagnostic Imaging Report ---
EXAM: CT left elbow without contrast INDICATION: Status post fall. COMPARISON: Left forearm and elbow radiographs 05/19/2019. TECHNIQUE: Left elbow was scanned utilizing a multidetector helical scanner without administration of IV contrast. Coronal and sagittal reformations were obtained. Routine protocol was performed. IV CONTRAST: None. RADIATION DOSE: Total DLP: 412.3 mGy*cm Estimated effective dose: (DLP x 0.015 x size factor) mSv COMPLICATIONS: None FINDINGS: No evidence of acute fracture or malalignment. No CT correlate for the right same-day radiographic finding of the proximal ulna, which may have been artifactual. Diffuse extensive soft tissue edema surrounding the elbow. No drainable fluid collection. No significant elbow joint effusion. A supracondylar spur of the distal humerus is incidentally noted, likely not of clinical significance. IMPRESSION: No evidence of acute fracture or malalignment. Diffuse extensive soft tissue edema surrounding the elbow. No significant elbow joint effusion. Signed by: Dr. Ainsley Persaud MD on 05/19/2019 9:49 PM
[2019-05-19] MEDS ORDERED: VANCOMYCIN 1GM/NS 250 ML 250 ML ONE (21:54)
== END 2019-05-20 01:00 | disposition other institution (70) ==
LOC: ER 16:46
DX: M25.561 Pain in right knee (principal); M00.9 Pyogenic arthritis, unspecified; M79.632 Pain in left forearm; R26.2 Difficulty in walking, not elsewhere classified; W19.XXXA Unspecified fall, initial encounter; I10 Essential (primary) hypertension; K21.9 Gastro-esophageal reflux disease without esophagitis; M06.9 Rheumatoid arthritis, unspecified
CPT/HCPCS: 20610; 36415; 71045; 73080; 73090; 73200; 73562; 80053; 81001; 82550; 82553; 83605; 83735; 84484; 85025; 85610; 85730; 87040; 87070; 87086; 87186; 87205; 89051; 89060; 93005; 99284; J2001; J2270; J2405; J2543; J3370; J7030

== ENCOUNTER 2019-06-25 20:50 | Emergency (ER) | payer MEDICARE ==
[~2019-06-25] VITALS: Ht 157.5 cm; Wt 58.5 kg
--- OUTSIDE RECORDS SUMMARY | 2019-06-25 20:54 | XMS REPORT | Continuity of Care Document ---
Author Author [employer] [facility] [employer] Address Unknown Phone Unavailable Care Team Providers Care Stamp Pad Maker Name Role Phone Frilp Information Exchange Unavailable Un available Problems Problem Status Onset Date Classification Date Reported Comments Source Derangement of meniscus, not elsewhere classified Active Problem 02/15/2014 Jose R Ruiz Osteoarthrosis, lower leg Acti ve Problem 09/2014 Jose R Ruiz Rheumatoid arthritis Active Problem 02/15/2014 Jose R Ruiz Hepatitis C carrier Active Problem 02/15/2014 Jose R Ruiz Unspecified drug dependence Ac tive Diagnosis 0 08/18/2013 Jose R Ruiz Medications Medication Details Route Status Patient Instructions Ordering Provider Order Date Source Hydrocodone-Acetaminophen 1 ta blet as needed Orally Active 7.5- 325 MG Orally every 6 hrs Latoya Ruiz Plaquenil 1 tablet with food o r milk Orally Active 200 MG Orally BID Latoya Ruiz Synvisc One Use as directed G eneric: Hylan NA Active 8 MG/ML Latoya Ruiz [...] 113 06/15/2013 Jose R Ruiz Height 63 0 06/15/2013 Jose R Ruiz Temperature Oral (F) 98.2 F 06/15/2013 Jose R Ruiz Heart Rate 76 06/15/2013 Jose R Ruiz Diastolic (mm Hg) 94 06/15/2013 Jose R Ruiz Systolic (mm Hg) 158 06/15/2013 Jose R Ruiz Encounters Location Location Details Encounter Type Encounter Number Reason For Visit Attending Provider ADM Date DC Date Status Source Rogelio Ruiz MD f/u [id number] 06/15/2013 06/15/2013 Jose R Ruiz MD f/u [id number] 06/15/2013 06/15/2013 Jose R Ruiz MD Follow up [id number] 02/09/19 15 02/09/2014 Jose R Ruiz Procedures No Data Provided for This Section Assessment and Plan No Data Provided for This Section Plan of Care No Data Provided for This Section Social History Social History Date Source Social History ElementQualifiersDate Rep orted Tobacco Use: . Are you a:: current smoker , How oft en do you smoke cigarettes?: every day, How [...]
--- OUTSIDE RECORDS SUMMARY | 2019-06-25 20:54 | XMS REPORT ---
Author Author [facility] t Organization [facility] Address [address] [place] [address] Phone Unavailable Care Team Providers Care Order Checker Packer Processer Name Role Phone Lois ALVES MD PCP SOLOMON URIBE Attphys Unavailable CANDICE MAE Attphys Unavailable JANET DIAZ Attphys Unavailable Lois ALVES Attphys Unavailable Masood GALEANO Attphys Unavailable Lois SANCHEZ Attphys Unavailable CAROLEE GUERRA Admphys Unavailable Lois SANCHEZ Admphys Unavailable Payers Payer Name Policy Type Policy Number Effective Date Expiration Date Masood rodríguez [employer] [id number] 2019 00:00:[address] [facility] [employer] Medicare [id number] 2018 00:00:[address] [facility] [employer] [id number] 2018 00:00:00 [facility] Problems Condition Name Condition Details Condition Category Status Onset Date Resolution Date Last Treatment Date Treating Clinician Comments Source Ascites Ascites Problem Active [facility] Hepatic cirrhosis Cirrhosis Problem Active [facility] Pneumonia Pneumonia Problem Active [facility] Rectal prolapse Rectal prolapse Problem Active [facility] Urinary tract infection UTI (urinary tract infection) Problem Active [facility] Allergies, Adverse Reactions, Alerts This patient has no known allergies or adverse reactions. Medications Ordered Medication Name Filled Medication Name Start Date Stop Da te Current Medication? Ordering Clinician Indication Dosage Frequency Signature (SIG) Comments Components Source Acetaminophen With Codeine (Tylenol With Codeine #3 Tablet) 1 Each Tablet, 300 Mg Oral Acetaminophen With Codeine (Tylenol With Codeine #3 Tablet) 1 Each Tablet, 300 Mg Oral 2018-10-21 00:00:00 2019-02-22 00:00:00 Enedina Sanchez Md 300 Every 6 Hours as needed for Pain [facility] Folic Acid Folic Acid Yes 1 Daily [facility] Furosemide 40 Mg Tablet Furosemide 40 Mg Tablet Yes 20 Daily [facility] Lactulose 20 Gm/30 Ml Solution Lactulose 20 Gm/30 Ml Solution Yes 30 Three Times A Day [facility] Rifaximin (Xifaxan) 200 Mg Tablet Rifaximin (Xifaxan) 200 Mg Tablet Yes 200 Twice A Day [facility] Sertraline Hcl (Zoloft) 50 Mg Tablet Sertraline Hcl (Zoloft) 50 Mg Tablet Yes 50 Daily [facility] Spironolactone 25 Mg Tablet Spironolactone 25 Mg Tablet Yes 25 Daily [facility] Sulfamethoxazole/Trimethoprim (Bactrim Ds Tablet) 1 Ea ch Tablet Sulfamethoxazole/Trimethoprim (Bactrim Ds Tablet) 1 Each Tablet Yes 1 Daily [facility] Tramadol Hcl (Ultram 50MG*) 50 Mg Tab Tramadol Hcl (Ultram 50MG*) 5 0 Mg Tab Yes 50 As Needed [facility] Folic Acid 1 Mg Tablet, 1 Mg Oral Folic Acid 1 Mg Tablet, 1 Mg O ral 2019-02-22 00:00:00 No 1 Daily [facility] Hydrocodone Bit/Acetaminophen (Upton 5-325 Tablet) 1 E ach Tablet, 1 Each Oral Hydrocodone Bit/Acetaminophen (Upton 5-325 Tablet) 1 Each Tablet, 1 Each Oral 2019-02-22 00:00:00 No 1 Every 4 Ho urs as needed for Moderate Pain (4-6) [facility] Lactulose 20 Gm/30 Ml Solution, 15 Mg Oral Lactulose 2 0 Gm/30 Ml Solution, 15 Mg Oral 2019-02-22 00:00:00 No 15 Daily [facility] Losartan Potassium 50 Mg Tablet, 1 Tab Oral Losartan P otassium 50 Mg Tablet, 1 Tab Oral 2019-02-22 00:00:00 No 1 Daily [facility] Multivitamin (Multivitamins) 1 Each Capsule, 1 Tab Ora l Multivitamin (Multivitamins) 1 Each Capsule, 1 Tab Oral 2019-02-22 00:00:00 No 1 Daily [facility] Naph,Mb-Db/K Ph,Mbdb (Phos-Nak Packet) 1 Each Powd.pac k, 1 Packet Oral Naph,Mb- Db/K Ph,Mbdb (Phos-Nak Packet) 1 Each Powd.pack, 1 Packet Oral 2019-02-22 00:00:00 No 1 Daily [facility] Oxycodone Hcl/Acetaminophen (Oxycodone-A cetaminophen 5-325) 1 Each Tablet, 5-325 Each Oral Oxycodone Hcl/Acetaminophen (Oxycodone-A cetaminophen 5-325) 1 Each Tablet, 5-325 Each Oral 2019-02-22 00:00:00 No Every 4 Hours as needed for Moderate Pain (4-6) [facility] Pantoprazole Sodium (Protonix) 40 Mg Suspdr.pkt, 40 Mg Oral Pantoprazole Sodium (Protonix) 40 Mg Suspdr.pkt, 40 Mg Oral 2019-02-22 00:00:00 No 40 Daily [facility] Potassium Chloride (Klor-Con M20) 20 Meq Tabcr, 1 Tab Oral Potassium Chloride (Klor-Con M20) 20 Meq Tabcr, 1 Tab Oral 2019-02-22 00:00:00 No 1 Daily [facility] Rifaximin (Xifaxan) 550 Mg Tablet, 550 Mg Oral Rifaxim in (Xifaxan) 550 Mg Tablet, 550 Mg Oral 2019-02-22 00:00:00 No 550 Twic e A Day [facility] Sertraline Hcl (Zoloft) 50 Mg Tablet, 50 Mg Oral Sertr maco Hcl (Zoloft) 50 Mg Tablet, 50 Mg Oral 2019-02-22 00:00:00 No 50 Daily [facility] Spironolactone 25 Mg Tablet, 25 Mg Oral Spironolactone 25 Mg Tablet, 25 Mg Oral 2019-02-22 00:00:00 No 25 Twice A Day [facility] Thiamine , 100 Mg Oral Thiamine , 100 Mg Oral 2019-02-22 00:00:0 0 No 100 Daily [facility] Procedures Procedure Date / Time Performed Performing Clinician [facility] e Computed tomography, upper extremity; without contrast material 2019-05-19 00:00:00 DERIK FRANCOIS [facility] RECONSTRUCTION OF ANUS 2019-02-23 00:00:00 JANET DIAZ [facility] ANUS SURGERY PROCEDURE 2019-02-23 00:00:00 JANET DIAZ [facility] X-ray of chest, two views 2019-02-22 00:00:00 JANET DIAZ [facility] US Abdomen limited 2019-01-26 00:00:[address] [facility] US guided paracentesis 2019-01-13 00:00:00 KATIE ALVES [facility] Masood [facility] US guided paracentesis 2018-12-16 00:00:00 KATIE ALVES [facility] S [facility] Computed tomography of brain without radiopaque contrast 201 10-18-01 00:00:00 [facility] Computed tomography of cervical spine without contrast 11-09 00:00:00 [facility] ABD PARACENTESIS 2018-11-01 00:00:00 [facility] REPOSITION RECTUM, EXTERNAL APPROACH 2018-10-18 00:00:00 [facility] TRANSFUSE NONAUT PLATELETS IN CENTRAL VEIN, [facility] 2018-10-18 00:00:00 [facility] Ultrasound guidance for vascular access 2018-10-14 00:00:00 JENNY SANCHEZ [facility] Computed tomography of brain without radiopaque contrast 201 10-17-05 00:00:00 JESSICA CARRASCO [facility] INSERTION OF INFUSION DEV INTO SUP VENA CAVA, PERC APPROACH 2018-10-14 00:00:00 EVAN PEREZ [facility] TRANSFUSE NONAUT FROZEN PLASMA IN CENTRAL VEIN, PERC 2018-10 00:00:00 JANET DIAZ [facility] Ultrasound, renal 2018-10-12 00:00:00 JANEY STARK [facility] CT of abdomen and pelvis without contrast 2018-10-11 00:00:0 0 MELISSA CHIN [facility] Encounters Start Date/Time End Date/Time En[facility] ID Source 2019-04-07 16:23:[address] [facility] [id number] [facility] 2019-05-19 16:46:00 2019-05-20 01:00:00 Departed Emergency Room 1 CANDICE MAE [facility] [id number] [facility] 2019-03-27 12:03:00 2019-03-27 12:03:[address] [facility] [id number] [facility] 2019-02-23 08:24:00 2019-02-23 08:24:00 Registered Surgical Day Car e JANET GOODRICH [facility] [id number] [facility] 2019-02-20 09:39:00 2019-02-20 09:39:00 Outpatient [facility] [id number] [facility] 2019-02-02 15:47:00 2019-02-02 11:37:[address] [facility] [id number] [facility] 2019-01-30 11:06:00 2019-01-30 11:06:00 Outpatient [facility] [id number] [facility] 2019-01-26 11:07:00 2019-01-26 11:07:00 Registered Clinic 3 PA TEL, [facility] [id number] [facility] 2019-01-13 12:21:00 2019-01-13 12:21:00 Registered Clinic 3 PA TEL, [facility] [id number] [facility] 2018-12-16 13:35:00 2018-12-16 13:35:00 Registered Clinic 3 PA TEL, [facility] [id number] [facility] 2018-11-29 20:02:00 2018-11-29 22:45:00 Departed Emergency Room [facility] [id number] [facility] 2018-11-09 00:11:00 2018-11-09 05:11:00 Departed Emergency Room 1 SOLOMON GALEANO [facility] [id number] [facility] 2018-11-01 11:39:00 2018-11-01 16:53:00 Departed Emergency Room [facility] [id number] [facility] 2018-10-12 00:20:00 2018-10-24 21:40:00 Discharged Inpatient 1 JENNY SANCHEZ [facility] [id number] [facility] 2014-02-09 07:56:00 2014-02-09 07:56:00 Outpatient MD Rogelio Moy MD [id number] Rogelio Ruiz MD 2013-06-15 15:30:00 2013-06-15 15:30:00 Outpatient MD Rogelio Moy MD [id number] Rogelio Ruiz MD Results Test Description Test Time Test Comments Results Result Comments Source BLOOD CULTURE 2019-05-27 09:00:00 Test Item CULTURE (BEAKER) (test code = 1095) No growth in 5 days BLOOD [id number] 17:02:00* Test Item Value Reference Range Interpretation Comments CULTURE (BEAKER) (test code = 1095) A From Aerobic Bottle Only Coagulase negative Staphylococcus GRAM STAIN RESULT (BEAKER) (test code = 1123) From aer obic bottle only: gram positive cocci in clusters BLOOD CULTURE IDENTIFICATION [id number] 17:02:00* Test Item Value Reference Range Interpretation Comments LISTERIA MONOCYTOGENES (test code = 20151111) Not detected Not detec robson STAPHYLOCOCCUS (test code = 7130923) Not detected Not detected STAPHYLOCOCCUS AUREUS (test code = 6586563) Not detected Not detect ed STREPTOCOCCUS (test code = 4848434) Not detected Not detected STREPTOCOCCUS AGALACTIAE (GROUP B) (test code = 2704257) Not detected Not detected STREPTOCOCCUS PNEUMONIAE (test code = 5462271) Not detected Not det ected STREPTOCOCCUS PYOGENES (GROUP A) (test code = 3090182) Not d etected Not detected ACINETOBACTER BAUMANNII (test code = 3561106) Not detected Not dete cted HAEMOPHILUS INFLUENZAE (test code = 1892106) Not detected Not detec robson NEISSERIA MENINGITIDIS (test code = 0915583) Not detected Not detec robson ENTEROBACTERIACEAE (test code = 8111776) ENTEROBACTER CLOACOE COMPLEX (test code = 4705796) Not detected Not detected KLEBSIELLA OXYTOCA (test code = 3432322) Not detected Not detected KLEBSIELLA PNEUMONIAE (test code = 1650) Not detected Not detected PROTEUS (test code = 0000867) SERRATIA MARCESCENS (test code = 3403834) Not detected Not detected ALEX ALBICANS (test code = 6395790) Not detected Not detected ALEX GLABRATA (test code = 7285804) Not detected Not detected ALEX KRUSEI (test code = 1613488) Not detected Not detected ALEX PARAPSILOSIS (test code = 3411067) Not detected Not detecte d ALEX TROPICALIS (test code = 3191378) Not detected Not detected ESCHERICHIA COLI (test code = 0691092) Not detected Not detected METHICILLIN-RESISTANCE GENE (test code = 8415006) VANCOMYCIN-RESISTANCE GENE (test code = 4407950) CARBAPENEM-RESISTANCE GENE (test code = 5532932) This is a corrected result. Previous result was Not detected on 2019 at 1938 CDT ENTEROCOCCUS-BEAKER (test code = 8479124) Not detected Not detected PSEUDOMONAS AERUGINOSA-BEAKER (test code = 0843904) Not detected No t detected Other bacteria and resistance markers not targeted by this PCR panel cannot be e xcluded; therefore clinical correlation and follow up of serology, culture resul ts, and other molecular studies is required. The results are not intended to be used as the sole means for clinical diagnosis or patient management decisions. T his sample was tested at the [facility] using the GIROPTIC Blood Culture ID Panel. It is FDA cleared and has been verified and approved by the [facility] for clinical use. Thi s laboratory is CLIA-certified and [employer] ([employer])-accred ited to perform high complexity testing.BLOOD [id number] 15:24:00* Test Item Value Reference Range Interpretation Comments CULTURE ([facility]) (test code = 1095) SERRATIA MARCESCENS A From Aerobic Bottle Only Serratia marcescens Amikacin (test code = 1) S Aztreonam (test code = 32) S Cefepime (test code = 51) S Cefoxitin (test code = 68) R Ceftazidime (test code = 27) S Ceftriaxone (test code = 52) S Ertapenem (test code = 38) S Gentamicin (test code = 18) S Levofloxacin (test code = 22) S Meropenem (test code = 34) S Nitrofurantoin (test code = 23) R Tetracycline (test code = 2) S Tobramycin (test code = 25) S Trimethoprim + Sulfamethoxazole (test code = 47) R GRAM STAIN RESULT ([facility]) (test code = 1123) From aer obic bottle only: gram negative rods ANAEROBIC [id number] 12:34:00* Test Item Value Reference Range Interpretation Comments CULTURE (BEAKER) (test code = 1095) No anaerobes isolated ANTI-MITOCHONDRIAL AB, REFLEX TO [id number] 12:21:00* Test Item Value Reference Range Interpretation Comments SCAN RESULT (test code = 8782247) HEPATITIS C PCR, [id number] 17:36:00* Test Item Value Reference Range Interpretation Comments HCV RESULT COMPONENT (BEAKER) (test code = 2699) HCV RNA not detected HCV RNA not detected This test uses a Real-Time Polymerase Chain Reaction (RT-PCR) methodology and wa s performed using AB[employer] Ampliprep/ABIGAIL TaqMan HCV test kit version 2.0 ([employer]).Reportable range for this assay is 15 - 100,000,000 IU per mL (1.18 - 8.00 Log IU/mL).(CELLAVISION MANUAL DIFF)2019-05-23 11:13:00* Test Item Value Reference Range Interpretation Comments NEUTROPHILS - REL (CELLAVISION)(BEAKER) (test code = 2816) 87 % LYMPHOCYTES - REL (CELLAVISION)(BEAKER) (test code = 2817) 5 % MONOCYTES - REL (CELLAVISION)(BEAKER) (test code = 2818) 3 % MYELOCYTES - REL (CELLAVISION)(BEAKER) (test code = 2822) 1 % 0-0 H BANDS - REL (CELLAVISION)(BEAKER) (test code = 2826) 4 % 0 -10 NEUTROPHILS - ABS (CELLAVISION)(BEAKER) (test code = 2830) 13.83 K/ul 1.56-6.13 H LYMPHOCYTES - ABS (CELLAVISION)(BEAKER) (test code = 2831) 0.80 K/ul 1.18-3.74 L MONOCYTES - ABS (CELLAVISION)(BEAKER) (test code = 2832) 0.48 K/uL 0.24-0.36 H MYELOCYTES-ABS (CELLAVISION)(BEAKER) (test code = 2837) 0.16 K/uL 0.00-0.00 H BANDS - ABS (CELLAVISION)(BEAKER) (test code = 2840) 0.64 K/uL 0 .00-0.80 TOTAL COUNTED (BEAKER) (test code = 1351) 100 PLT MORPHOLOGY (BEAKER) (test code = 486) Normal SMUDGE CELLS (BEAKER) (test code = 1371) Present ANISOCYTOSIS (BEAKER) (test code = 961) 1+ few MACROCYTES (BEAKER) (test code = 964) 1+ few POIKILOCYTES (BEAKER) (test code = 966) 2+ moderate SCHISTOCYTES (BEAKER) (test code = 765) 1+ few OVALOCYTES (BEAKER) (test code = 477) 1+ few TEAR DROP CELLS (BEAKER) (test code = 481) 1+ few MARCE CELLS (BEAKER) (test code = 474) 1+ few PLATELET CONCENTRATION (CELLAVISION)(BEAKER) (test code = 3438) Dec reased Meat Carver ID - Millyneto JiménezKathy comments: Slide comments: CBC W/PLT COUNT & AUTO [id number] 11:13:00* Test Item Value Reference Range Interpretation Comments WHITE BLOOD CELL COUNT (BEAKER) (test code = 775) 15.9 K/ L 3.5- 10.5 H RED BLOOD CELL COUNT (BEAKER) (test code = 761) 2.51 M/ L 3.93-5 .22 L HEMOGLOBIN (BEAKER) (test code = 410) 7.7 GM/DL 11.2-15.7 L HEMATOCRIT (BEAKER) (test code = 411) 23.7 % 34.1-44.9 L MEAN CORPUSCULAR VOLUME (BEAKER) (test code = 753) 94.4 fL 79. 4-94.8 MEAN CORPUSCULAR HEMOGLOBIN (BEAKER) (test code = 751) 30.7 pg 25.6-32.2 MEAN CORPUSCULAR HEMOGLOBIN CONC (BEAKER) (test code = 752) 32.5 GM/DL 32.2-35.5 RED CELL DISTRIBUTION WIDTH (BEAKER) (test code = 412) 16.9 % 11.7-14.4 H PLATELET COUNT (BEAKER) (test code = 756) 81 K/CU MM 150-450 L MEAN PLATELET VOLUME (BEAKER) (test code = 754) 11.1 fL 9.4-12 .3 NUCLEATED RED BLOOD CELLS (BEAKER) (test code = 413) 0 /100 WBC 0 -0 ANTI-NUCLEAR ANTIBODY (AJITH)2019-05-23 09:53:00* Test Item Value Reference Range Interpretation Comments ANTI-NUCLEAR ANTIBODY (AJITH) (BEAKER) (test code = 418) Positive Negative A Test performed by IFA method.AJITH TITER AND [id number] 09:53:00* Test Item Value Reference Range Interpretation Comments AJITH TITER (BEAKER) (test code = 1541) :160 AJITH PATTERN (BEAKER) (test code = 1781) Speckled CALCIUM, [id number] 06:32:00* Test Item Value Reference Range Interpretation Comments CALCIUM IONIZED (BEAKER) (test code = 698) 1.03 mmol/L 1.12-1.27 L PH, BLOOD (BEAKER) (test code = 1810) 7.51 COMPREHENSIVE METABOLIC [id number] 05:44:00* Test Item Value Reference Range Interpretation Comments TOTAL PROTEIN (BEAKER) (test code = 770) 5.9 gm/dL 6.0-8.3 L ALBUMIN (BEAKER) (test code = 1145) 2.7 g/dL 3.5-5.0 L ALKALINE PHOSPHATASE (BEAKER) (test code = 346) 125 U/L 40-150 BILIRUBIN TOTAL (BEAKER) (test code = 377) 2.4 mg/dL 0.2-1.2 H SODIUM (BEAKER) (test code = 381) 137 meq/L 136-145 POTASSIUM (BEAKER) (test code = 379) 3.3 meq/L 3.5-5.1 L CHLORIDE (BEAKER) (test code = 382) 106 meq/L 98-107 CO2 (BEAKER) (test code = 355) 21 meq/L 22-29 L BLOOD UREA NITROGEN (BEAKER) (test code = 354) 27 mg/dL 7-21 H CREATININE (BEAKER) (test code = 358) 0.94 mg/dL 0.57-1.25 GLUCOSE RANDOM (BEAKER) (test code = 652) 101 mg/dL 70-105 CALCIUM (BEAKER) (test code = 697) 7.8 mg/dL 8.4-10.2 L AST (SGOT) (BEAKER) (test code = 353) 30 U/L 5-34 ALT (SGPT) (BEAKER) (test code = 347) 15 U/L 6-55 EGFR (BEAKER) (test code = 1092) 60 mL/min/1.73 sq m ESTIMATED GFR IS NOT ACCURATE CREATININE CLEARANCE IN PREDICTING GLOMERULAR FILTRATION RATE. ESTIMATED GFR IS NOT APPLICABLE FOR DIALYSIS PATIENTS. Meat Carver ID - ANA M WSpecimen slightly [id number] 05:43:00* Test Item Value Reference Range Interpretation Comments PHOSPHORUS (ANGELINAAKER) (test code = 604) 2.1 mg/dL 2.3-4.7 L Meat Carver ID - ANA M [id number] 05:43:00* Test Item Value Reference Range Interpretation Comments MAGNESIUM (ANGELINAAKER) (test code = 627) 2.3 mg/dL 1.6-2.6 Meat Carver ID - ANA M WB-TYPE NATRIURETIC FACTOR (BNP)2019-05-23 05:24:00* Test Item Value Reference Range Interpretation Comments B-TYPE NATRIURETIC PEPTIDE (BENJY) (test code = 700) 362 pg/mL 0-100 H Meat Carver ID - ANA M WPROTHROMBIN TIME/[id number] 05:14:00* Test Item Value Reference Range Interpretation Comments PROTIME (BENJY) (test code = 759) 27.5 seconds 11.9-14.2 H INR (BENJY) (test code = 370) 2.6 <=5.9 Effective 07/06/2018: PT Reference Range ChangeNew: 11.9-14.2 Previous: 11.7-14. 7RECOMMENDED COUMADIN/WARFARIN INR THERAPY RANGESSTANDARD DOSE: 2.0-3.0 Include s: PROPHYLAXIS for venous thrombosis, systemic embolization; TREATMENT for venou s thrombosis and/or pulmonary embolus.HIGH RISK: Target INR is 2.5-3.5 for patie nts wiht mechanical heart valves.(CELLAVISION MANUAL DIFF)2019 17:28:00* Test Item Value Reference Range Interpretation Comments NEUTROPHILS - REL (CELLAVISION)(BEAKER) (test code = 2816) 77 % LYMPHOCYTES - REL (CELLAVISION)(BEAKER) (test code = 2817) 10 % MONOCYTES - REL (CELLAVISION)(BEAKER) (test code = 2818) 3 % EOSINOPHILS - REL (CELLAVISION)(BEAKER) (test code = 2819) 1 % BANDS - REL (CELLAVISION)(BEAKER) (test code = 2826) 7 % 0 -10 ATYPICAL LYMPHOCYTES - REL (CELLAVISION)(BEAKER) (test code = 2829) 2 % 0-0 H NEUTROPHILS - ABS (CELLAVISION)(BEAKER) (test code = 2830) 6.39 K/ul 1.56-6.13 H LYMPHOCYTES - ABS (CELLAVISION)(BEAKER) (test code = 2831) 0.83 K/ul 1.18-3.74 L MONOCYTES - ABS (CELLAVISION)(BEAKER) (test code = 2832) 0.25 K/uL 0.24-0.36 EOSINOPHILS - ABS (CELLAVISION)(BEAKER) (test code = 2834) 0.08 K/uL 0.04-0.36 BANDS - ABS (CELLAVISION)(BEAKER) (test code = 2840) 0.58 K/uL 0 .00-0.80 ATYPICAL LYMPHOCYTES - ABS (CELLAVISION)(BEAKER) (test code = 2858) 0.17 K/uL 0.00-0.00 H TOTAL COUNTED (BEAKER) (test code = 1351) 100 SMUDGE CELLS (BEAKER) (test code = 1371) Present GIANT PLATELETS (BEAKER) (test code = 313) Present LARGE PLT(BEAKER) (test code = 2156) Present ANISOCYTOSIS (BEAKER) (test code = 961) 2+ moderate MACROCYTES (BEAKER) (test code = 964) 2+ moderate POIKILOCYTES (BEAKER) (test code = 966) 1+ few ROULEAUX (BEAKER) (test code = 763) 1+ few SPHEROCYTES (BEAKER) (test code = 768) 1+ few OVALOCYTES (BEAKER) (test code = 477) 1+ few TEAR DROP CELLS (BEAKER) (test code = 481) 1+ few ARTIFACT (CELLAVISION)(BEAKER) (test code = 3432) Present PLATELET CONCENTRATION (CELLAVISION)(BEAKER) (test code = 3438) Dec reased Meat Carver ID - [place] ShafipourUser comments: Slide comments: CBC W/PLT COUNT & AUTO [id number] 16:59:00* Test Item Value Reference Range Interpretation Comments WHITE BLOOD CELL COUNT (BEAKER) (test code = 775) 8.3 K/ L 3.5- 10.5 RED BLOOD CELL COUNT (BEAKER) (test code = 761) 2.45 M/ L 3.93-5 .22 L HEMOGLOBIN (BEAKER) (test code = 410) 7.5 GM/DL 11.2-15.7 L HEMATOCRIT (BEAKER) (test code = 411) 22.9 % 34.1-44.9 L MEAN CORPUSCULAR VOLUME (BEAKER) (test code = 753) 93.5 fL 79. 4-94.8 MEAN CORPUSCULAR HEMOGLOBIN (BEAKER) (test code = 751) 30.6 pg 25.6-32.2 MEAN CORPUSCULAR HEMOGLOBIN CONC (BEAKER) (test code = 752) 32.8 GM/DL 32.2-35.5 RED CELL DISTRIBUTION WIDTH (BEAKER) (test code = 412) 16.7 % 11.7-14.4 H PLATELET COUNT (BEAKER) (test code = 756) 68 K/CU MM 150-450 L MEAN PLATELET VOLUME (BEAKER) (test code = 754) 9.7 fL 9.4-12 .3 NUCLEATED RED BLOOD CELLS (BEAKER) (test code = 413) 0 /100 WBC 0 -0 BODY FLUID [id number] 14:48:00* Test Item Value Reference Range Interpretation Comments CRYSTALS, BODY FLUID (BEAKER) (test code = 2165) Calci um pyrophosphate crystals for pseudogout QUANTITY SEEN (BEAKER) (test code = 2166) Few [id number] (BEAKER) (test code = 2607) Radha Galvez MD (electronic signature) RAD, CHEST, 1 VIEW, NON [id number] 14:38:00Reason for exam:->Fluid overloadShould this be performed at the bedside?->YesFINAL REPORT TECHNIQUE: Frontal view of the chest. INDICATION: Fluid overload. COMPARISON: None. FINDINGS: LINES/TUBES: Right IJ intravenous catheter with the tip over the right atrium. LUNGS: Increased interstitial markings of the lungs. Volume loss in the left medial lung base. PLEURA: No pneumothorax or significant pleural effusion. HEART AND MEDIASTINUM: The cardiomediastinal silhouette is within normal limits. SOFT TISSUES AND BONES: Remodeling of the right humeral head with severe degenerative changes. Osseous bodies in the right humeral joint. Likely moderate degenerative changes of the partially visualized left glenohumeral joint. Acute, mainly displaced fractures of the left posterior ribs 3, 5, and 6 IMPRESSION: The increased interstitial markings of the lungs are concerning for interstitial pulmonary edema. Left basilar subsegmental atelectasis. Acute, minimally displaced fractures of the left posterior ribs 3, 4, and 6. No pleural effusion or pneumothorax. Signed: Bozena Mackort Veri heraclio Date/Time: 2019 14:38:44 Reading Location: [facility] B1 C013Y CT Body Read ing Room FLUID CULTURE + GRAM [id number] 10:29:00* Test Item Value Reference Range Interpretation Comments CULTURE (BEAKER) (test code = 1095) SERRATIA MARCESCENS A 4+ Serratia marcescens Amikacin (test code = 1) S Aztreonam (test code = 32) S Cefepime (test code = 51) S Cefoxitin (test code = 68) R Ceftazidime (test code = 27) S Ceftriaxone (test code = 52) S Ertapenem (test code = 38) S Gentamicin (test code = 18) S Levofloxacin (test code = 22) S Meropenem (test code = 34) S Nitrofurantoin (test code = 23) R Tetracycline (test code = 2) S Tobramycin (test code = 25) S Trimethoprim + Sulfamethoxazole (test code = 47) R GRAM STAIN RESULT (BEAKER) (test code = 1123) 4+ WBCs GRAM STAIN RESULT (BEAKER) (test code = 702703) 4+ gram negative ro ds CBC (HEMOGRAM ONLY)2019 06:33:00* Test Item Value Reference Range Interpretation Comments WHITE BLOOD CELL COUNT (BEAKER) (test code = 775) 6.3 K/ L 3.5- 10.5 RED BLOOD CELL COUNT (BEAKER) (test code = 761) 2.34 M/ L 3.93-5 .22 L HEMOGLOBIN (BEAKER) (test code = 410) 7.2 GM/DL 11.2-15.7 L HEMATOCRIT (BEAKER) (test code = 411) 22.5 % 34.1-44.9 L MEAN CORPUSCULAR VOLUME (BEAKER) (test code = 753) 96.2 fL 79. 4-94.8 H MEAN CORPUSCULAR HEMOGLOBIN (BEAKER) (test code = 751) 30.8 pg 25.6-32.2 MEAN CORPUSCULAR HEMOGLOBIN CONC (BEAKER) (test code = 752) 32.0 GM/DL 32.2-35.5 L RED CELL DISTRIBUTION WIDTH (BEAKER) (test code = 412) 16.8 % 11.7-14.4 H PLATELET COUNT (BEAKER) (test code = 756) 79 K/CU MM 150-450 L MEAN PLATELET VOLUME (BEAKER) (test code = 754) 11.8 fL 9.4-12 .3 NUCLEATED RED BLOOD CELLS (BEAKER) (test code = 413) 0 /100 WBC 0 -0 COMPREHENSIVE METABOLIC [id number] 06:30:00* Test Item Value Reference Range Interpretation Comments TOTAL PROTEIN (BEAKER) (test code = 770) 5.6 gm/dL 6.0-8.3 L ALBUMIN (BEAKER) (test code = 1145) 2.2 g/dL 3.5-5.0 L ALKALINE PHOSPHATASE (BEAKER) (test code = 346) 122 U/L 40-150 BILIRUBIN TOTAL (BEAKER) (test code = 377) 1.9 mg/dL 0.2-1.2 H SODIUM (BEAKER) (test code = 381) 131 meq/L 136-145 L POTASSIUM (BEAKER) (test code = 379) 3.1 meq/L 3.5-5.1 L CHLORIDE (BEAKER) (test code = 382) 104 meq/L 98-107 CO2 (BEAKER) (test code = 355) 20 meq/L 22-29 L BLOOD UREA NITROGEN (BEAKER) (test code = 354) 31 mg/dL 7-21 H CREATININE (BEAKER) (test code = 358) 0.81 mg/dL 0.57-1.25 GLUCOSE RANDOM (BENJY) (test code = 652) 94 mg/dL 70-105 CALCIUM (BEAKER) (test code = 697) 7.2 mg/dL 8.4-10.2 L AST (SGOT) (BEAKER) (test code = 353) 26 U/L 5-34 ALT (SGPT) (ANGELINAAKER) (test code = 347) 14 U/L 6-55 EGFR (BENJY) (test code = 1092) 71 mL/min/1.73 sq m ESTIMATED GFR IS NOT ACCURATE CREATININE CLEARANCE IN PREDICTING GLOMERULAR FILTRATION RATE. ESTIMATED GFR IS NOT APPLICABLE FOR DIALYSIS PATIENTS. Meat Carver ID - NAOMY MPROTHROMBIN TIME/[id number] 06:28:00* Test Item Value Reference Range Interpretation Comments PROTIME (BENJY) (test code = 759) 25.0 seconds 11.9-14.2 H INR (BENJY) (test code = 370) 2.3 <=5.9 Effective 07/06/2018: PT Reference Range ChangeNew: 11.9-14.2 Previous: 11.7-14. 7RECOMMENDED COUMADIN/WARFARIN INR THERAPY RANGESSTANDARD DOSE: 2.0-3.0 Include s: PROPHYLAXIS for venous thrombosis, systemic embolization; TREATMENT for venou s thrombosis and/or pulmonary embolus.HIGH RISK: Target INR is 2.5-3.5 for patie nts wiht mechanical heart valves.[id number] 06:27:00* Test Item Value Reference Range Interpretation Comments PHOSPHORUS (BENJY) (test code = 604) 2.6 mg/dL 2.3-4.7 Meat Carver ID - NAOMY [id number] 06:27:00* Test Item Value Reference Range Interpretation Comments MAGNESIUM (BENJY) (test code = 627) 1.8 mg/dL 1.6-2.6 Meat Carver ID - NAOMY MHEPATITIS A ANTIBODY, [id number] 18:11:00* Test Item Value Reference Range Interpretation Comments HEPATITIS A IGG ANTIBODY (BENJY) (test code = 2797) Reactive N onreactive Publications Distribution Clerk ID - DBALPHA FETOPROTEIN (AFP), TUMOR [id number] 18:11:00* Test Item Value Reference Range Interpretation Comments ALPHA-FETOPROTEIN (BEAKER) (test code = 1094) < ng/mL <10.0 Meat Carver ID - DBHEPATITIS B SURFACE [id number] 18:11:00* Test Item Value Reference Range Interpretation Comments HEPATITIS B SURFACE ANTIBODY (BEAKER) (test code = 647) < mIU/mL <8.0 Meat Carver ID - DBHEPATITIS B SURFACE [id number] 18:10:00* Test Item Value Reference Range Interpretation Comments HEPATITIS B SURFACE ANTIGEN (2) (BEAKER) (test code = 2585) Nonreactive Nonreactive Meat Carver ID - DBHEPATITIS B CORE ANTIBODY, [id number] 18:10:00* Test Item Value Reference Range Interpretation Comments HEPATITIS B CORE TOTAL ANTIBODY (BEAKER) (test code = 497) React evelyn Nonreactive Publications Distribution Clerk ID - DBHEPATITIS B CORE ANTIBODY, [id number] 18:09:00* Test Item Value Reference Range Interpretation Comments HEPATITIS B CORE IGM ANTIBODY (BEAKER) (test code = 645) Non reactive Nonreactive Meat Carver ID - DBVANCOMYCIN LEVEL, [id number] 18:04:00* Test Item Value Reference Range Interpretation Comments VANCOMYCIN TROUGH (BEAKER) (test code = 522) 13.4 ug/mL 10.0-20.0 Meat Carver ID - DBIMMUNOGLOBULIN G (IGG)2019-05-21 17:47:00* Test Item Value Reference Range Interpretation Comments IMMUNOGLOBULIN G (IGG) (BEAKER) (test code = 427) 3185 mg/dL 540- 1,822 H Meat Carver ID - DBIRON, TIBC, % SAT. (WITHOUT FERRITIN)2019-05-21 17:47:00* Test Item Value Reference Range Interpretation Comments IRON (BEAKER) (test code = 547) 64.0 ug/dL 40.0-160.0 TOTAL IRON BINDING CAPACITY (BEAKER) (test code = 769) 105 ug/dL 250-450 L IRON % SATURATION (2) (BEAKER) (test code = 2590) 61 % 20-5 5 H Meat Carver ID - [id number] 17:47:00* Test Item Value Reference Range Interpretation Comments ALPHA-1 ANTITRYPSIN (BEAKER) (test code = 502) 155.20 mg/dL 90.00-2 00.00 Meat Carver ID - [id number] 15:58:00* Test Item Value Reference Range Interpretation Comments FERRITIN (BEAKER) (test code = 361) 233.52 ng/mL 5.00-275.00 Meat Carver ID - DBCOMPREHENSIVE METABOLIC [id number] 15:50:00* Test Item Value Reference Range Interpretation Comments TOTAL PROTEIN (BEAKER) (test code = 770) 6.3 gm/dL 6.0-8.3 ALBUMIN (BEAKER) (test code = 1145) 1.6 g/dL 3.5-5.0 L ALKALINE PHOSPHATASE (BEAKER) (test code = 346) 193 U/L 40-150 H BILIRUBIN TOTAL (BEAKER) (test code = 377) 2.0 mg/dL 0.2-1.2 H SODIUM (BEAKER) (test code = 381) 130 meq/L 136-145 L POTASSIUM (BEAKER) (test code = 379) 4.5 meq/L 3.5-5.1 CHLORIDE (BEAKER) (test code = 382) 106 meq/L 98-107 CO2 (BEAKER) (test code = 355) 23 meq/L 22-29 BLOOD UREA NITROGEN (BEAKER) (test code = 354) 36 mg/dL 7-21 H CREATININE (BEAKER) (test code = 358) 0.87 mg/dL 0.57-1.25 GLUCOSE RANDOM (BEAKER) (test code = 652) 118 mg/dL 70-105 H CALCIUM (BEAKER) (test code = 697) 7.0 mg/dL 8.4-10.2 L AST (SGOT) (BEAKER) (test code = 353) 40 U/L 5-34 H ALT (SGPT) (BEAKER) (test code = 347) 20 U/L 6-55 EGFR (BEAKER) (test code = 1092) 65 mL/min/1.73 sq m ESTIMATED GFR IS NOT ACCURATE CREATININE CLEARANCE IN PREDICTING GLOMERULAR FILTRATION RATE. ESTIMATED GFR IS NOT APPLICABLE FOR DIALYSIS PATIENTS. Meat Carver ID - DBPROTHROMBIN TIME/[id number] 15:43:00* Test Item Value Reference Range Interpretation Comments PROTIME (BEAKER) (test code = 759) 21.9 seconds 11.9-14.2 H INR (BEAKER) (test code = 370) 2.0 <=5.9 Effective 07/06/2018: PT Reference Range ChangeNew: 11.9-14.2 Previous: 11.7-14. 7RECOMMENDED COUMADIN/WARFARIN INR THERAPY RANGESSTANDARD DOSE: 2.0-3.0 Include s: PROPHYLAXIS for venous thrombosis, systemic embolization; TREATMENT for venou s thrombosis and/or pulmonary embolus.HIGH RISK: Target INR is 2.5-3.5 for patie nts wiht mechanical heart valves.[id number] 15:40:00* Test Item Value Reference Range Interpretation Comments PHOSPHORUS (BEAKER) (test code = 604) 3.2 mg/dL 2.3-4.7 Meat Carver ID - [id number] 15:40:00* Test Item Value Reference Range Interpretation Comments MAGNESIUM (BEAKER) (test code = 627) 2.0 mg/dL 1.6-2.6 Meat Carver ID - DBLACTIC ACID, [id number] 15:35:00* Test Item Value Reference Range Interpretation Comments LACTATE BLOOD VENOUS (2) (BEAKER) (test code = 2872) 2.08 mmol/L 0 .50-2.20 Meat Carver ID - DBCBC (HEMOGRAM ONLY)2019-05-21 15:24:00* Test Item Value Reference Range Interpretation Comments WHITE BLOOD CELL COUNT (BEAKER) (test code = 775) 15.9 K/ L 3.5- 10.5 H RED BLOOD CELL COUNT (BEAKER) (test code = 761) 2.86 M/ L 3.93-5 .22 L HEMOGLOBIN (BEAKER) (test code = 410) 8.9 GM/DL 11.2-15.7 L HEMATOCRIT (BEAKER) (test code = 411) 26.9 % 34.1-44.9 L MEAN CORPUSCULAR VOLUME (BEAKER) (test code = 753) 94.1 fL 79. 4-94.8 MEAN CORPUSCULAR HEMOGLOBIN (BEAKER) (test code = 751) 31.1 pg 25.6-32.2 MEAN CORPUSCULAR HEMOGLOBIN CONC (BEAKER) (test code = 752) 33.1 GM/DL 32.2-35.5 RED CELL DISTRIBUTION WIDTH (BEAKER) (test code = 412) 16.8 % 11.7-14.4 H PLATELET COUNT (BEAKER) (test code = 756) 124 K/CU MM 150-450 L MEAN PLATELET VOLUME (BEAKER) (test code = 754) 10.9 fL 9.4-12 .3 NUCLEATED RED BLOOD CELLS (BEAKER) (test code = 413) 0 /100 WBC 0 -0 ANG, CV ACCESS, [id number] 14:37:00Reason for Central Line/PICC?->Poor access for patient needing long term acute care registered nurse treatmentPoor access for patient needing prison treatment:->Failed attempts/contraindications of peripheral and/or midline IV accessReason for exam:->need stat cvc.Anesthesia:->NoneFINAL REPORT PROCEDURE: Non-tunneled central venous catheter placement Procedural PersonnelAttending physician(s): Ebony Rodriguez physician(s): NoneResident physician(s): [facility]Ad[facility] provider[facility] None Pre-procedure diagnosis: Osteomyelitis, poor IV accessPost-procedure diagnosis: SameIndication: Administration of intravenous medicationsAdditional clinical his tory: None Complications: No immediate complications. IMPRESSION: Insertion of r ight-sided non-tunneled triple-lumen temporary central venous catheter, with tip in the expected location of the cavoatrial junction. Plan: The catheter may be used immediately. PROCEDURE SUMMARY:- Venous access with ultrasound guidance- Non-tunneled central venous catheter insertion with fluoroscopic guidance- Additional procedure(s): None PROCEDURE DETAILS: Pre-procedureConsent: Informed consent for the procedure including risks, benefits and alternatives was obtained and time-out was perf ormed prior to the procedure.Preparation (MIPS): The site was prepared and drape d using all elements of maximal sterile barrier technique including sterile glov es, sterile gown, cap, mask, large sterile sheet, sterile ultrasound probe cover , hand hygiene and cutaneous antisepsis with 2% chlorhexidine. Medical reason fo r site preparation exception (MIPS): Not applicable Anesthesia/sedationLevel of anesthesia/sedation: No sedationAnesthesia/sedation administered by: Independent trained observer under attending supervision with continuous monitoring of the patient\\X2019\\s level of consciousness and physiologic status AccessLocal anesth esia was administered. The vessel was sonographically evaluated and determined t o be patent. Real time ultrasound was used to visualize needle entry into the ve ssel and a permanent image was stored.Vein accessed: Internal jugular veinAccess technique: Micropuncture set with 21 gauge needle Catheter placementThe access site was dilated and the catheter was placed into the vein over a wire under fl uoroscopic guidance. The catheter tip location was fluoroscopically verified an d a permanent image was stored.. A sterile dressing was applied.Catheter placed: Bard triple lumenCatheter size (Serbian): 7Catheter length (cm): 16Catheter flus h: Normal salineCatheter securement technique: Non-absorbable suture ContrastCon trast agent: None Radiation DoseFluoroscopy time (minutes): 0.1 Reference air k jacobo (mGy): 0.7 Additional DetailsAdditional description of procedure: NoneEqui pment details: NoneSpecimens removed: NoneEstimated blood loss (mL): Less than 1 0Standardized report: [email or web address] AttestationSigner name: Waqar Fernandes attest that I was present for the entire procedure. I reviewed the stor ed images and agree with the report as written. Signed: Evan Perez MDReport [place] ified Date/Time: 05/21/2019 14:37:26 Reading Location: [place] [address] Angio Body R eading Room D CULTURE IDENTIFICATION [id number] 03:58:00* Test Item Value Reference Range Interpretation Comments LISTERIA MONOCYTOGENES (test code = 2331985) Not detected Not detec robson STAPHYLOCOCCUS (test code = 0571115) Not detected Not detected STAPHYLOCOCCUS AUREUS (test code = 6715448) Not detected Not detect ed STREPTOCOCCUS (test code = 0543844) Not detected Not detected STREPTOCOCCUS AGALACTIAE (GROUP B) (test code = 3097448) Not detected Not detected STREPTOCOCCUS PNEUMONIAE (test code = 1680766) Not detected Not det ected STREPTOCOCCUS PYOGENES (GROUP A) (test code = 2392135) Not d etected Not detected ACINETOBACTER BAUMANNII (test code = 0175704) Not detected Not dete cted HAEMOPHILUS INFLUENZAE (test code = 2155363) Not detected Not detec robson NEISSERIA MENINGITIDIS (test code = 1054245) Not detected Not detec robson ENTEROBACTERIACEAE (test code = 0796086) Not detected Not detected ENTEROBACTER CLOACOE COMPLEX (test code = 5504486) Not detected Not detected KLEBSIELLA OXYTOCA (test code = 1277580) Not detected Not detected KLEBSIELLA PNEUMONIAE (test code = 1650) Not detected Not detected PROTEUS (test code = 3140225) Not detected Not detected SERRATIA MARCESCENS (test code = 1341020) Detected Not detected A Serratia marcescensKPC not detected (a carbapenamase gene)First-line therapy: Cefepime or MeropenemDe-escalate based on susceptibilitiesReference Range: Not Detected ALEX ALBICANS (test code = 5721061) Not detected Not detected ALEX GLABRATA (test code = 9396300) Not detected Not detected ALEX KRUSEI (test code = 6603407) Not detected Not detected ALEX PARAPSILOSIS (test code = 1368596) Not detected Not detecte d ALEX TROPICALIS (test code = 4148250) Not detected Not detected ESCHERICHIA COLI (test code = 2227000) Not detected Not detected METHICILLIN-RESISTANCE GENE (test code = 4388192) VANCOMYCIN-RESISTANCE GENE (test code = 4985037) CARBAPENEM-RESISTANCE GENE (test code = 9462873) Not detected Not d etected ENTEROCOCCUS-BEAKER (test code = 6909199) Not detected Not detected PSEUDOMONAS AERUGINOSA-BEAKER (test code = 9964216) Not detected No t detected Other bacteria and resistance markers not targeted by this PCR panel cannot be e xcluded; therefore clinical correlation and follow up of serology, culture resul ts, and other molecular studies is required. The results are not intended to be used as the sole means for clinical diagnosis or patient management decisions. T his sample was tested at the [facility] using the [employer] Blood Culture ID Panel. It is FDA cleared and has been verified and approved by the [facility] for clinical use. Thi s laboratory is CLIA-certified and [employer] ([employer])-accred ited to perform high complexity testing.RAPID DRUG SCREEN, [id number] 17:48:00* Test Item Value Reference Range Interpretation Comments BARBITURATE URINE (BEAKER) (test code = 725) Negative Negative BENZODIAZEPINE SCREEN URINE (BEAKER) (test code = 726) Negative Negative COCAINE (METAB.) SCREEN (BEAKER) (test code = 1164) Negative Ne gative METHADONE SCREEN (BEAKER) (test code = 1436) Negative Negative OPIATE SCREEN URINE (BEAKER) (test code = 734) Positive Negativ e A CANNABINOID SCREEN URINE (BEAKER) (test code = 727) Negative Ne gative AMPH/METHAMPH SCREEN (BEAKER) (test code = 1438) Negative Negat evelyn PHENCYCLIDINE SCREEN URINE (BEAKER) (test code = 608) Negative Negative PH UA (BEAKER) (test code = 467) 6.0 5.0-8.0 DRUG CUTOFF CONC.Cocaine 300 ng/mL Cannabinoid 50 ng/mLBenzodiazepine 200 ng/mLBarbiturate 200 ng/mLPh encyclidine 25 ng/mLOpiate 300 ng/mLMethadone 300 ng/mLAmphetamine/ 1000 ng/mL MethamphetamineThis assay provides an unconfirmed qualitative test result for the clinical management of patients in emergency situations. Chain of custody not maintained. Some fbrr-bvp-dfzxldr me dications, as well as adulterants, may cause inaccurate results. Clinical correl ation should be applied. A more comprehensive drug screen or confirmation of a d etected drug may be performed upon request.Meat Carver ID - DBCREATININE, RANDOM [id number] 17:41:00* Test Item Value Reference Range Interpretation Comments CREATININE URINE (BEAKER) (test code = 375) 62.0 mg/dL Reference Range: No NormalsOperator ID - DBSODIUM, RANDOM [id number] 17:41:00* Test Item Value Reference Range Interpretation Comments SODIUM URINE (BEAKER) (test code = 243) 27 meq/L Reference Range: No NormalsOperator ID - DBOSMOLALITY, [id number] 17:38:00 * Test Item Value Reference Range Interpretation Comments OSMOLALITY URINE (BEAKER) (test code = 614) 535 mOsm/kg 40-1,400 U/S, ABDOMINAL, WITH [id number] 16:10:00With Doppler Reason for exam:-> r/o cirrhosis, liver massFINAL REPORT Abdominal ultrasound dated 05/20/2019 Clinical information: r/o cirrhosis, liver mass Comment: Real-time transabdominal ultrasound was performed. Liver is normal in size and measures 12 cm in length. The echogenicity of the liver is course with irregular margins consistent with cirrhosis. No focal lesion is noted in the liver. Spleen is a large measuring 16 cm in length. Gallbladder is distended. Sludge is seen in the gallbladder without gallstone present. No biliary dilatation is seen. Common bile duct measures 3 mm in diameter. Main portal vein measures 5 mm in diameter. Pancreas is incompletely visualized. Right kidney measures 12.0 x 4.7 x 5.2 cm. Left kidney measures 11.0 x 4.2 x 4.0 cm. Echogenicity of both kidney is normal. No hydronephrosis or solid mass seen in either kidney. No cyst is seen in the either kidney. Moderate ascites present in the abdomen. Abdominal aorta is normal in caliber. The IVC is patent. Real- time Color and Spectral doppler ultrasound of the abdomen was performed. Main portal vein measures 0.5 cm in diameter. There is hepatopedal flow in the main portal vein with velocity 14 cm/sec. Right and left portal veins are patent. Proper hepatic artery, right hepatic artery, and left hepatic artery are patent with resistive indices 0.8, 0.7, and 0.7 respectively. IVC, Hepatic venous confluence, right HV, middle HV and left HV are patent. Impression: 1. Cirrhosis with splenomegaly.2. Patent hepatic artery and portal vein.3. Moderate ascites.4. Gallbladder sludge. Signed: Brii Medina MDReport Verified Date/Time: 05/20/2019 16:10:07 Reading Location: [facility] B1 [id number] Consult Reading Room LALITY, [id number] 11:50:00* Test Item Value Reference Range Interpretation Comments OSMOLALITY, SERUM (BEAKER) (test code = 615) 293 mOsm/kg 275-295 RAD, KNEE, 1 OR 2 VIEWS, [id number] 10:05:00Reason for exam:->AP and lateral, assess for looseningFINAL REPORT RAD, KNEE, 1 OR 2 VIEWS, RIGHT INDICATION: AP and lateral, assess for loosening COMPARISON: None TECHNIQUE: Frontal and lateral views of the right knee IMPRESSION: Remote total knee arthroplasty in satisfactory alignment. There is questionable medial lucency along the femoral and tibial stems which may reflect asymmetric stress reaction and/or loosening. Signed: JR Issac, Janusz Escamilla Verified Date/Time: 05/20/2019 10:05:43 Reading Location: [address] Neuro Reading Room IC ACID, [id number] 07:39:00* Test Item Value Reference Range Interpretation Comments LACTATE BLOOD VENOUS (2) (BEAKER) (test code = 2872) 2.62 mmol/L 0 .50-2.20 H Meat Carver ID - NAOMY MBASIC METABOLIC [id number] 07:16:00* Test Item Value Reference Range Interpretation Comments SODIUM (BEAKER) (test code = 381) 129 meq/L 136-145 L POTASSIUM (BEAKER) (test code = 379) 5.1 meq/L 3.5-5.1 CHLORIDE (BEAKER) (test code = 382) 107 meq/L 98-107 CO2 (BEAKER) (test code = 355) 15 meq/L 22-29 L BLOOD UREA NITROGEN (BEAKER) (test code = 354) 38 mg/dL 7-21 H CREATININE (BEAKER) (test code = 358) 0.79 mg/dL 0.57-1.25 GLUCOSE RANDOM (BEAKER) (test code = 652) 58 mg/dL 70-105 L CALCIUM (BEAKER) (test code = 697) 7.3 mg/dL 8.4-10.2 L EGFR (BEAKER) (test code = 1092) 73 mL/min/1.73 sq m ESTIMATED GFR IS NOT ACCURATE CREATININE CLEARANCE IN PREDICTING GLOMERULAR FILTRATION RATE. ESTIMATED GFR IS NOT APPLICABLE FOR DIALYSIS PATIENTS. Meat Carver ID - JUAN MANUELSPEEDY LSpecimen slightly ictericCT, EXTREMITY, LOWER, WITHOUT/WITH CONTRAST, [id number] 07:05:00Please specify:->Tibia/FibulaPlease specify:-> KneePlease specify:->AnkleFINAL REPORT CLINICAL HISTORY: Status post total knee arthroplasty with swelling and concern for abscess COMPARISON: None. FINDINGS: Multiple axial images of the right lower extremity were performed from the mid femur to the ankle before and after the uncomplicated administration of IV contrast. Coronal and sagittal reformats were created. This exam was performed according to our departmental dose-optimization program, which includes automated exposure control, adjustment of the mA and/or kV according to patient size and/or use of the iterative reconstruction technique. Streak artifact from total knee arthroplasty hardware somewhat limits evaluation. The patient has undergone previous total knee arthroplasty with long intramedullary stems and both the distal femur and proximal tibia. The hardware appears appropriately positioned and aligned. There is no acute fracture or destructive bony lesion. There is a complex, multiloculated rim-enhancing fluid collection surrounding the distal femur and extending to the anterior margin of the distal femoral prosthesis. The maximum cross-sectional dimension is at the anterior half of the leg adjacent to the prosthesis and measures 7.6 x 4.1 cm. There are smaller posterior medial loculations. There is extensive subcutaneous edema in the visualized lower extremity. No soft tissue gas is identified. The visualized vasculature is normal. IMPRESSION: Complex density, multiloculated abscess surrounding the femoral component of the total knee arthroplasty, as described. There is no acute fracture, malalignment or evidence of hardware loosening. Signed: Walt Irving MDReport Verified Date/Time: 05/20/2019 07:05:52 FLUID CELL COUNT WITH [id number] 06:49:00* Test Item Value Reference Range Interpretation Comments APPEARANCE FLUID (BEAKER) (test code = 510) Turbid Clear A COLOR FLUID (BEAKER) (test code = 511) Brown Colorless, Stra w A RBC FLUID (BEAKER) (test code = 513) 149267 /cu mm <=1 H ADJUSTED WBC FLUID (BEAKER) (test code = 1691) Unable to identify cell morphology. Cells appear degenerated LINING CELLS (BEAKER) (test code = 1590) Unable to identify cell morphology. Cells appear degenerated NEUTROPHILS FLUID (BEAKER) (test code = 1656) Unable to identify cell morphology. Cells appear degenerated LYMPHS FLUID (BEAKER) (test code = 488) Unable to identify cell morphology. Cells appear degenerated MONO/MACROPHAGE FLUID (BEAKER) (test code = 489) Unable to identify cell morphology. Cells appear degenerated EOSINOPHILS FLUID (BEAKER) (test code = 491) Unable to identify cell morphology. Cells appear degenerated BASO FLUID (BEAKER) (test code = 492) Unable to identify cell morphology. Cells appear degenerated CONTAINER BODY FLUID (BEAKER) (test code = 2873) EDTA Tube CBC W/PLT COUNT & AUTO [id number] 06:41:00* Test Item Value Reference Range Interpretation Comments WHITE BLOOD CELL COUNT (BEAKER) (test code = 775) 15.5 K/ L 3.5- 10.5 H RED BLOOD CELL COUNT (BEAKER) (test code = 761) 3.81 M/ L 3.93-5 .22 L HEMOGLOBIN (BEAKER) (test code = 410) 11.8 GM/DL 11.2-15.7 HEMATOCRIT (BEAKER) (test code = 411) 36.3 % 34.1-44.9 MEAN CORPUSCULAR VOLUME (BEAKER) (test code = 753) 95.3 fL 79. 4-94.8 H MEAN CORPUSCULAR HEMOGLOBIN (BEAKER) (test code = 751) 31.0 pg 25.6-32.2 MEAN CORPUSCULAR HEMOGLOBIN CONC (BEAKER) (test code = 752) 32.5 GM/DL 32.2-35.5 RED CELL DISTRIBUTION WIDTH (BEAKER) (test code = 412) 16.7 % 11.7-14.4 H PLATELET COUNT (BEAKER) (test code = 756) 99 K/CU MM 150-450 L MEAN PLATELET VOLUME (BEAKER) (test code = 754) 9.7 fL 9.4-12 .3 NUCLEATED RED BLOOD CELLS (BEAKER) (test code = 413) 0 /100 WBC 0 -0 (CELLAVISION MANUAL DIFF)2019-05-20 06:41:00* Test Item Value Reference Range Interpretation Comments NEUTROPHILS - REL (CELLAVISION)(BEAKER) (test code = 2816) 85 % LYMPHOCYTES - REL (CELLAVISION)(BEAKER) (test code = 2817) 3 % MONOCYTES - REL (CELLAVISION)(BEAKER) (test code = 2818) 2 % BASOPHILS - REL (CELLAVISION)(BEAKER) (test code = 2820) 1 % BANDS - REL (CELLAVISION)(BEAKER) (test code = 2826) 9 % 0 -10 NEUTROPHILS - ABS (CELLAVISION)(BEAKER) (test code = 2830) 13.18 K/ul 1.56-6.13 H LYMPHOCYTES - ABS (CELLAVISION)(BEAKER) (test code = 2831) 0.47 K/ul 1.18-3.74 L MONOCYTES - ABS (CELLAVISION)(BEAKER) (test code = 2832) 0.31 K/uL 0.24-0.36 BASOPHILS - ABS (CELLAVISION)(BEAKER) (test code = 2835) 0.16 K/uL 0.01-0.08 H BANDS - ABS (CELLAVISION)(BEAKER) (test code = 2840) 1.40 K/uL 0 .00-0.80 H TOTAL COUNTED (BEAKER) (test code = 1351) 100 WBC MORPHOLOGY (BEAKER) (test code = 487) Normal PLT MORPHOLOGY (BEAKER) (test code = 486) Normal ANISOCYTOSIS (BEAKER) (test code = 961) 1+ few MACROCYTES (BEAKER) (test code = 964) 1+ few POIKILOCYTES (BEAKER) (test code = 966) 1+ few ARTIFACT (CELLAVISION)(BEAKER) (test code = 3432) Present PLATELET CONCENTRATION (CELLAVISION)(BEAKER) (test code = 3438) Dec reased Meat [employer]ver ID - Sheyla OverholtUser comments: Slide comments: HEPATIC FUNCTION PANEL 2019-05-20 06:00:00* Test Item Value Reference Range Interpretation Comments TOTAL PROTEIN (BEAKER) (test code = 770) 6.1 gm/dL 6.0-8.3 ALBUMIN (BEAKER) (test code = 1145) 1.5 g/dL 3.5-5.0 L BILIRUBIN TOTAL (BEAKER) (test code = 377) 2.6 mg/dL 0.2-1.2 H BILIRUBIN DIRECT (BEAKER) (test code = 706) 1.7 mg/dL 0.1-0.5 H ALKALINE PHOSPHATASE (BEAKER) (test code = 346) 163 U/L 40-150 H AST (SGOT) (BEAKER) (test code = 353) 35 U/L 5-34 H ALT (SGPT) (BEAKER) (test code = 347) 19 U/L 6-55 [employer] ID - NAOMY MSpecimen slightly ictericBASIC METABOLIC [id number] 05:59:00* Test Item Value Reference Range Interpretation Comments SODIUM (BEAKER) (test code = 381) 128 meq/L 136-145 L POTASSIUM (BEAKER) (test code = 379) 5.0 meq/L 3.5-5.1 CHLORIDE (BEAKER) (test code = 382) 107 meq/L 98-107 CO2 (BEAKER) (test code = 355) 16 meq/L 22-29 L BLOOD UREA NITROGEN (BEAKER) (test code = 354) 35 mg/dL 7-21 H CREATININE (BEAKER) (test code = 358) 0.75 mg/dL 0.57-1.25 GLUCOSE RANDOM (BEAKER) (test code = 652) 57 mg/dL 70-105 L CALCIUM (BEAKER) (test code = 697) 7.1 mg/dL 8.4-10.2 L EGFR (BEAKER) (test code = 1092) 78 mL/min/1.73 sq m ESTIMATED GFR IS NOT ACCURATE CREATININE CLEARANCE IN PREDICTING GLOMERULAR FILTRATION RATE. ESTIMATED GFR IS NOT APPLICABLE FOR DIALYSIS PATIENTS. Meat [employer] ID - NAOMY MSpecimen slightly ictericC-REACTIVE STOIRNH1823-61-86 05:51:00* Test Item Value Reference Range Interpretation Comments C-REACTIVE PROTEIN (BEAKER) (test code = 676) 12.13 mg/dL 0.00-0.5 0 H Meat [employer] ID - NAOMY MLACTIC ACID, [id number] 05:35:00* Test Item Value Reference Range Interpretation Comments LACTATE BLOOD VENOUS (2) (BEAKER) (test code = 2872) 3.25 mmol/L 0 .50-2.20 H Specimen slightly hemolyzed Meat Carver ID - NAOMY MBASIC METABOLIC [id number] 04:35:00* Test Item Value Reference Range Interpretation Comments SODIUM (BEAKER) (test code = 381) 127 meq/L 136-145 L POTASSIUM (BEAKER) (test code = 379) 5.1 meq/L 3.5-5.1 CHLORIDE (BEAKER) (test code = 382) 108 meq/L 98-107 H CO2 (BEAKER) (test code = 355) 15 meq/L 22-29 L BLOOD UREA NITROGEN (BEAKER) (test code = 354) 35 mg/dL 7-21 H CREATININE (BEAKER) (test code = 358) 0.76 mg/dL 0.57-1.25 GLUCOSE RANDOM (BEAKER) (test code = 652) 63 mg/dL 70-105 L CALCIUM (BEAKER) (test code = 697) 7.3 mg/dL 8.4-10.2 L EGFR (BEAKER) (test code = 1092) 76 mL/min/1.73 sq m ESTIMATED GFR IS NOT ACCURATE CREATININE CLEARANCE IN PREDICTING GLOMERULAR FILTRATION RATE. ESTIMATED GFR IS NOT APPLICABLE FOR DIALYSIS PATIENTS. Meat Carver ID - NAOMY MDifferential Total Cells Tkqhwcg0353-08-73 21:52:00* Test Item Value Reference Range Interpretation Comments Differential Total Cells Counted (test code = Juan Francisco tial Total Cells Counted) 100 [facility] CenterNeutrophils % (Manual)2019-05-19 21:52:00 * Test Item Value Reference Range Interpretation Comments Neutrophils % (Manual) (test code = 53803-1) 87 40-74 [facility] CenterLymphocytes % (Manual)2019-05-19 21:52:00 * Test Item Value Reference Range Interpretation Comments Lymphocytes % (Manual) (test code = 737-7) 3 19-48 [facility] CenterMonocytes % (Manual)2019-05-19 21:52:00* Test Item Value Reference Range Interpretation Comments Monocytes % (Manual) (test code = 744-3) 9 3.4-9.0 [facility] CenterBasophils % (Manual)2019-05-19 21:52:00* Test Item Value Reference Range Interpretation Comments Basophils % (Manual) (test code = 11742-1) 1 0-1.5 [facility] CenterPlatelet Rwxyidwm0210-69-70 21:52:00* Test Item Value Reference Range Interpretation Comments Platelet Estimate (test code = 18633-6) ADEQUATE [facility] CenterPlatelet Morphology Aitoogf7680-30-82 21:52:00* Test Item Value Reference Range Interpretation Comments Platelet Morphology Comment (test code = 22741-2) NORMAL [facility] CenterRed Cell Morphology Zeejejm7171-86-91 21:52:00* Test Item Value Reference Range Interpretation Comments Red Cell Morphology Comment (test code = 6742-1) NORMAL [facility] CenterCT ELBOW LEFT NF6961-88-81 21:42:00 [facility] [address] [address] Patient Name: ARLET ALVARENGA MR #: [id number] : 1955 Age/Sex: 63/F Req #: [id number] Adm Physician: Ordered by: DERIK FRANCOIS NP Report #: [id number] Location: ER Room/Bed: Procedure: [id number] CT/CT ELBOW LEFT WO Exam Date: 05/19/19 Exam Time: 2 100 REPORT STATUS: Signed EXAM: CT left elbow without contrast INDICATION: Status post fall. COMPARISO N: Left forearm and elbow radiographs 05/19/2019. TECHNIQUE: Left elbow was scanned utilizing a multidetector helical scanner without administration of IV contrast. Coronal and sagittal reformations were obtained. Routine protocol w as performed. IV CONTRAST: None. RADIATION DOSE: To rosalinda DLP: 412.3 mGy*cm Estimated effective dose: (DLP x 0.015 x si ze factor) mSv COMPLICATIONS: None FINDINGS: No evidence of acute fracture or malalignment. No CT correlate for the right same-day radiog raphic finding of the proximal ulna, which may have been artifactual. Dif fuse extensive soft tissue edema surrounding the elbow. No drainable fluid col lection. No significant elbow joint effusion. A supracondylar spur of the distal humerus is incidentally noted, likely not of clinical significance. IMPRESSION: No evidence of acute fracture or malalignment. Diffuse extensi ve soft tissue edema surrounding the elbow. No significant elbow joint effusio n. Signed by: Dr. Kassy Kruse MD on 05/19/2019 9:49 PM Dictated By: Masood KRUSE MD 48 Transcri bed By: BALJINDER on 05/19/192148 COPY TO: DERIK FRANCOIS NP Sodium Acvjg4669-64-64 21:09:00* Test Item Value Reference Range Interpretation Comments Sodium Level (test code = 2951-2) 131 136-145 [facility] CenterPotassium Macea1625-03-39 21:09:00* Test Item Value Reference Range Interpretation Comments Potassium Level (test code = 2823-3) 5.1 3.5-5.1 [facility] CenterChloride Bifkc8584-05-32 21:09:00* Test Item Value Reference Range Interpretation Comments Chloride Level (test code = 2075-0) 106 98-107 [facility] CenterCarbon Dioxide Nqnnb9549-38-21 21:09:00* Test Item Value Reference Range Interpretation Comments Carbon Dioxide Level (test code = 2028-9) 20 22-29 [facility] CenterAnion Uyk0301-49-71 21:09:00* Test Item Value Reference Range Interpretation Comments Anion Gap (test code = 45148-4) 10.1 8-16 [facility] CenterBlood Urea Sjxgopwb9783-44-00 21:09:00* Test Item Value Reference Range Interpretation Comments Blood Urea Nitrogen (test code = 3094-0) 31 7-26 [facility] CenterCreatinine2020-04-10 21:09:00* Test Item Value Reference Range Interpretation Comments Creatinine (test code = 2160-0) 0.82 0.57-1.11 [facility] CenterBUN/Creatinine Nszmp3938-81-36 21:09:00* Test Item Value Reference Range Interpretation Comments BUN/Creatinine Ratio (test code = 3097-3) 38 6-25 [facility] CenterEstimat Glomerular Filtration Rate 2019-05-19 21:09:00* Test Item Value Reference Range Interpretation Comments Estimat Glomerular Filtration Rate (test code = 231902274) > 60 >60 Ranges were taken from the National Kidney Disease Education Program and the [facility] literature.Reference ranges:60 or greater: Ywjuif39-80 ( for 3 consecutive months): Chronic kidney disease 15 or less: Kidney failurePeterson Regional Medical CenterGlucose Edjpc7953-00-42 21:09:00* Test Item Value Reference Range Interpretation Comments Glucose Level (test code = SOU6283) 88 74-118 [facility] CenterCalcium Wpoqy3910-19-96 21:09:00* Test Item Value Reference Range Interpretation Comments Calcium Level (test code = 92746-1) 7.4 8.4-10.2 [facility] CenterMagnesium Kkzfn6815-60-23 21:09:00* Test Item Value Reference Range Interpretation Comments Magnesium Level (test code = 04064-7) 2.0 1.3-2.1 [facility] CenterTotal Rlrzrbktg4225-55-49 21:09:00* Test Item Value Reference Range Interpretation Comments Total Bilirubin (test code = 1975-2) 2.1 0.2-1.2 [facility] CenterAspartate Amino Transf (AST/SGOT) 2019-05-19 21:09:00* Test Item Value Reference Range Interpretation Comments Aspartate Amino Transf (AST/SGOT) (test code = Aspartate Amino Transf (AST/SGOT)) 43 5-34 [facility] CenterAlanine Aminotransferase (ALT/SGPT) 2019-05-19 21:09:00* Test Item Value Reference Range Interpretation Comments Alanine Aminotransferase (ALT/SGPT) (test code = 1742-6) 22 0-55 [facility] CenterTotal Opbatpl0120-45-03 21:09:00* Test Item Value Reference Range Interpretation Comments Total Protein (test code = 2885-2) 6.6 6.5-8.1 [facility] CenterAlbumin2020-04-10 21:09:00* Test Item Value Reference Range Interpretation Comments Albumin (test code = 1751-7) 1.4 3.5-5.0 [facility] CenterGlobulin2020-04-10 21:09:00* Test Item Value Reference Range Interpretation Comments Globulin (test code = 10985-5) 5.2 2.3-3.5 [facility] CenterAlbumin/Globulin Jxetr1976-56-20 21:09:00 * Test Item Value Reference Range Interpretation Comments Albumin/Globulin Ratio (test code = 1759-0) 0.3 0.8-2.0 [facility] CenterAlkaline Vtkivfgnvjd1413-07-94 21:09:00* Test Item Value Reference Range Interpretation Comments Alkaline Phosphatase (test code = 6768-6) 189 40-150 [facility] CenterCreatine Waegcd2800-79-22 21:09:00* Test Item Value Reference Range Interpretation Comments Creatine Kinase (test code = 2157-6) 44 29-168 [facility] CenterCreatine Kinase EN4928-64-62 21:09:00* Test Item Value Reference Range Interpretation Comments Creatine Kinase MB (test code = 63808-7) 4.20 0-5.0 [facility] CenterTroponin G7823-25-31 21:09:00* Test Item Value Reference Range Interpretation Comments Troponin I (test code = 13800-6) 0.013 0-0.300 [facility] CenterProthrombin Fcxq7470-66-35 21:00:00* Test Item Value Reference Range Interpretation Comments Prothrombin Time (test code = 5902-2) 22.8 11.9-14.5 [facility] CenterProthromb Time International Ratio 2019-05-19 21:00:00* Test Item Value Reference Range Interpretation Comments Prothromb Time International Ratio (test code = 6301-6) 1.86 Oral Anticoagulant Therapy INR Values:1. Low Intensity Therapy 1.5 - 2.02 . Moderate Intensity Therapy 2.0 - 3.03. High Intensity Therapy(1) 2.5 - 3. 54. High Intensity Therapy(2) 3.0 - 4.05. Panic Value INR > 5.0 [facility] CenterActivated Partial Thromboplast Time 2019-05-19 21:00:00* Test Item Value Reference Range Interpretation Comments Activated Partial Thromboplast Time (test code = 20688-2) 34.2 23.8-35.5 [facility] CenterLactic Acid Dvpjc1566-68-39 20:58:00* Test Item Value Reference Range Interpretation Comments Lactic Acid Level (test code = Lactic Acid Level) 3.0 0.5- 2.0 Results repeated and called to DR. MAE at 2057 on 05/19/19 by SAM HIRSCH. Read back and verified.[facility] CenterWhite Blood Count 2019-05-19 20:48:00* Test Item Value Reference Range Interpretation Comments White Blood Count (test code = 6690-2) 23.73 4.8-10.8 [facility] CenterRed Blood Govgf6264-79-85 20:48:00* Test Item Value Reference Range Interpretation Comments Red Blood Count (test code = 789-8) 3.35 3.6-5.1 [facility] CenterHemoglobin2020-04-10 20:48:00* Test Item Value Reference Range Interpretation Comments Hemoglobin (test code = 43951-9) 10.5 12.0-16.0 [facility] CenterHematocrit2020-04-10 20:48:00* Test Item Value Reference Range Interpretation Comments Hematocrit (test code = 4544-3) 32.5 34.2-44.1 [facility] CenterMean Corpuscular Vfjopr6596-28-71 20:48:00* Test Item Value Reference Range Interpretation Comments Mean Corpuscular Volume (test code = 787-2) 97.0 81-99 [facility] CenterMean Corpuscular Sknfxvjmtp4924-03-51 20:48:00* Test Item Value Reference Range Interpretation Comments Mean Corpuscular Hemoglobin (test code = 785-6) 31.3 28-32 [facility] Corp[facility] Hemoglobin Concent 2019-05-19 20:48:00* Test Item Value Reference Range Interpretation Comments Mean Corpuscular Hemoglobin Concent (test code = 786-4) 32.3 31-35 [facility] CenterRed Cell Distribution Grqrk0717-76-21 20:48:00* Test Item Value Reference Range Interpretation Comments Red Cell Distribution Width (test code = 37512-6) 16.3 11.7 -14.4 [facility] CenterPlatelet Ykxlm6564-86-98 20:48:00* Test Item Value Reference Range Interpretation Comments Platelet Count (test code = 777-3) 143 140-360 [facility] CenterNeutrophils (%) (Auto)2019-05-19 20:48:00 * Test Item Value Reference Range Interpretation Comments Neutrophils (%) (Auto) (test code = 47396-3) 84.9 38.7-80.0 [facility] CenterLymphocytes (%) (Auto)2019-05-19 20:48:00 * Test Item Value Reference Range Interpretation Comments Lymphocytes (%) (Auto) (test code = 736-9) 5.1 18.0-39.1 [facility] CenterMonocytes (%) (Auto)2019-05-19 20:48:00* Test Item Value Reference Range Interpretation Comments Monocytes (%) (Auto) (test code = 5905-5) 8.1 4.4-11.3 [facility] CenterEosinophils (%) (Auto)2019-05-19 20:48:00 * Test Item Value Reference Range Interpretation Comments Eosinophils (%) (Auto) (test code = 713-8) 0.2 0.0-6.0 [facility] CenterBasophils (%) (Auto)2019-05-19 20:48:00* Test Item Value Reference Range Interpretation Comments Basophils (%) (Auto) (test code = 706-2) 0.5 0.0-1.0 [facility] CenterIM GRANULOCYTES %2019-05-19 20:48:00* Test Item Value Reference Range Interpretation Comments IM GRANULOCYTES % (test code = IM GRANULOCYTES %) 1.2 0.0- 1.0 [facility] CenterNeutrophils # (Auto)2019-05-19 20:48:00* Test Item Value Reference Range Interpretation Comments Neutrophils # (Auto) (test code = 751-8) 20.2 2.1-6.9 [facility] CenterLymphocytes # (Auto)2019-05-19 20:48:00* Test Item Value Reference Range Interpretation Comments Lymphocytes # (Auto) (test code = 72736-8) 1.2 1.0-3.2 [facility] CenterMonocytes # (Auto)2019-05-19 20:48:00* Test Item Value Reference Range Interpretation Comments Monocytes # (Auto) (test code = 742-7) 1.9 0.2-0.8 [facility] CenterEosinophils # (Auto)2019-05-19 20:48:00* Test Item Value Reference Range Interpretation Comments Eosinophils # (Auto) (test code = 711-2) 0.1 0.0-0.4 [facility] CenterBasophils # (Auto)2019-05-19 20:48:00* Test Item Value Reference Range Interpretation Comments Basophils # (Auto) (test code = 704-7) 0.1 0.0-0.1 [facility] CenterAbsolute Immature Granulocyte (auto 2019-05-19 20:48:00* Test Item Value Reference Range Interpretation Comments Absolute Immature Granulocyte (auto (candi t code = Absolute Immature Granulocyte (auto) 0.29 0-0.1 [facility] CenterBody Fluid Vjkwqghouvu6703-85-96 20:33:00 * Test Item Value Reference Range Interpretation Comments Body Fluid Neutrophils (test code = 94218-9) 8 [facility] CenterBody Fluid Cceuskzkkxi8084-18-02 20:33:00 * Test Item Value Reference Range Interpretation Comments Body Fluid Lymphocytes (test code = 10424103) 74 [facility] CenterBody Fluid Okrmxsrqs3214-46-04 20:33:00* Test Item Value Reference Range Interpretation Comments Body Fluid Monocytes (test code = 25974-5) 18 [facility] CenterBody Fluid Total Cells Jutdzfy6123-50-37 20:33:00* Test Item Value Reference Range Interpretation Comments Body Fluid Total Cells Counted (test code = 50703-7) 100 [facility] CenterUrine NEG6245-30-18 20:11:00* Test Item Value Reference Range Interpretation Comments Urine WBC (test code = 5821-4) NONE 0-5 [facility] CenterUrine YIF5172-43-89 20:11:00* Test Item Value Reference Range Interpretation Comments Urine RBC (test code = 60849-9) 6-10 0-5 [facility] CenterUrine Fxhtydaq1273-71-58 20:11:00* Test Item Value Reference Range Interpretation Comments Urine Bacteria (test code = 68828-3) MANY NONE [facility] CenterUrine Epithelial Egvdj3436-05-98 20:11:00 * Test Item Value Reference Range Interpretation Comments Urine Epithelial Cells (test code = 00974-6) FEW NONE [facility] CenterUrine Jkqaq9856-81-06 20:00:00* Test Item Value Reference Range Interpretation Comments Urine Color (test code = 5778-6) YELLOW YELLOW [facility] CenterUrine Nyrrajg1232-05-58 20:00:00* Test Item Value Reference Range Interpretation Comments Urine Clarity (test code = 62718-0) SL CLOUDY CLEAR [facility] CenterUrine Specific Footgrx4093-26-55 20:00:00 * Test Item Value Reference Range Interpretation Comments Urine Specific [place] (test code = 5811-5) 1.020 1.010-1.02 5 [facility] CenterUrine rL4275-38-03 20:00:00* Test Item Value Reference Range Interpretation Comments Urine pH (test code = 33765-7) 5.5 5-7 [facility] CenterUrine Leukocyte Cldmopfe0110-46-75 20:00:00* Test Item Value Reference Range Interpretation Comments Urine Leukocyte Esterase (test code = 5799-2) NEGATIVE NEGATIVE [facility] CenterUrine Mrpvnji5277-87-58 20:00:00* Test Item Value Reference Range Interpretation Comments Urine Nitrite (test code = 47324-3) NEGATIVE NEGATIVE [facility] CenterUrine Liqifay8144-79-19 20:00:00* Test Item Value Reference Range Interpretation Comments Urine Protein (test code = 5804-0) NEGATIVE NEGATIVE [facility] CenterUrine Glucose (UA)2019-05-19 20:00:00* Test Item Value Reference Range Interpretation Comments Urine Glucose (UA) (test code = 2349-9) NEGATIVE NEGATIVE [facility] CenterUrine Bxdsygi3098-20-45 20:00:00* Test Item Value Reference Range Interpretation Comments Urine Ketones (test code = 74879-7) NEGATIVE NEGATIVE [facility] CenterUrine Vbzdanmfqfck0217-27-29 20:00:00* Test Item Value Reference Range Interpretation Comments Urine Urobilinogen (test code = 53709-1) 1 0.2-1 [facility] CenterUrine Nbxazaegn6149-94-60 20:00:00* Test Item Value Reference Range Interpretation Comments Urine Bilirubin (test code = 1978-6) NEGATIVE NEGATIVE [facility] CenterUrine Eerns3657-09-32 20:00:00* Test Item Value Reference Range Interpretation Comments Urine Blood (test code = 03330-3) TRACE NEGATIVE [facility] CenterKNEE RIGHT THREE DYSKJ0220-58-27 19:54:00 [facility] [address] [address] Patient Name: ARLET ALVARENGA MR #: [id number] : [birth year] Age/Sex: 63/F Req #: [id number] Adm Physician: Ordered by: DARIO TORREZ MD Report #: [id number] Location: ER Room/Bed: Procedure: [id number] DX /KNEE RIGHT THREE VIEWS Exam Date: 05/19/19 Exam Moshe e: 1850 REPORT STATUS: Signed RI GHT KNEE X-RAY - 3 VIEWS HISTORY: RIGHT KNEE ? SEPTIC ARTHRIT IS [id number] COMPARISON: None available. FINDINGS: B ones: No acute displaced fracture. Total right knee arthroplasty. Hardware is intact. Osseous alignment is within normal limits. Joints: The joint spaces are well-maintained. Soft tissues: Extensive soft tissue swelling surrounding the medial aspect of the right knee. IMPRESSION: No acute bony abnormality. Extensive soft tissue swelling/hematoma surrounding the right knee. Signed by: Dr. Sol Burton M.D. on 05/19/2019 7:55 PM Dictated By: SOL BURTON MD 54 Transcribed By: BALJINDER on 05/19/19 1 955 COPY TO: DARIO TORREZ MD Body Fluid NKD7351-80-66 19:53:00 * Test Item Value Reference Range Interpretation Comments Body Fluid WBC (test code = 6743-9) 122437 [facility] CenterBody Fluid DSO5986-60-07 19:53:00* Test Item Value Reference Range Interpretation Comments Body Fluid RBC (test code = 6741-3) 185281 [facility] CenterELBOW LEFT VAOPNXLV5052-86-30 19:50:00 [facility] [address] [address] Patient Name: ARLET ALVARENGA MR #: [id number] : 1955 Age/Sex: 63/F Req #: [id number] Adm Physician: Ordered by: DARIO TORREZ MD Report #: [id number] Location: ER Room/Bed: Procedure: [id number] DX /ELBOW LEFT COMPLETE Exam Date: 05/19/19 Exam Time: 1839 REPORT STATUS: Signed LEFT ELBOW X-RAY - 3 VIEWS HISTORY: pt fell and hit left arm 1839 COMPARISON: None available. FINDINGS: Bones: Linear lucency within the lateral aspect of the proximal ulna seen only on one view. Small bone protrusion within the distal humerus. Osseous alignment is w ithin normal limits. Joints: The joint spaces are well-maintained. S oft tissues: Diffuse soft tissue swelling along the ventral aspect of the elbo w. IMPRESSION: Questionable nondisplaced fracture of the proximal left u fish fryer. Consider CT for further evaluation. Diffuse soft tissue swelling around the elbow. Signed by: Dr. Sol Burton M.D. on 05/19/2019 7:54 PM Dictated By: SOL BURTON MD 53 Transcribed By: BALJINDER on 05/09 COPY TO: DARIO TORREZ MD FOREARM LEFT 2 VIEW 2019-05-19 19:31:00 [address] [address] Patient Name: ARLET ALVARENGA MR #: [id number] : 1955 Age/Sex: 63/F Req #: [id number] Adm Physician: Ordered by: DARIO TORREZ MD Report #: [id number] Location: ER Room/Bed: Procedure: [id number] DX /FOREARM LEFT 2 VIEW Exam Date: 05/19/19 Exam Time: 1829 REPORT STATUS: Signed LEFT FOREARM X-RAY - 2 VIEWS HISTORY: pt fell and hit left arm [id number] COMPARISON: None available. FINDINGS: Bones: No acute displaced fracture. Osseous alignment is within normal limits. Joints: The joint spaces are well-maintained. Soft tissues: The soft tissues appear unremarkable. IMPRESSION: No acute radiographic abnor mality. Signed by: Dr. Sol Burton M.D. on 05/19/2019 7:50 PM Dictated By: SOL BURTON MD 49 Transcribed By: BALJINDER on 05/19/191949 COPY TO: DARIO TORREZ MD CHEST SINGLE (PORTABLE)2019-05-19 19:25:00 [address] [address] Patient Name: ARLET ALVARENGA MR #: [id number] : [birth year] Age/Sex: 63/F Req #: [id number] Adm Physician: Ordered by: DARIO TORREZ MD Report #: [id number] Location: ER Room/Bed: Procedure: [id number] DX /CHEST SINGLE (PORTABLE) Exam Date: 05/19/19 Exam Ti me: 1819 REPORT STATUS: Signed E XAMINATION: CHEST SINGLE (PORTABLE) INDICATION: RIGHT KNEE ? SEPTIC ARTHRITIS [id number] 1819 COMPARISON: Chest radiograph 02/08 FINDINGS: AP view TUBES and LINES: None. LUNGS: Hyperinflated lungs. Bilateral emphysematous changes, unchanged. Mild line ar scarring in the right lower lobe. No new consolidations. PLEURA: No ple ural effusion or pneumothorax. HEART AND MEDIASTINUM: The cardiomediastina l silhouette is unremarkable. BONES AND SOFT TISSUES: Severe right gleno humeral joint degenerative change. Soft tissues are unremarkable. UPPER ABDOMEN: No free air under the diaphragm. IMPRESSION: No acute thora cic abnormality. Next Stable emphysematous changes. Signed by: Dr. Sol Burton M.D. on 05/19/2019 7:31 PM Dictated By: SOL BURTON MD 30 COPY TO: DARIO TORREZ MD Body Fluid Urbr0828-45-17 18:53:00* Test Item Value Reference Range Interpretation Comments Body Fluid Type (test code = 67213-0) SYNOVIAL [facility] Vdrcz3996-04-50 18:53:00* Test Item Value Reference Range Interpretation Comments Body Fluid Color (test code = 6824-7) RED [facility] Lswiwbouel1690-86-16 18:53:00 * Test Item Value Reference Range Interpretation Comments Body Fluid Appearance (test code = 9335-1) TURBID [facility] CenterCHEST 2 JORKY0562-61-38 14:38:00 [facility] [address] [place] [address] Patient Name: ARLET ALVARENGA MR #: [id number] : 1955 Age/Sex: 63/F Req #: [id number] Adm Physician: Ordered by: JANET DIAZ MD Report #: [id number] Location: OR Room/Bed: Procedure: [id number] DX/ CHEST 2 VIEWS Exam Date: 02/22/19 Exam Time: 1400 REPORT STATUS: Signed EXAMINATION: CHEST 2 VIEWS INDICATION: Pre-operative COMPARISON: Chest radiog raph 10/19/2018 FINDINGS: LINES/TUBES:None LUNGS:The lungs ar e hyperinflated. Mild bilateral emphysematous changes. No focal pneumonia or p ulmonary edema. PLEURA:No pleural effusion or pneumothorax. MEDIASTINU M:The cardiomediastinal silhouette appears unchanged in size and shape. B ONES/SOFT TISSUES:No acute osseous injury. Severe degenerative changes of the right glenohumeral joint. ABDOMEN:No free air under the diaphragm. IMPRESSION: Hyperinflated lungs with emphysematous changes. No focal pneumoni a or pulmonary edema. Severe right glenohumeral joint degenerative change s. Signed by: Evan Perez MD on 02/22/2019 2:40 PM Dictated By: RYAN PEREZ MD 1440 Transcribed By: BALJINDER on 02/22/19 1440 COPY TO: JANET DIAZ MD US ABDOMEN QGGZESJ6438-15-33 12:16:00 [place] [address] Patient Name: ARLET ALVARENGA MR #: [id number] : 1955 Age/Sex: 63/F Req #: [id number] Adm Physician: Ordered by: KATIE ALVES MD Report #: [id number] Location: Room/Bed: Procedure: [id number] US /US ABDOMEN LIMITED Exam Date: 01/26/19 Exam Time: 1 148 REPORT STATUS: Signed EXAM: Focused Ultrasound Evaluation of the abdomen INDICATION: [id number] UNSPC'D CIRRHOSIS OF LIVER COMPARISON: None TECHNIQU E: Lopez scale images of the 4 quadrants of the abdomen were obtained. FIND INGS: Sonographic evaluation of the 4 quadrants of the abdomen demonstrate sm all volume ascites only in the left upper quadrant. No ascites in the remainde r of the abdomen. IMPRESSION: Small volume ascites localized to o nly the left upper quadrant. After discussing with the patient that therapeuti c paracentesis in this area would likely only result in a small volume of flui d removal and unlikely to improve her symptoms of leg swelling and abdominal d istention, decision was made to defer planned paracentesis. Signed by: Kat Perez MD on 01/26/2019 12:18 PM Dictated By: EVAN Jesus alberto Signed By: EVAN PEREZ MD on 01/26/198 Transcribed By: BALJINDER on 01/088 COPY TO: KATIE ALVES MD US GUIDED PARACENTESIS 2019-01-13 13:52:00 [place] [address] Patient Name: ARLET ALVARENGA MR #: [id number] : 1955 Age/Sex: 63/F Req #: [id number] Adm Physician: Ordered by: KATIE ALVES MD Report #: [id number] Location: Room/Bed: Procedure: [id number] US /US GUIDED PARACENTESIS Exam Date: Exam Time: REPORT STATUS: Signed Ultrasound rolanda ded paracentesis, 01/13/2019. Clinical History: Ascites. Sedation: Non e. Radiologist: Junaid Melton MD Barrel Washer Machine: None. Estimated Blood Loss: < 1 cc. Specimen: 2150 cc of clear yellow fluid, samples sent to laboratory. Technique: Informed consent was obtained. The risks of pain, bleeding, infection, bowel perforation, injury to adjacent structures, and adverse medication reactions were discussed with the patient. After informed consent was obtained, the patient's abdomen was scanned. The right lower quadrant of the abdomen was selected for paracentesis. After the largest fluid pocket area was marked, and the anterior abdominal wall was evaluated with color Doppler to exclude presence of blood vessels traversing the area, the skin was prepped and draped in the usual sterile manner. After local anesthesia was achieved with 1% lidocaine, a 5 Serbian one-step catheter was advanced into the peritoneal cavity under ultrasound guidance. After completion of drainage, the catheter was removed. There was no evidence of complication. Impression: Successful ultrasound guided paracentesis. Signed by: Junaid Melton MD on 01/13/2019 1:53 PM Dictated By: JUNAID MELTON MD 9112 Transcribed By: BALJINDER on 01/13/19 1354 COPY TO: KATIE ALVES MD US GUIDED CABZMPTKBKEG6977-53-55 16:04:00 [place] [address] Patient Name: ARLET ALVARENGA MR #: [id number] : 1955 Age/Sex: 63/F Req #: [id number] Adm Physician: Ordered by: KATIE ALVES MD Report #: [id number] Location: Room/Bed: Procedure: [id number] US /US GUIDED PARACENTESIS Exam Date: 12/16/18 Exam Moshe e: 1404 REPORT STATUS: Signed MI OCEDURE: Ultrasound-guided paracentesis Procedural Personnel Attending ph ysician(s): Evan Perez MD Pre-procedure diagnosis: Cirrhosis, ascites Po st-procedure diagnosis: Same Indication: Ascites with pain or pressure symptom s Additional clinical history: None Complications: No immediate complicat ions. IMPRESSION: Ultrasound-guided paracentesis with drainage of 2400 mL of serous fluid. Plan: Resume care by clinical team. PROCEDURE SUMMARY: - Limited abdominal ultrasound - Ultrasound-guided paracentesis - Additional procedure(s): None PROCEDURE DETAILS: Pre-procedure Consent: Inform ed consent for the procedure including risks, benefits and alternatives was ob tained and time-out was performed prior to the procedure. Preparation: The sit e was prepared and draped using maximal sterile barrier technique including cu taneous antisepsis. Anesthesia/sedation Level of anesthesia/sedation: No sedation Initial abdominal ultrasound Initial abdominal ultrasound was pe rformed. Findings: Moderate ascites. A safe window for paracentesis was identi fied. Paracentesis Local anesthesia was administered. The peritoneal cavi ty was accessed and fluid return confirmed position. Ascites was drained. The catheter was then removed, and a sterile bandage was applied. Paracentesis a ccess technique: Real-time ultrasound guidance Catheter placed: 5F Rhodaeh Post -drainage ultrasound: Small ascites Additional Details Additional descrip tion of procedure: None Equipment details: None Specimens removed: Abdominal fluid Estimated blood loss (mL): Less than 10 Standardized report: SIR_Para centesis_v3 Attestation Signer name: Evan Perez MD I attest that I was present for the entire procedure. I reviewed the stored images and agree with the report as written. Signed by: Evan Perez MD on 12/16/2018 4:05 PM Dictated By: EVAN PEREZ MD 160 Transcribed By: BALJINDER on 12/16/18 1605 COPY TO: Wilder ALVES MD Wyclvyptulyok8858-78-64 15:52:00* Test Item Value Reference Range Interpretation Comments Hypochromasia (test code = 728-6) SLIGHT [facility]2019-10-02 03:33:00* Test Item Value Reference Range Interpretation Comments Ammonia (test code = 01579-5) 163 31-123 [facility] YQ4032-09-66 01:43:00 [facility] [address] [place] [address] Patient Name: ARLET ALVARENGA MR #: [id number] : 1955 Age/Sex: 63/F Req #: [id number] Adm Physician: Ordered by: SOLOMON GALEANO MD Report #: [id number] Location: ER Room/Bed: Procedure: [id number] CT/CT CERVICAL SPINE WO Exam Date: 11/09/18 Exam Moshe e: 0100 REPORT STATUS: Signed Hi story: Fall. Comparison studies: None Technique: Axial images were obt ained through the cervical region.. Coronal and sagittal images reconstructed from the axial data. Dose modulation, iterative reconstruction, and/or weight based adjustment of the mA/kV was utilized to reduce the radiation dose to as low as reasonably achievable. Intravenous contrast: None Findings: Fractures: None. Soft tissue injuries: None. Atlantoaxial articulatio n: Intact. Alignment: Normal lordosis. No scoliosis. Cervicomedullary juncti on: No abnormalities. The foramen magnum is patent. Soft tissues: No abnormali ties. Vertebrae: No fractures, infection or neoplasm. Degenerative changes: C3-C4: Posterior disc osteophyte complex results in mild canal sten osis. Mild right foraminal stenosis due to uncovertebral arthrosis. C4-C5: S evere degenerative disc disease. Posterior disc osteophyte complex results in mild canal stenosis. Mild bilateral foraminal stenosis due to uncovertebral ar throsis. C5-C6: Moderate degenerative disc disease. Posterior disc osteophyt e complex results in mild canal stenosis. Mild bilateral foraminal stenosis du e to facet and uncovertebral arthrosis. C6-C7: Moderate degenerative disc dise ase. Posterior disc osteophyte complex without canal stenosis. Mild right an d moderate left foraminal stenosis due to uncovertebral arthrosis. IMPRESSI ON: 1. No acute cervical spine fracture or dislocation. 2. Ligament, spinal cord and or vascular abnormalities cannot be excluded on the basis of this examination. 3. Cervical spondylosis as detailed above. Si gned by: Dr. Katarzyna Fuentes M.D. on 11/09/2018 1:48 AM Dictated By: NATALIIA FUENTES MD 7 T ranscribed By: BALJINDER on 11/09/18147 COPY TO: SOLOMON GALEANO MD CT BRAIN VV3055-42-02 01:37:00 [place] [address] Patient Name: ARLET ALVARENGA MR #: [id number] : 1955 Age/Sex: 63/F Req #: [id number] Adm Physician: Ordered by: SOLOMON GALEANO MD Report #: [id number] Location: ER Room/Bed: Procedure: [id number] CT/CT BRAIN WO Exam Date: 11/09/18 Exam Time: 0100 REPORT STATUS: Signed EXAMINATION: Head CT without contrast. HISTORY:Fall. COMPARISON:CT brain from 10/14/2018. TECHNIQUE: Multidetector axial images were obtained from the f oramen magnum to the vertex without contrast. The images were reconstructed us ing brain and bone algorithms. Thin section brain images were reformatted int o coronal and sagittal planes. Dose modulation, iterative reconstruction, an d/or weight based adjustment of the mA/kV was utilized to reduce the radiation dose to as low as reasonably achievable. Intravenous contrast: None IMAGE QUALITY: Suboptimal evaluation due to motion artifacts particularly at the level of skull base and posterior fossa. FINDINGS: Skull/scalp: No lytic or blastic. lesions. No surgical changes. Parenchyma: Nonspecif ic bilateral frontoparietal patchy white matter hypodensity are likely related to small vessel ischemic changes. No acute hemorrhage, mass or acute major va scular territorial infarct. Arteries: No density suggestive of thrombosis. Dural sinuses: No abnormal density suggestive of thrombosis. Ve ntricles: No hydrocephalus or displacement. Extra-axial spaces: No abnorma l density. Brain volume: Mild generalized cerebral volume loss. Cr aniocervical junction: No mass, Chiari malformation, or basilar invagination. Sella: No mass. Paranasal/mastoid sinuses: Imaged portions unremark able. IMPRESSION: No acute intracranial abnormality. No change since CT head from 10/14/2018. Chronic findings: 1. Mild generalized cerebral vo lume loss. 2. Mild supratentorial white matter microvascular ischemic changes. Signed by: Dr. Katarzyna Fuentes M.D. on 11/09/2018 1:43 AM Dictated By: KATARZYNA FUENTES MD 2 Transcribed By: BALJINDER on 11/09/18142 COPY TO: SOLOMON GALEANO MD Body Fluid Other Wodli8095-50-41 20:06:00* Test Item Value Reference Range Interpretation Comments Body Fluid Other Cells (test code = 043510318) 2 [facility] HospitalMODIFIED BA. XMLIWQV7760-52-80 12:38:00 [facility] [address] [place] [address] Patient Name: ARLET ALVARENGA MR #: [id number] : 1955 Age/Sex: 63/F Req #: [id number] Adm Physician: JENNY SANCHEZ MD, ABIM Ordered by: JENNY SANCHEZ MD Report #: [id number] Location: MED/SURG3 Room/Bed: 293 Procedure: [id number] DX/MODIFIED BA. SWALLOW Exam Date: 10/20/18 Exam Time: 1030 REPORT STATUS: Sig jazmyn PROCEDURE: X-RAY MODIFIED BARIUM SWALLOW COMPARISON: None. IND ICATION: Aspiration Radiation Details: Fluoroscopy time: 1.1 minutes Cu mulative dose: 3.06 mGy DISCUSSION: Fluoroscopic examination was performed in conjunction with speech pathology during swallowing a variety of thin and t hick liquid consistencies. Provided images demonstrate no laryngeal penetratio n or aspiration. CONCLUSION: Modified barium swallow demonstrating no l aryngeal penetration or aspiration. Please refer to the speech pathology repor t for further details. Signed by: Evan Perez MD on 10/24/2018 12:39 PM Dictated By: EVAN PEREZ MD 1239 COPY TO: JENNY SANCHEZ MD, [facility] Bedside Flutyho2711-87-17 11:20:00* Test Item Value Reference Range Interpretation Comments Bedside Glucose (test code = 61308-1) 130 70-120 Meter ID: [id number] [facility] CenterVitamin B1 Level 2018-10-22 06:37:00* Test Item Value Reference Range Interpretation Comments Vitamin B1 Level (test code = 48894-5) 276.4 66.5-200.0 Verified by repeat analysisThis test was developed and its performance garfield cteristicsdetermined by [facility]. It has not been cleared orapproved by the Food and Drug Administration.Performed at: [place] [address] [address] [place] [id number] Director: Crissy Carrington MD, Phone: [phone] [facility] Medical CenterMethylmalonic Yuvs4411-39-47 09:40:00* Test Item Value Reference Range Interpretation Comments Methylmalonic Acid (test code = 74769-0) 310 Reference Range: 0 - 378 nmol/L Disclaimer: This test was developed and its per formance characteristics determined by [facility]. It has not been cleared or appro vanesa by the Food and Drug AdministrationTesting performed by:LabMedis[employer]rp [address] [id number]. Marek Ann [facility] EdinburgPhosphorus Szdaa1504-76-83 07:08:00* Test Item Value Reference Range Interpretation Comments Phosphorus Level (test code = TIL7317) 3.2 2.3-4.7 [facility] CenterBlood Prpdywu2988-20-47 10:26:00* Test Item Value Reference Range Interpretation Comments Blood Culture (test code = 28246813) NO GROWTH AFTER 5 DAYS, FINAL REPORT [facility] CenterCHEST SINGLE (PORTABLE)2018-10-19 07:23:00 [facility] [address] [place] [address] Patient Name: ARLET ALVARENGA MR #: [id number] : 1955 Age/Sex: 63/F Req #: [id number] [facility] Physician: JENNY SANCHEZ MD, [facility] Ordered by: JENNY SANCHEZ MD Report #: [id number] Location: MED/SURG Room/Bed: [facility] Procedure: [id number] DX/CHEST SINGLE (PORTABLE) Exam Date: 10/19/18 Exam Time: 0535 REPORT STATUS: Signed EXAMINATION: CHEST SINGLE (PORTABLE) COMPARISON: Chest x-ray 10/16/2018 INDICATION: CHF DISCUSSION: LINES: Enteric tube extends p ast the diaphragm. Right IJ catheter terminates in the SVC. LUNGS: Decre ased patchy opacity within the right middle lobe and right lower lobe. No new consolidation. Pulmonary vascular congestion. No evidence of pulmonary edema. PLEURA: No pleural effusion or pneumothorax. Likely right-sided skinfold. HEART AND MEDIASTINUM: The cardiomediastinal silhouette is unremarkable. BONES AND SOFT TISSUES: No acute osseous abnormality. Extensive degenerative changes of the right shoulder. IMPRESSION: No evidence of pulmonary edema. Decreased patchy opacity within the right middle lobe and right lowe r lobe, likely atelectasis. Signed by: Dr. Kassy Kruse MD on 10/19/2018 7: 27 AM Dictated By: KASSY KRUSE MD 6 Transcribed By: BALJINDER on 10/19/18726 COPY TO: JENNY BARRIOS MD, ABI Rapid Plasma Hmcuch9849-70-22 13:41:00* Test Item Value Reference Range Interpretation Comments Rapid Plasma Reagin (test code = 49611-5) Non Reactive Non Reactive Performed at: - [facility] [id number] Director: Devonte Cassidy MD, Phone: [phone] Regional Medical CenterClumped Vftmyfasb2032-60-94 06:49:00* Test Item Value Reference Range Interpretation Comments Clumped Platelets (test code = 7796-6) NONE NONE [facility] CenterLarge Usehbmypm9701-59-40 06:49:00* Test Item Value Reference Range Interpretation Comments Large Platelets (test code = 5908-9) MODERATE [facility] CenterUrine Mldwfnvoyvkcwg8465-89-10 19:47:00* Test Item Value Reference Range Interpretation Comments Urine Immunofixation (test code = 362462892) Comment . An apparent normal immunofixation pattern.Performed at: - [facility] HospitalZgdtth0193 [facility] [address], [place], [place] [id number] Director: BENITO Gallegos MD, Phone: [phone] Regional Medical CenterFLURO ROLANDA [facility] REM 2018-10-17 08:43:00 [facility] [address] [place] [address] Patient Name: ARLET ALVARENGA MR #: [id number] : 1955 Age/Sex: 63/F Req #: [id number] Adm Physician: JENNY SANCHEZ MD, [facility] Ordered by: JENNY SANCHEZ MD Report #: [id number] Location: MED/SURG Room/Bed: [facility] Procedure: [id number] IR/[facility]O [facility] Exam Date: 10/14/18 Exam Time: 1600 REPORT S TATUS: Signed PROCEDURE: Non-tunneled central venous catheter placement Procedural Personnel Attending physician(s): Evan Perez MD Fellow physician (s): None Resident physician(s): None Advanced practice provider(s): None Pre-procedure diagnosis: Needs central venous access Post-procedure diagnos is: Same Indication: Administration of intravenous medications Additional cl inical history: None Complications: No immediate complications. IMPRES PRAVIN: Insertion of right-sided non-tunneled triple-lumen temporary central venous catheter, with tip in the expected location of the cavoatrial junction. Plan: The catheter may be used immediately. PROCEDURE SUMMARY: - Venous access with ultrasound guidance - Non-tunneled central venous catheter insertion with fluoroscopic guidance - Additional procedure(s): None PROCEDURE DETAILS: Pre-procedure Consent: Informed consent for the procedure including risks, benefits and alternatives was obtained and time-out was performed prior to the procedure. Preparation (MIPS): The site was prepared and draped using all elements of maximal sterile barrier technique including sterile gloves, steri le gown, cap, mask, large sterile sheet, sterile ultrasound probe cover, hand hygiene and cutaneous antisepsis with 2% chlorhexidine. Medical reason for site preparation exception (MIPS): Not applicable Anesthesia/sedation Lev el of anesthesia/sedation: No sedation Anesthesia/sedation administered by: In dependent trained observer under attending supervision with continuous monitor ing of the patient?s level of consciousness and physiologic status Access Local anesthesia was administered. The vessel was sonographically evaluated a nd determined to be patent. Real time ultrasound was used to visualize needle entry into the vessel and a permanent image . Vein accessed: Internal jug ular vein Access technique: Micropuncture set with 21 gauge needle Cathet er placement The access site was dilated and the catheter was placed into the vein over a wire under fluoroscopic guidance. The catheter tip location was fluoroscopically verified and a permanent image was stored.. A sterile dressing was applied. Catheter placed: [employer] triple lumen central venous catheter Catheter size (Serbian): 7 Catheter length (cm): 16 Catheter flush: Normal sa line Catheter securement technique: Non-absorbable suture Contrast Cont rast agent: None Radiation Dose Fluoroscopy time (minutes): 0.1 Refer ence air kerma (mGy): 0.37 Additional Details Additional description of procedure: None Equipment details: None Specimens removed: None Estimated blood loss (mL): Less than 10 Standardized report: SIR_CVA_NonTunneledCatheter _v3 Attestation Signer name: Evan Perez MD I attest that I was present for the entire procedure. I reviewed the stored images and agree with the rep ort as written. Signed by: Evan Perez MD on 10/17/2018 8:47 AM Dictat ed By: EVAN PEREZ MD 6 Transcribed By: BALJINDER on 10/17/18846 COPY TO: JENNY SANCHEZ MD, AB IM NON-TUNNELLED CVC CATH VLNDMEE0371-16-71 08:43:00 [place] [address] Patient Name: ARLET ALVARENGA MR #: [id number] : 1955 Age/Sex: 63/F Req #: [id number] [facility] Physician: JENNY SANCHEZ MD, [facility] Ordered by: JENNY SANCHEZ MD Report #: [id number] Location: MED/SURG Room/Bed: [facility] Procedure: [id number] IR/NON-TUNNELLED CVC CATH PLACMNT Exam Date: 10/14/18 Exam Time: 1600 REPORT S TATUS: Signed PROCEDURE: Non-tunneled central venous catheter placement Procedural Personnel Attending physician(s): Evan Perez MD Fellow physician (s): None Resident physician(s): None Advanced practice provider(s): None Pre-procedure diagnosis: Needs central venous access Post-procedure diagnos is: Same Indication: Administration of intravenous medications Additional cl inical history: None Complications: No immediate complications. IMPRES PRAVIN: Insertion of right-sided non-tunneled triple-lumen temporary central venous catheter, with tip in the expected location of the cavoatrial junction. Plan: The catheter may be used immediately. PROCEDURE SUMMARY: - Venous access with ultrasound guidance - Non-tunneled central venous catheter insertion with fluoroscopic guidance - Additional procedure(s): None PROCEDURE DETAILS: Pre-procedure Consent: Informed consent for the procedure including risks, benefits and alternatives was obtained and time-out was performed prior to the procedure. Preparation (MIPS): The site was prepared and draped using all elements of maximal sterile barrier technique including sterile gloves, steri le gown, cap, mask, large sterile sheet, sterile ultrasound probe cover, hand hygiene and cutaneous antisepsis with 2% chlorhexidine. Medical reason for site preparation exception (MIPS): Not applicable Anesthesia/sedation Lev el of anesthesia/sedation: No sedation Anesthesia/sedation administered by: In dependent trained observer under attending supervision with continuous monitor ing of the patient?s level of consciousness and physiologic status Access Local anesthesia was administered. The vessel was sonographically evaluated a nd determined to be patent. Real time ultrasound was used to visualize needle entry into the vessel and a permanent image . Vein accessed: Internal jug ular vein Access technique: Micropuncture set with 21 gauge needle Cathet er placement The access site was dilated and the catheter was placed into the vein over a wire under fluoroscopic guidance. The catheter tip location was fluoroscopically verified and a permanent image was stored.. A sterile dressing was applied. Catheter placed: Bard triple lumen central venous catheter Catheter size (Serbian): 7 Catheter length (cm): 16 Catheter flush: Normal sa line Catheter securement technique: Non-absorbable suture Contrast Cont rast agent: None Radiation Dose Fluoroscopy time (minutes): 0.1 Refer ence air kerma (mGy): 0.37 Additional Details Additional description of procedure: None Equipment details: None Specimens removed: None Estimated blood loss (mL): Less than 10 Standardized report: SIR_CVA_NonTunneledCatheter _v3 Attestation Signer name: Evan Perez MD I attest that I was present for the entire procedure. I reviewed the stored images and agree with the rep ort as written. Signed by: Evan Perez MD on 10/17/2018 8:47 AM Dictat ed By: EVAN PEREZ MD 6 Transcribed By: BALJINDER on 10/17/18846 COPY TO: JENNY SANCHEZ MD, AB IR HBEKQWB8991-05-79 08:43:00 [place] [address] Patient Name: ARLET ALVARENGA MR #: [id number] : 1955 Age/Sex: 63/F Req #: [id number] [facility] Physician: JENNY SANCHEZ MD, [facility] Ordered by: JENNY SANCHEZ MD Report #: [id number] Location: MED/SURG Room/Bed: 109 Procedure: [id number] DX/IR CONSULT Exam Date: Exam Time: REPORT STATUS: Signed PROCEDURE: Non- tunneled central venous catheter placement Procedural Personnel Attending physician(s): Evan Perez MD Fellow physician(s): None Resident physician(s ): None Advanced practice provider(s): None Pre-procedure diagnosis: Need s central venous access Post-procedure diagnosis: Same Indication: Administr ation of intravenous medications Additional clinical history: None Compli cations: No immediate complications. IMPRESSION: Insertion of right-si ded non-tunneled triple-lumen temporary central venous catheter, with tip in t he expected location of the cavoatrial junction. Plan: The catheter may be used immediately. PROCEDURE SUMMARY: - Venous access with ultrasound guidance - No n-tunneled central venous catheter insertion with fluoroscopic guidance - Toribio tional procedure(s): None PROCEDURE DETAILS: Pre-procedure Consent: Informed consent for the procedure including risks, benefits and alternatives was obtained and time-out was performed prior to the procedure. Preparation (M IPS): The site was prepared and draped using all elements of maximal sterile b arrier technique including sterile gloves, sterile gown, cap, mask, large ster ile sheet, sterile ultrasound probe cover, hand hygiene and cutaneous antiseps is with 2% chlorhexidine. Medical reason for site preparation exception (MIPS ): Not applicable Anesthesia/sedation Level of anesthesia/sedation: No se dation Anesthesia/sedation administered by: Independent trained observer under attending supervision with continuous monitoring of the patient?s level of consciousness and physiologic status Access Local anesthesia was administ ered. The vessel was sonographically evaluated and determined to be patent. Re al time ultrasound was used to visualize needle entry into the vessel and a pe rmanent image . Vein accessed: Internal jugular vein Access technique: Mi cropuncture set with 21 gauge needle Catheter placement The access site w as dilated and the catheter was placed into the vein over a wire under fluoro scopic guidance. The catheter tip location was fluoroscopically verified and a permanent image was stored.. A sterile dressing was applied. Catheter plac ed: [employer] triple lumen central venous catheter Catheter size (Serbian): 7 Cath eter length (cm): 16 Catheter flush: Normal saline Catheter securement techn ique: Non-absorbable suture Contrast Contrast agent: None Radiation Dose Fluoroscopy time (minutes): 0.1 Reference air kerma (mGy): 0.37 Additional Details Additional description of procedure: None Equipment deta ils: None Specimens removed: None Estimated blood loss (mL): Less than 10 Standardized report: SIR_CVA_NonTunneledCatheter_v3 Attestation Signer na me: Evan Perez MD I attest that I was present for the entire procedure. I rev iewed the stored images and agree with the report as written. Signed by: Evan Perez MD on 10/17/2018 8:47 AM Dictated By: EVAN PEREZ MD Electronic ally Signed By: EVAN PEREZ MD on 10/17/18846 Transcribed By: BALJINDER on 10/17 COPY TO: JENNY SANCHEZ MD, ABIM GUIDANCE FOR VASCULAR [id number] 08:43:00 [place] [address] Patient Name: ARLET ALVARENGA MR #: [id number] : 1955 Age/Sex: 63/F Req #: [id number] Adm Physician: JENNY SANCHEZ MD, ABIM Ordered by: JENNY SANCHEZ MD Report #: [id number] Location: MED/SURG Room/Bed: [facility] Procedure: [id number] US/US GUIDANCE FOR VASCULAR ACCES Exam Date: 10/14/18 Exam Time: 1637 REPORT S TATUS: Signed PROCEDURE: Non-tunneled central venous catheter placement Procedural Personnel Attending physician(s): Evan Perez MD Fellow physician (s): None Resident physician(s): None Advanced practice provider(s): None Pre-procedure diagnosis: Needs central venous access Post-procedure diagnos is: Same Indication: Administration of intravenous medications Additional cl inical history: None Complications: No immediate complications. IMPRES PRAVIN: Insertion of right-sided non-tunneled triple-lumen temporary central venous catheter, with tip in the expected location of the cavoatrial junction. Plan: The catheter may be used immediately. PROCEDURE SUMMARY: - Venous access with ultrasound guidance - Non-tunneled central venous catheter insertion with fluoroscopic guidance - Additional procedure(s): None PROCEDURE DETAILS: Pre-procedure Consent: Informed consent for the procedure including risks, benefits and alternatives was obtained and time-out was performed prior to the procedure. Preparation (MIPS): The site was prepared and draped using all elements of maximal sterile barrier technique including sterile gloves, steri le gown, cap, mask, large sterile sheet, sterile ultrasound probe cover, hand hygiene and cutaneous antisepsis with 2% chlorhexidine. Medical reason for site preparation exception (MIPS): Not applicable Anesthesia/sedation Lev el of anesthesia/sedation: No sedation Anesthesia/sedation administered by: In dependent trained observer under attending supervision with continuous monitor ing of the patient?s level of consciousness and physiologic status Access Local anesthesia was administered. The vessel was sonographically evaluated a nd determined to be patent. Real time ultrasound was used to visualize needle entry into the vessel and a permanent image . Vein accessed: Internal jug ular vein Access technique: Micropuncture set with 21 gauge needle Cathet er placement The access site was dilated and the catheter was placed into the vein over a wire under fluoroscopic guidance. The catheter tip location was fluoroscopically verified and a permanent image was stored.. A sterile dressing was applied. Catheter placed: Bard triple lumen central venous catheter Catheter size (Serbian): 7 Catheter length (cm): 16 Catheter flush: Normal sa line Catheter securement technique: Non-absorbable suture Contrast Cont rast agent: None Radiation Dose Fluoroscopy time (minutes): 0.1 Refer ence air kerma (mGy): 0.37 Additional Details Additional description of procedure: None Equipment details: None Specimens removed: None Estimated blood loss (mL): Less than 10 Standardized report: SIR_CVA_NonTunneledCatheter _v3 Attestation Signer name: Evan Perez MD I attest that I was present for the entire procedure. I reviewed the stored images and agree with the rep ort as written. Signed by: Evan Perez MD on 10/17/2018 8:47 AM Dictat ed By: EVAN PEREZ MD 6 Transcribed By: BALJINDER on 10/17/18846 COPY TO: JENNY SANCHEZ MD, AB CHEST SINGLE (PORTABLE)2018-10-16 06:04:00 [place] [address] Patient Name: ARLET ALVARENGA MR #: [id number] : 1955 Age/Sex: 63/F Req #: [id number] Adm Physician: JENNY SANCHEZ MD, [facility] Ordered by: JENNY SANCHEZ MD Report #: [id number] Location: MED/SURG Room/Bed: [facility] Procedure: [id number] [id number] DX/CHEST SINGLE (PORTABLE) Exam Date: 10/16/18 Exam Time: 0530 REPORT STATUS: Signed EXAMINATION: CHEST SINGLE (PORTABLE) COMPARISON: Chest x-ray 10/15/2018 INDICATION: Pneumonia pneumonia [id number] 05 DI SCUSSION: Frontal view of the chest obtained at 0539 hours. HEART AND MED IASTINUM: The cardiomediastinal silhouette is unremarkable. LINES: Ente ananda tube extends past the diaphragm. Right IJ catheter terminates in the SVC. LUNGS: Right middle lobe consolidation/atelectasis is similar. Pulmonary v eins are prominent and similar in appearance. No new findings in the left lung . PLEURA: No pleural effusion or pneumothorax. BONES AND SOFT TISSUES : Osseous structures are stable. The soft tissues are normal. IMPRESS ION: No change in right middle lobe atelectasis or infiltrate. Support device s as described above. No new findings. Signed by: Dr. Emerson Corea MD on 10/16/2018 6:08 AM Dictated By: EMERSON COREA MD 7 Transcribed By: BALJINDER on 09/26 COPY TO: JENNY SANCHEZ MD, ABI Vitamin B12 Level 2018-10-15 07:00:00* Test Item Value Reference Range Interpretation Comments Vitamin B12 Level (test code = 25787-9) 1205 213-816 [facility]2019-09-[facility] 07:00:00* Test Item Value Reference Range Interpretation Comments Folate (test code = 2284-8) 33.5 7.0-15.4 [facility] CenterThyroid Stimulating Hormone (TSH) 2018-10-15 06:55:00* Test Item Value Reference Range Interpretation Comments Thyroid Stimulating Hormone (TSH) (test code = 32336-3) 1.260 0.350-4.940 [facility] CenterCHES SINGLE (PORTABLE)2018-10-15 06:16:00 [facility] [address] [place] [address] Patient Name: ARLET ALVARENGA MR #: [id number] : 1955 Age/Sex: 63/F Req #: [id number] Adm Physician: JENNY SANCHEZ MD, [facility] Ordered by: JENNY SANCHEZ MD Report #: [id number] Location: MED/SURG Room/Bed: [facility] Procedure: [id number] 907-0004 DX/CHEST SINGLE (PORTABLE) Exam Date: 10/15/18 Exam Time: 0550 REPORT STATUS: Signed ADDENDUM #1 Under the section entitled "LINE S", the second sentence should read: "Right IJ catheter terminates in the SVC without pneumothorax." Signed by: Dr. Emerson Corea MD on 10/16/2018 6:0 7 AM ORIGINAL REPORT EXAMINATION: CHEST SINGLE (PORTAB LE) COMPARISON: 10/13/2018 INDICATION: Interstitial edema screen [facility] [id number] DISCUSSION: Frontal view of the chest obtained at 0557 hours. HEART AND MEDIASTINUM: The heart is normal in size L DU: Enteric tube extends past the diaphragm. Left IJ catheter terminates in the SVC without pneumothorax. LUNGS: New right middle lobe consolidation or atelectasis. Left lung is clear. Pulmonary vascular markings are normal PLEURA: No large effusions. No pneumothorax. BONES AND SOFT TISSUES: St able severe degenerative changes of the right shoulder. The soft tissues are n ormal. IMPRESSION: Right middle lobe atelectasis or pneumonia. Suppor t devices as described above. No pneumothorax. Signed by: Dr. Emerson Corea MD on 10/15/2018 6:20 AM Dictated By: EMERSON COREA MD Electro nically Signed By: EMERSON COREA MD on 10/16/18606 Transcribed By: LIMA Cannon on 10/15/18619 COPY TO: JENNY SANCHEZ MD, SALEEM B-Type Natriuretic Lforpju9414-83-96 06:11:00* Test Item Value Reference Range Interpretation Comments B-Type Natriuretic Peptide (test code = 39812-2) 973.2 0-100 [facility] [id number] 20:03:00 [place] [address] Patient Name: ARLET ALVARENGA MR #: [id number] : 1955 Age/Sex: 63/F Req #: [id number] Adm Physician: JENNY SANCHEZ MD, ABIM Ordered by: JESSICA CARRASCO M.D. Report #: [id number] Location: MED/SURG Room/Bed: [facility] Procedu re: [id number] CT/CT BRAIN WO Exam Date: 10/14/18 Mane ball Time: 1939 REPORT STATUS: Signed EXAMINATION: Head CT without contrast. HISTORY:Altered mental statu s. COMPARISON:None. TECHNIQUE: Multidetector axial images were obtained f rom the foramen magnum to the vertex without contrast. The images were reconst ructed using brain and bone algorithms. Thin section brain images were reform atted into coronal and sagittal planes. Dose modulation, iterative reconstru ction, and/or weight based adjustment of the mA/kV was utilized to reduce the radiation dose to as low as reasonably achievable. Intravenous contrast: None IMAGE QUALITY: Suboptimal evaluation particularly at the level of sk ull base and posterior fossa structures due to streak artifacts. FINDINGS : Skull/scalp: No lytic or blastic. lesions. No surgical changes. P arenchyma: Nonspecific few, scattered supratentorial white matter hypodensity are likely related to small vessel ischemic changes. Questionable focal hypode nsity in the mela may represent chronic lacunar infarct or an artifact. No a cute hemorrhage, mass or acute major vascular territorial infarct. Arterie s: No density suggestive of thrombosis. Dural sinuses: No abnormal dens ity suggestive of thrombosis. Ventricles: No hydrocephalus or displacemen t. Extra-axial spaces: No abnormal density. Brain volume: Mild gen eralized cerebral volume loss. Craniocervical junction: No mass, Chiari ma lformation, or basilar invagination. Sella: No mass. Paranasal/ma stoid sinuses: Imaged portions unremarkable. IMPRESSION: No acute intr acranial abnormality. Mild generalized cerebral volume loss and minimal sup ratentorial white matter microvascular ischemic changes. Chronic lacunar infarct vs an artifact in the mela. Signed by: Dr. Katarzyna Fuentes M.D. on 10/14/2018 8:08 PM Dictated By: KATARZYNA FUENTES MD 07 Transcribed By: BALJINDER on 10/14/18 200 8 COPY TO: JESSICA CARRASCO MD Hepatitis C Rlxiitmt4016-43-27 14:26:00* Test Item Value Reference Range Interpretation Comments Hepatitis C Antibody (test code = 20022-4) >11.0 0.0-0.9 Negative: < 0.8 Indeterminate: 0.8 - 0.9 Positive: > 0.9 The CDC recommends that a positive HCV antibody result be followed up with a HCV Nucleic Acid Amplification test (567324).Performed at: [address] [id number] Director: Devonte Cassidy MD, Phone: [phone] Regional Medical CenterHepatitis A IgM Antibody 2018-10-14 14:25:00* Test Item Value Reference Range Interpretation Comments Hepatitis A IgM Antibody (test code = 06787-2) Negative Negativ e [facility] CenterHepatiun[facility] B Surface Nohhreg5393-31-97 14:25:00* Test Item Value Reference Range Interpretation Comments Hepatitis B Surface Antigen (test code = 5196-1) Negative Negat evelyn [facility] B Core IgM Cwpvqjit8653-65-40 14:25:00* Test Item Value Reference Range Interpretation Comments Hepatitis B Core IgM Antibody (test code = 94501-3) Negative Ne gative [facility] CenterABDOMEN-1VIEW (KUB)2018-10-14 00:03:00 [place] [address] Patient Name: ARLET ALVARENGA MR #: [id number] : 1955 Age/Sex: 63/F Req #: [id number] Adm Physician: JENNY SANCHEZ MD, [facility] Ordered by: JENNY SANCHEZ MD Report #: [id number] Location: MED/SURG Room/Bed: [facility] Procedure: [id number] DX/ABDOMEN-1VIEW (KUB) Exam Date: 10/13/18 Exam Time: 2319 REPORT STATUS: Sign ed Abdomen/KUB INDICATION: NGT PLACEMENT 20181013 Y COMPARISON: CT abdomen/pelvis 10/11/2014. FINDINGS: Portable, supine im age obtained at 2322 hours. Medical Devices: Nasogastric tube terminates in the proximal stomach Bowel: Unremarkable bowel gas pattern. Mild gaseous d istention of the large bowel without dilatation. No pneumatosis. Free air : None Abdominal calcifications: None Organomegaly: None Lung ba ses: Clear Bones: Unremarkable IMPRESSION: Enteric tube as descri bed above. Unremarkable bowel gas pattern. Signed by: Dr. Emerson Corea MD on 10/14/2018 12:05 AM Dictated By: EMERSON COREA MD Electronical ly Signed By: EMERSON COREA MD on 10/14/184 Transcribed By: BALJINDER on 10/14/184 COPY TO: JENNY SANCHEZ MD, [facility] Arterial Blood [id number] 14:48:00* Test Item Value Reference Range Interpretation Comments Arterial Blood pH (test code = 2744-1) 7.54 7.31-7.41 [facility] CenterAr[facility]ial Blood Partial Pressure CO2 2018-10-13 14:48:00* Test Item Value Reference Range Interpretation Comments Arterial Blood Partial Pressure CO2 (test code = 2018-09) 27 41-51 [facility] CenterArterial Blood Partial Pressure O2 2018-10-13 14:48:00* Test Item Value Reference Range Interpretation Comments Arterial Blood Partial Pressure O2 (test code = 2018-09) 71 80-105 [facility] CenterAr[facility]ial Blood [id number] 14:48:00* Test Item Value Reference Range Interpretation Comments Arterial Blood HCO3 (test code = 1960-4) 23 23-28 [facility] CenterAr[facility]ial Blood Base Johkli0394-78-65 14:48:00* Test Item Value Reference Range Interpretation Comments Arterial Blood Base Excess (test code = 1925-7) 0.0 -2-3 [facility] CenterAr[facility]ial Blood Oxygen Saturation 2018-10-13 14:48:00* Test Item Value Reference Range Interpretation Comments Arterial Blood Oxygen Saturation (test code = 2708-6) 96.0 95-98 [facility] CenterFiO22019-09-05 14:48:00* Test Item Value Reference Range Interpretation Comments FiO2 (test code = FiO2) 24 NASAL CANNULA 1LDREW FROM LEFT RADIALCHI [facility] CHEST SINGLE (PORTABLE)2018-10-13 14:25:00 [place] [address] Patient Name: ARLET ALVARENGA MR #: [id number] : 1955 Age/Sex: 63/F Req #: [id number] Adm Physician: JENNY SANCHEZ MD, SALEEM Ordered by: JENNY SANCHEZ MD Report #: [id number] Location: MED/SURG Room/Bed: [facility] Procedure: 0 905-0037 DX/CHEST SINGLE (PORTABLE) Exam Date: Exam Time: REPORT STATUS: Signed EX AMINATION: CHEST SINGLE (PORTABLE) INDICATION: Shortness of breath COMPARISON: None FINDINGS: LINES/TUBES:EKG leads overlie the ch est. LUNGS:The lung volumes are low. There is perihilar fullness and indist inctness of the pulmonary vasculature. No focal consolidation. PLEURA:No pleural effusion or pneumothorax. MEDIASTINUM:The cardiomediastinal silhoue tte appears normal in size and shape. BONES/SOFT TISSUES:Chronic deformity of the right humeral head and severe degenerative changes of the right glenohu meral joint. ABDOMEN:No free air under the diaphragm. IMPRESSION: L ow lung volumes with mild pulmonary interstitial edema. Signed by: Evan Perez MD on 10/13/2018 2:27 PM Dictated By: EVAN PEREZ MD Electronically Sig jazmyn By: EVAN PEREZ MD on 10/13/181426 Transcribed By: BALJINDER on 10/13/181426 COPY TO: JENNY SANCHEZ MD, ABI HIV (1&2) Xmfijmpk2506-31-96 13:38:00* Test Item Value Reference Range Interpretation Comments HIV (1&2) Antibody (test code = 09929-2) NON-REACTIVE NONREACTIVE [facility] CenterHIV P24 Obzfygf6942-72-81 13:38:00* Test Item Value Reference Range Interpretation Comments HIV P24 Antigen (test code = HIV P24 Antigen) NON-REACTIVE NONREACT EVELYN [facility] CenterUS RENAL RETROPERITONEAL [id number] 19:45:00 [place] [address] Patient Name: ARLET ALVARENGA MR #: [id number] : 1955 Age/Sex: 63/F Req #: [id number] Adm Physician: JENNY SANCHEZ MD, ABI Ordered by: JANEY STARK MD, MD Report #: [id number] Location: MED/SURG Room/Bed: [facility] Procedure: US/US RENAL RETROPERITONEAL COMP Exam Date: 10/12/18 Exam Time: 1819 REPORT STA TUS: Signed EXAMINATION: Renal ultrasound. CLINICAL HISTORY :Acute kidne y insufficiency COMPARISON: 10/11/2018 TECHNIQUE: Grayscale and color Do ppler evaluation of the kidneys and bladder was performed in transverse and lo ngitudinal planes. DISCUSSION: RIGHT KIDNEY: The right kidney measure s 11.7 cm in length and shows normal echogenicity. No hydronephrosis, shadowi ng calculi or solid mass lesions. LEFT KIDNEY: The left kidney measures 9 .7 cm in length and shows normal echogenicity. No hydronephrosis, shadowing c alculi or solid mass lesions. BLADDER: Bailey within the bladder. Asci candi. IMPRESSION: Normal renal echogenicity. No obstructio n. Ascites. Signed by: Dr. Reshma William M.D. on 2018 7:52 PM Dictated By: RESHMA WILLIAM MD 51 Transcribed By: BALJINDER on 10/12/181951 COPY TO: JANEY STARK Urine Random Ajjmyp3976-81-88 13:04:00* Test Item Value Reference Range Interpretation Comments Urine Random Sodium (test code = 2955-3) < 20 [facility] CenterUrine Rdkaatrblk1074-95-51 13:04:00* Test Item Value Reference Range Interpretation Comments Urine Creatinine (test code = 2161-8) 92.33 47-110 [facility] CenterUrine Transitional Epithelial Cells 2018-10-11 22:56:00* Test Item Value Reference Range Interpretation Comments Urine Transitional Epithelial Cells (test code = 8249-5) MODERATE NONE [facility] CenterUrine Renal Epithelial [place]0551-58-68 22:56:00* Test Item Value Reference Range Interpretation Comments Urine Renal Epithelial Cells (test code = 47663-7) FEW NON E [facility] CenterCT ABDOMEN/PELVIS [id number] 22:42:00 [facility] [address] [place] [address] Patient Name: ARLET ALVARENGA MR #: [id number] : 1955 Age/Sex: 63/F Req #: [id number] Adm Physician: Ordered by: MELISSA CHIN MD Report #: [id number] Location: ER Room/Bed: Procedure: 36 CT/CT ABDOMEN/PELVIS WO Exam Date: 10/11/18 Exam Time: 2152 REPORT STATUS: Signed CT Abdomen and Pelvis without contrast INDICATION: rectal prolapse, ev al for intra abdominal mass 20181011 Y TECHNIQUE: Thin collim ation axial images obtained from the diaphragm to the level of the pubic symph ysis without nonionic intravenous contrast. Dose reduction techniques used : Automated exposure control, adjustment of the mAs and/or kVp according to pa tient size, standardized low-dose protocol, and/or iterative reconstruction te chnique. RADIATION DOSE: Total DLP: 413.8 mGy*cm Estimated ef fective dose: (DLP x 0.015 x size factor) mSv CTDIvol has been reviewed. It is below the limits set by the Radiation Protocol Committee (RPC). COM PARISON: Chest x-ray 2141 hours. ABDOMEN FINDINGS: Lung Bases: Small bilateral pleural effusions, right greater than left and bibasilar atelectasis . Small hiatal hernia with fluid adjacent to the distal esophagus. The heart i s normal in size. Liver: Cirrhosis. No mass on these unenhanced images. Gallbladder: Present and contains a small amount of sludge. No ductal dilat ation. Pancreas: Normal attenuation without mass. Spleen: Normal size without mass. Adrenal Glands: Mild thickening of the right adrenal gland wi thout mass. Left adrenal gland is poorly visualized. Kidneys: Right: P unctate calculus in the lower pole.. No cortical mass or hydronephrosis Left: No renal calculus. No cortical mass or hydronephrosis Lymph Nodes: No lymphadenopathy. Aorta: Normal in diameter. Multiple abdominal radha ices PELVIS FINDINGS: Peritoneum/retroperitoneum: Moderate amount of abd ominopelvic ascites. Bowel: Stomach: Collapsed with prominent gastric w alls. Infiltrative mass cannot be excluded. Small Bowel: Normal in calibe r with normal wall thickness. Large Bowel: Mild to moderate burden of stool th roughout. No dilatation or significant mural thickening. Appendix: Normal. March pelvic floor laxity with inferior displacement of the rectum and per itoneum along with ascitic fluid. Bladder: Normal in position and appears n ormal. Ureters: No ureteral dilatation. Uterus: Present and atrophic w ith downward displacement approximately 4.5 cm inferior to the pubococcygeal l ine. Lymph nodes: No enlarged pelvic or inguinal lymph nodes. No enlarged l ymph nodes in the small bowel mesentery Bones: Mild to moderate degenerat evelyn changes of the spine. There is wedging of the T12 vertebral body. The spin al canal is patent. No focal osseous lesions. Soft tissues: Mild diffuse white bcutaneous edema. IMPRESSION: 1. Marked pelvic floor laxity with uter ine and rectal prolapse. No evidence of bowel obstruction. 2. Cirrhosis and suspicion of portal hypertension with moderate abdominopelvic ascites. 3. Diffuse gastric wall thickening. This could either represent an infiltrative gastric mass or the result of numerous varices. Recommend correlation with endoscopy. 4. Bilateral pleural effusions and bibasilar atelectasis. 5. Tiny nonobstructing right intrarenal calculus. Signed by: Dr. Emerson Corea MD on 10/11/2018 10:51 PM Dictated By: EMERSON COREA MD Elect ronically Signed By: EMERSON COREA MD on 10/11/182250 Transcribed By: TOM ANTONY on 10/11/182250 COPY TO: MELISSA CHIN MD CHEST SINGLE (PORTABLE)2018-10-11 22:14:00 [place] [address] Patient Name: ARLET ALVARENGA MR #: [id number] : 1955 Age/Sex: 63/F Req #: [id number] Adm Physician: Ordered by: MELISSA CHIN MD Report #: [id number] Location: ER Room/Bed: Procedure: 71 DX/CHEST SINGLE (PORTABLE) Exam Date: 10/11/18 Ex am Time: 2144 REPORT STATUS: Signed EXAMINATION: CHEST SINGLE (PORTABLE) COMPARISON: None INDICAT ION: Shortness of breath, septic sob 20181011 Y DISCUSS ION: Frontal view of the chest obtained at 2141 hours. The entire right hemith orax was not included on the image. HEART AND MEDIASTINUM: The cardiomed iastinal silhouette is unremarkable. LINES: None. LUNGS: Right mid dle lobe and right basilar airspace opacities. Left lung is clear. No intersti tial edema PLEURA: No pleural effusion or pneumothorax. BONES AND SOF T TISSUES: There are degenerative changes of the shoulders, right greater adelso n left. The soft tissues are normal. IMPRESSION: Right middle lobe an d lower lobe airspace opacities suggestive of pneumonia. Signed by: Dr. Ozzie Corea MD on 10/11/2018 10:15 PM Dictated By: EMERSON COREA MD 14 Transcribed B y: BALJINDER on 10/11/182214 COPY TO: MELISSA CHIN MD
--- OUTSIDE RECORDS SUMMARY | 2019-06-25 20:54 | XMS REPORT | Clinical Summary ---
Author Author ANDRAE [facility] Organization [facility] Address Unknown Phone Unavailable Care Team Providers Care [employer] Name Role Phone PCP Unavailable Allergies No Known Allergies Medications End Date Status Medication Sig Dispensed Refills Start Date Active ferrous sulfate 325 (65 TAKE 1 TABLET 2 FE) MG tablet BY MOUTH 0 EVERY DAYNOT COVERED Active hyoscyamine (LEVSIN/SL) TAKE 1 TO 2 0 0.125 mg SL tablet TABLETS UNDER 0 THE TONGUE EVERY 4 HOURS NEEDED FOR SECRETIONS Active morphine (MSIR) 15 MG Take 15 mg by 0 05/11/19 2 tablet mouth every 6 0 (six) hours as needed. Active promethazine (PHENERGAN) TAKE 1 TABLET 0 05/07 25 MG tablet BY MOUTH OR 0 RECTALLY EVERY 4 TO 6 HOURS NEEDED FOR NAUSEA AND VOMITING Active spironolactone 1 TABLET WITH 0 (ALDACTONE) 50 MG tablet FOOD EVERY 12 0 HOURS ORALLY 90 DAYS Active lactulose (CHRONULAC) 10 Take 20 g by 0 gram/15 mL (15 mL) mouth 3 solution (three) times daily. Active rifAXIMin 550 mg Tab Take 550 mg 0 by mouth 2 (two) times daily. Active furosemide (LASIX) 40 MG Take 1 tablet 0 05/22 tablet (40 mg total) 0 by mouth daily. 2020 Active doxycycline (MONODOX) 100 Take 1 90 capsule 0 MG capsule capsule (100 0 mg total) by mouth every 12 (twelve) hours. 05/23/2019 Discontinued furosemide (LASIX) 40 MG Take 40 mg by 0 04/16 tablet mouth every 0 12 (twelve) hours. 05/23/2019 Discontinued sulfamethoxazole-trimetho Take 1 tablet 10 04/08 prim (BACTRIM DS) 800-160 by mouth 2 0 mg per tablet (two) times daily. 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 General Internal Ri dicine - Encounter 05/23/2019 Trista Park MD 05/20/2019 Outside Orders Radiology 05/20/2019 Travel after 06/24/2018 Social History Date Tobacco Use Types Packs/Day Years Used Former Smoker Sex Assigned at Date Recorded Not on file Industry Job Start Date Occupation Not on file Not on file Not on file Travel End Travel History Travel Start No recent travel history available. Last Filed Vital Signs Time Taken Vital Sign Reading 05/23/2019 12:00 PM CDT Blood Pressure 157/75 05/23/2019 12:00 PM CDT Pulse 104 05/23/2019 12:00 PM CDT Temperature 36.2 C (97.2 F) 05/23/2019 12:00 PM CDT Respiratory Rate 18 05/23/2019 12:00 PM CDT Oxygen Saturation 99% - Inhaled Oxygen - Concentration 05/20/2019 1:04 AM CDT Weight 53.5 kg (118 lb) 05/20/2019 1:04 AM CDT Height 162.6 cm (5' 4") 05/20/2019 1:04 AM CDT Body Mass Index 20.25 Plan of Treatment Not on file Procedures Comments Procedure Name Priority Date/Time Associated Diag nosis RHYTHM STRIP - SCAN 06/14/2019 12:40 PM CDT TRANSFUSION SERVICE 06/14/2019 REPORT - SCAN 12:40 PM CDT REPORT OF PROCEDURE - 06/14/2019 ENDOSCOPY SCAN 12:40 PM CDT PERIPHERAL VASCULAR 06/14/2019 REPORT - SCAN 12:40 PM CDT RHYTHM STRIP - SCAN 06/14/2019 12:40 PM CDT (CELLAVISION MANUAL DIFF) Routine 05/23/2019 4:32 AM CDT CBC W/PLT COUNT & AUTO Routine 05/23/2019 DIFFERENTIAL 4:32 AM CDT B-TYPE NATRIURETIC FACTOR Routine 05/23/2019 (BNP) 4:32 AM CDT CALCIUM, IONIZED Routine 05/23/2019 4:32 AM CDT CBC W/PLT COUNT & AUTO Routine 05/23/2019 DIFFERENTIAL 4:32 AM CDT PROTHROMBIN TIME/INR Routine 05/23/2019 4:32 AM CDT COMPREHENSIVE METABOLIC Routine 05/23/2019 PANEL 4:32 AM CDT MAGNESIUM Routine 05/23/2019 4:32 AM CDT PHOSPHORUS Routine 05/23/2019 4:32 AM CDT (CELLAVISION MANUAL DIFF) Routine 2019 4:44 PM CDT CBC W/PLT COUNT & AUTO Routine 2019 DIFFERENTIAL 4:44 PM CDT CBC W/PLT COUNT & AUTO Routine 2019 DIFFERENTIAL 4:44 PM CDT XR CHEST 1 VIEW Routine 2019 PORTABLE/BEDSIDE 2:24 PM CDT PROTHROMBIN TIME/INR Routine 2019 5:43 AM CDT COMPREHENSIVE METABOLIC Routine 2019 PANEL 5:43 AM CDT MAGNESIUM Routine 2019 5:43 AM CDT PHOSPHORUS Routine 2019 5:43 AM CDT CBC (HEMOGRAM ONLY) Routine 2019 5:43 AM CDT VANCOMYCIN LEVEL, TROUGH Timed 05/21/2019 5:32 PM CDT VENOUS DOPPLER ARMS Routine 05/21/2019 BILATERAL 4:11 PM CDT MITOCHONDRIAL AB TITER Routine 05/21/2019 3:12 PM CDT MITOCHONDRIAL AB SCREEN Routine 05/21/2019 3:12 PM CDT AJITH TITER AND PATTERN Routine 05/21/2019 3:12 PM CDT ACTIN (SMOOTH MUSCLE) Routine 05/21/2019 ANTIBODY, IGG 3:12 PM CDT ANTI-MITOCHONDRIAL AB, Routine 05/21/2019 REFLEX TO TITER 3:12 PM CDT ALPHA FETOPROTEIN (AFP), Routine 05/21/2019 TUMOR MARKER 3:12 PM CDT [id number], Routine 05/21/2019 SERUM 3:12 PM CDT CERULOPLASMIN Routine 05/21/2019 3:12 PM CDT LACTIC ACID, VENOUS Routine 05/21/2019 3:12 PM CDT PROTHROMBIN TIME/INR Routine 05/21/2019 3:12 PM CDT COMPREHENSIVE METABOLIC Routine 05/21/2019 PANEL 3:12 PM CDT MAGNESIUM Routine 05/21/2019 3:12 PM CDT PHOSPHORUS Routine 05/21/2019 3:12 PM CDT CBC (HEMOGRAM ONLY) Routine 05/21/2019 3:12 PM CDT FERRITIN Routine 05/21/2019 3:12 PM CDT IRON, TIBC, % SAT. Routine 05/21/2019 (WITHOUT FERRITIN) 3:12 PM CDT IMMUNOGLOBULIN G (IGG) Routine 05/21/2019 3:12 PM CDT ANTI-NUCLEAR ANTIBODY Routine 05/21/2019 (AJITH) 3:12 PM CDT HEPATITIS B SURFACE Routine 05/21/2019 ANTIGEN 3:12 PM CDT HEPATITIS B CORE Routine 05/21/2019 ANTIBODY, IGM 3:12 PM CDT HEPATITIS B CORE Routine 05/21/2019 ANTIBODY, TOTAL 3:12 PM CDT HEPATITIS B SURFACE Routine 05/21/2019 ANTIBODY 3:12 PM CDT HEPATITIS A ANTIBODY, IGG Routine 05/21/2019 3:12 PM CDT BLOOD CULTURE Routine 05/21/2019 IDENTIFICATION PANEL 3:11 PM CDT BLOOD CULTURE STAT 05/21/2019 3:11 PM CDT IR CV ACCESS FLUORO STAT 05/21/2019 2:11 PM CDT CREATININE, RANDOM URINE JERRI 05/20/2019 4:48 PM CDT OSMOLALITY, URINE JERRI 05/20/2019 4:48 PM CDT RAPID DRUG SCREEN, URINE JERRI 05/20/2019 4:48 PM CDT SODIUM, RANDOM URINE JERRI 05/20/2019 4:48 PM CDT US ABDOMINAL WITH DOPPLER STAT 05/20/2019 3:25 PM CDT OSMOLALITY, SERUM Routine 05/20/2019 10:51 AM CDT XR KNEE RIGHT 1 OR 2 Routine 05/20/2019 VIEWS 9:35 AM CDT LACTIC ACID, VENOUS STAT 05/20/2019 6:56 AM CDT HEPATITIS C PCR, Routine 05/20/2019 QUANTITATIVE 6:[address] LOWER EXTREMITY WITH & STAT 05/20/2019 WITHOUT IV CONTRAST RIGHT 6:51 AM CDT BASIC METABOLIC PANEL (7) STAT 05/20/2019 6:03 AM CDT TYPE AND SCREEN, Routine 05/20/2019 AUTOMATED 6:01 AM CDT HEPATIC FUNCTION PANEL Add-On 05/20/2019 5:13 AM CDT BASIC METABOLIC PANEL (7) STAT 05/20/2019 5:13 AM CDT LACTIC ACID, VENOUS STAT 05/20/2019 5:09 AM CDT BODY FLUID CRYSTALS AP Routine 05/20/2019 4:31 AM CDT BODY FLUID CELL COUNT STAT 05/20/2019 WITH DIFFERENTIAL 4:31 AM CDT ANAEROBIC CULTURE STAT 05/20/2019 4:30 AM CDT BODY FLUID CULTURE + GRAM STAT 05/20/2019 STAIN 4:30 AM CDT C-REACTIVE PROTEIN STAT 05/20/2019 4:17 AM CDT BLOOD CULTURE Routine 05/20/2019 IDENTIFICATION PANEL 4:17 AM CDT BLOOD CULTURE STAT 05/20/2019 4:17 AM CDT BLOOD CULTURE STAT 05/20/2019 4:17 AM CDT (CELLAVISION MANUAL DIFF) STAT 05/20/2019 4:04 AM CDT CBC W/PLT COUNT & AUTO STAT 05/20/2019 DIFFERENTIAL 4:04 AM CDT BASIC METABOLIC PANEL (7) STAT 05/20/2019 4:04 AM CDT CBC W/PLT COUNT & AUTO STAT 05/20/2019 DIFFERENTIAL 4:04 AM CDT after 06/24/2018 Results * RHYTHM STRIP - SCAN (06/14/2019 12:40 PM CDT) Only the most recent of 2 results within the time period is included. Narrative Performed At This result has an attachment that is n ot available. * TRANSFUSION SERVICE REPORT - SCAN (06/14/2019 12:40 PM CDT) Narrative Performed At This result has an attachment that is n ot available. * EKG-SCANNED (06/14/2019 12:40 PM CDT) Narrative Performed At This result has an attachment that is n ot available. * PERIPHERAL VASCULAR REPORT - SCAN (06/14/2019 12:40 PM CDT) Narrative Performed At This result has an attachment that is n ot available. * Manual Differential (05/23/2019 4:32 AM CDT) Only the most recent of 3 results within the time period is included. % Neutros 87 % [facility] % Lymphs 5 % [facility] % Monos 3 % [facility] % Myelo 1 (H) 0 - 0 % [facility] % Bands 4 0 - 10 % [facility] # Neutros 13.83 (H) 1.56 - 6.13 K/ul [facility] # Lymphs 0.80 (L) 1.18 - 3.74 K/ul [facility] # Monos 0.48 (H) 0.24 - 0.36 K/uL [facility] # Myelo 0.16 (H) 0.00 - 0.00 K/uL [facility] # Bands 0.64 0.00 - 0.80 K/uL [facility] Total Counted 100 [facility] Platelet Morphology Normal [facility] Smudge Cells Present [facility] Anisocytosis 1+ few [facility] Macrocytes 1+ few [facility] Poikilocytes 2+ moderate [facility] Schistocytes 1+ few [facility] Ovalocytes 1+ few [facility] Tear Drop Cells 1+ few [facility] Ilene Cells 1+ few [facility] Platelet Conc Decreased [facility] Specimen Blood Narrative Performed At Child Care Leader YADY - Milly Argueta [facility] User comments: [facility] Slide comments: Performing Organization Address City/[facility] [place] Ph one Number [place] [address] [phone] [place] [address] * Calcium, Ionized (05/23/2019 4:32 AM CDT) Calcium, Ion 1.03 (L) 1.12 - 1.27 mmol/L [facility] pH, Blood 7.51 [facility] Specimen Blood Performing Organization Address City/[facility] Ph one Number [place] [address] [address] [phone] [place] [address] * CBC with platelet count + automated diff (05/23/2019 4:32 AM CDT) Only the most recent of 3 results within the time period is included. WBC 15.9 (H) 3.5 - 10.5 K/L [facility] RBC 2.51 (L) 3.93 - 5.22 M/L [facility] Hemoglobin 7.7 (L) 11.2 - 15.7 GM/DL [facility] Hematocrit 23.7 (L) 34.1 - 44.9 % [facility] MCV 94.4 79.4 - 94.8 fL [facility] MCH 30.7 25.6 - 32.2 pg [facility] MCHC 32.5 32.2 - 35.5 GM/DL [facility] RDW 16.9 (H) 11.7 - 14.4 % [facility] Platelets 81 (L) 150 - 450 K/CU MM [facility] MPV 11.1 9.4 - 12.3 fL [facility] nRBC 0 0 - 0 /100 WBC [facility] Specimen Blood Performing Organization Address [facility] [place] Ph one Number [address] [facility] * Prothrombin time/INR (05/23/2019 4:32 AM CDT) Only the most recent of 3 results within the time period is included. Protime 27.5 (H) 11.9 - 14.2 seconds [facility] INR 2.6 <=5.9 [facility] Specimen Blood Narrative Performed At Effective 07/06/2018: PT Reference Range Change [facility] New: 11.9-14.2Previous: 11.7-14.7 [facility] MEDICAL CE NTER RECOMMENDED COUMADIN/WARFARIN INR THERA PY RANGES STANDARD DOSE: 2.0-3.0Includes: PRO PHYLAXIS for venous thrombosis, systemic embolization; TREATMENT for venous thro mbosis and/or pulmonary embolus. HIGH RISK: Target INR is 2.5-3.5 for pa tients wiht mechanical heart valves. Performing Organization Address [facility] [place] [facility] Ph one Number [address], [place] [address] 0 [phone] [place] [address] * Phosphorus (05/23/2019 4:32 AM CDT) Only the most recent of 3 results within the time period is included. Phosphorus 2.1 (L) 2.3 - 4.7 mg/dL [facility] Specimen Blood Narrative Performed At Child Care Leader ID - ANA M Collado [facility] Performing Organization Address [facility] one [place] [address] [facility] * B-type Natriuretic Factor (BNP) (05/23/2019 4:32 AM CDT) BNP 362 (H) 0 - 100 pg/mL [facility] Specimen Blood Narrative Performed At Child Care Leader ID - ANA M Collado [facility] Performing Organization Address [facility] one [place] [address] 0 [phone] [place] [address] * Magnesium (05/23/2019 4:32 AM CDT) Only the most recent of 3 results within the time period is included. Magnesium 2.3 1.6 - 2.6 mg/dL [facility] Specimen Blood Narrative Performed At Child Care Leader ID - ANA M Collado [facility] Performing Organization Address [facility] one [place] [address] 0 [phone] [place] [address] * Comprehensive metabolic panel (05/23/2019 4:32 AM CDT) Only the most recent of 3 results within the time period is included. Protein, Total 5.9 (L) 6.0 - 8.3 gm/dL [facility] Albumin 2.7 (L) 3.5 - 5.0 g/dL [facility] Alkaline Phosphatase 125 40 - 150 U/L [facility] Total Bilirubin 2.4 (H) 0.2 - 1.2 mg/dL [facility] Sodium 137 136 - 145 meq/L [facility] Potassium 3.3 (L) 3.5 - 5.1 meq/L [facility] Chloride 106 98 - 107 meq/L [facility] CO2 21 (L) 22 - 29 meq/L [facility] BUN 27 (H) 7 - 21 mg/dL [facility] Creatinine 0.94 0.57 - 1.25 mg/dL [facility] Glucose 101 70 - 105 mg/dL [facility] Calcium 7.8 (L) 8.4 - 10.2 mg/dL [facility] AST 30 5 - 34 U/L [facility] ALT 15 6 - 55 U/L [facility] EGFR 60Comment: ESTIMATED GFR IS mL/min/1.73 sq m [facility] NOT ACCURATE CREATININE [facility] CLEARANCE IN PREDICTING GLOMERULAR FILTRATION RATE. ESTIMATED GFR IS NOT APPLICABLE FOR DIALYSIS PATIENTS. Specimen Blood Narrative Performed At Child Care Leader ID - ANA M W [facility] Specimen slightly icteric [facility] Performing Organization Address City/State/Zipcode Ph one Number [address] [address] [facility] * XR chest 1 view portable / bedside (2019 2:24 PM CDT) Specimen Narrative Performed At FINAL REPORT GE RIS TECHNIQUE: Frontal view of the chest. INDICATION: Fluid overload. COMPARISON: None. FINDINGS: LINES/TUBES: Right IJ intravenous dori ter with the tip over the right atrium. LUNGS: Increased interstitial markings of the lungs. Volume loss in the left medial lung base. PLEURA: No pneumothorax or significant pleural effusion. HEART AND MEDIASTINUM: The cardiomedias tinal silhouette is within normal limits. SOFT TISSUES AND BONES: Remodeling of t he right humeral head with severe degenerative changes. Osseous rubio dies in the right humeral joint. Likely moderate degenerative susie nges of the partially visualized left glenohumeral joint. Acute, mainly displaced fractures of th e left posterior ribs 3, 5, and 6 IMPRESSION: The increased interstitial markings of the lungs are concerning for interstitial pulmonary edema. Left basilar subsegmental atelectasis. Acute, minimally displaced fractures of the left posterior ribs 3, 4, and 6. No pleural effusion or pneumotho rax. Signed: Sabino Mack MD Report Verified Date/Time: 0 14:38:44 Reading Location: [address] Body Reading Room Procedure Note Interface, External Ris In - 2019 2:41 PM CDT FINAL REPORT TECHNIQUE: Frontal view of the chest. [...] 6. No pleural effusion or pneumothorax. Signed: Sabino Mack MD Report Verified Date/Time: 2019 14:38:44 Reading Location: [facility] [id number] CT Body Reading Room Performing Organization Address City/State/Zipcode Ph one Number GE RIS * CBC (Hemogram only) (2019 5:43 AM CDT) Only the most recent of 2 results within the time period is included. WBC 6.3 3.5 - 10.5 K/L [facility] RBC 2.34 (L) 3.93 - 5.22 M/L [facility] Hemoglobin 7.2 (L) 11.2 - 15.7 GM/DL [facility] Hematocrit 22.5 (L) 34.1 - 44.9 % [facility] MCV 96.2 (H) 79.4 - 94.8 fL [facility] MCH 30.8 25.6 - 32.2 pg [facility] MCHC 32.0 (L) 32.2 - 35.5 GM/DL [facility] RDW 16.8 (H) 11.7 - 14.4 % [facility] Platelets 79 (L) 150 - 450 K/CU MM [facility] MPV 11.8 9.4 - 12.3 fL [facility] nRBC 0 0 - 0 /100 WBC [facility] Specimen Blood Performing Organization Address City/[facility] Ph one Number [place] [address] [facility] * Vancomycin level, trough (05/21/2019 5:32 PM CDT) Vancomycin Tr 13.4 10.0 - 20.0 ug/mL [facility] Specimen Blood Narrative Performed At Child Care Leader ID - DB [facility] Performing Organization Address [facility] Ph one Number [place] [address] [facility] * Venous doppler arms bilateral (05/21/2019 4:11 PM CDT) [facility] ECHO HEARTLAB MKCKESSON CPACS Specimen Impressions Performed At Right Impression [facility] ECHO HEARTLAB 1. There is no deep venous obstruction in the jugular , distal subclavian, [facility] axillary, brachial, radial or ulnar vei ns. 2. The proximal subclavian vein could n ot be visualized due to a picc line. 3. There is no superficial venous obstr uction in the basilic vein. 4. The cephalic vein could not be visua lized. Left Impression 1. There is no deep venous obstruction in the jugular, subclavian, axillary, brachial, radial or ulnar veins. 2. The cephalic or basilic veins could not be visualized. Conclusions Summary Venous duplex imaging and compression o f the bilateral upper extremities was performed. The veins were technical ly difficult to visualize due to edema and patient body habitus. The zack ateral venous systems were patent and compressible with no evidence of th rombus where visualized. Signature Velocities are measured in cm/s ; Diame ters are measured in cm Narrative Performed At [facility] - Upper Extremities Veins [facility] ECHO HEARTLAB Demographics [facility] Patient NameDARLET LOPES Date of Study 05/21/2019 63 Visit [id number] male Date of 1955 Referring Trista Kruger sonRoom Number [id number] Physician Engine Installer Debbie Mcginnis RV T Physician Procedure Type of Study: Veins: Upper Extremities Veins, VENOUS DOPPLER ARMS, BILATERAL. Indications for Study:Concern for clots . Patient Status:Routine. Study Location:Portable. Technical Quality:Technically Difficult . Risk Factors History of Disease + +----+--------- + !Diagnosis!Date!Comments ! + +----+--------- + !History/Risk Factors:!!HTN , cirrhosis, former smoker, Hep C ! + +----+--------- + Procedure Note Interface, External Ris In - 2019 9:09 AM CDT [facility] - Upper Extremities Veins Demographics Patient Name ARLET ALVARENGA Date of Study 05/21/2019 Age 63 Visit Number [id number] Gender Female Accession Number [id number] Date of 1955 Referring Trista Xavier Room Number 942 Physician Engine Installer Elena Lopez, Interpreting Candy Sawyer T Physician Procedure Type of Study: Veins: Upper Extremities Veins, VENOUS DOPPLER ARMS, BILATERAL. Indications for Study:Concern for clots. Patient Status:Routine. Study Location:Portable. Technical Quality:Technically Difficult. Risk Factors History of Disease + +----+ + !Diagnosis !Date!Comments ! + +----+ + !History/Risk Factors: ! !HTN, cirrhosis, former smoker, Hep C ! + +----+ + Impressions Right Impression 1. There is no deep venous obstruction i n the jugular, distal subclavian, axillary, brachial, radial or ulnar veins. 2. The proximal subclavian vein could no t be visualized due to a picc line. 3. There is no superficial venous obstru ction in the basilic vein. 4. The cephalic vein could not be visual ized. Left Impression 1. There is no deep venous obstruction i n the jugular, subclavian, axillary, brachial, radial or ulnar veins. 2. The cephalic or basilic veins could n ot be visualized. Conclusions Summary Venous duplex imaging and compression of the bilateral upper extremities was performed. The veins were technically difficult to visualize due to edema and patient body habitus. The bilateral venous systems were patent and compressible with no evidence of thrombus where visualized. Signature Velocities are measured in cm/s ; Diameters are measured in cm Performing Organization Address [facility] one Number [facility] ECHO HEARTLAB [facility] CPACS * Mitochondrial Ab Titer (05/21/2019 3:12 PM CDT) Mitochondrial Ab Titer TNP <1:20 [facility] Comment: INCORPORATED Test Not Performed. Screening test Negative or Not Detected. Titer not performed. Specimen Blood Narrative Performed At Performing Lab [facility] [address] [facility] [address] [address] [place] [address] Piotr Rahman MD, PhD, MORENO Performing Organization Address [facility] one Number [facility] [address] [place] [address] * Mitochondrial Ab Screen (05/21/2019 3:12 PM CDT) Anti-Mitochond Abs NEGATIVE NEGATIVE [facility] Comment: INCORPORATED This test was developed and its analytical performance characteristics have been determined by [facility]. It has not been cleared or approved by FDA. This assay has been validated pursuant to the CLIA regulations and is used for clinical purposes. Specimen Blood Narrative Performed At Performing Lab [facility] [address] [address] [place] [address] Piotr Rahman MD, PhD, MORENO Performing Organization Address [facility] one Number [facility], [address] [place] [id number] * Hepatitis A antibody, IgG (05/21/2019 3:12 PM CDT) Hep A IgG Reactive (A) Nonreactive [facility] [facility] Specimen Blood Narrative Performed At Child Care Leader ID - DB [facility] Performing Organization Address [facility] one Number [place] [address] MEDICAL ELSA * Anti-Mitochondrial Ab, reflex to titer (05/21/2019 3:12 PM CDT) Scan Result [facility] Specimen Blood Performing Organization Address City/[facility]/Zipcode Ph one Number [facility] [place], [address] [email or web address] [address] * Iron, TIBC, % sat. (without ferritin) (05/21/2019 3:12 PM CDT) Iron 64.0 40.0 - 160.0 ug/dL [facility] TIBC 105 (L) 250 - 450 ug/dL [facility] Iron % Saturation 61 (H) 20 - 55 % [facility] Specimen Blood Narrative Performed At Child Care Leader ID - DB [facility] Performing Organization Address [facility] one [place] [address] [phone] [place] [address] * Actin (Smooth Muscle) Antibody, IgG (05/21/2019 3:12 PM CDT) Anti-Smooth Muscle Ab 27 (H) See Note: U [facility] Comment: [facility]POR[facility] Reference Range: <20 NEGATIVE > OR = 20 POSITIVE Antibodies recognizing actin are the main component of smooth muscle antibodies associated with autoimmune liver disease. Actin antibodies are found in approximately 75% of patients with autoimmune hepatitis (AIH) type 1, approximately 65% of patients with autoimmune cholangitis, approximately 30% of patients with primary biliary cirrhosis, and approximately 2% of healthy people. High values are closely correlated with AIH type 1. Specimen Blood Narrative Performed At Performing Lab [facility] [place] [facility] [address] [address] [place] [address] Piotr Rahman MD, PhD, [place] Performing Organization Address City/[facility] Ph one Number [facility] [address] [email or web address] [address] * Rdhxy-5-vvflnsgktsn (05/21/2019 3:12 PM CDT) A-1 Antitrypsin 155.20 90.00 - 200.00 mg/dL [facility] Specimen Blood Narrative Performed At Child Care Leader ID - DB [facility] Performing Organization Address [facility] [place] [facility] Ph one Number [address] [facility] * AJITH Titer & Pattern (05/21/2019 3:12 PM CDT) AJITH Titer 1:160 [facility] AJITH Pattern Speckled [facility] Specimen Blood Performing Organization Address [facility] Ph one Number [address] [facility] * Lactic acid, venous (05/21/2019 3:12 PM CDT) Only the most recent of 3 results within the time period is included. Lactate, Venous 2.08 0.50 - 2.20 mmol/L [facility] Specimen Blood Narrative Performed At Child Care Leader ID - DB [facility] Performing Organization Address [facility] [place] [facility] Ph one Number [address] [facility] * Ceruloplasmin (05/21/2019 3:12 PM CDT) Ceruloplasmin 23 18 - 53 mg/dL [facility] Comment: [facility] Adults:Males: 18-36 mg/dL Fe males: 18-53 mg/dL Pediatrics: Males (mg/dL)Females (mg/dL) ------ 0-30 Days 8-25 3-28 31 Days-11 Month 15-481 5-43 1-3 Years2 5 -54 4-6 Years2 -54 7-9 Years2 -48 10-12 Opkfk52-14 21-48 13-15 Phowc06-50 21-46 16-18 Nmjlf51-82 22-50 The pediatric ranges are derived from the following criteria: Maria Del Carmen SJ, Mark JM, Brenda Dumont et al Pediatric reference ranges for Vgng-3-Igvsehalqdbww and ceruloplasmin. Clin. Chem 1997; 43:S1999 Pediatric Reference Ranges, 2nd., SF Maria Del Carmen,et al. editors. [employer], [place], [place] 1997. Specimen Blood Narrative Performed At Performing Lab [facility] *[facility], [address] [place] [address] Tim Perea MD, PhD Performing Organization Address City/State/[facility] Ph one Number [facility], [address] [facility] [address] * Alpha fetoprotein (AFP), tumor marker (05/21/2019 3:12 PM CDT) Alpha-Fetoprotein <2.0 <10.0 ng/mL [facility] Specimen Blood Narrative Performed At Child Care Leader [facility] Performing Organization Address City/[facility] Ph one [address] [facility] * Hepatitis B core antibody, IgM (05/21/2019 3:12 PM CDT) Hep B C IgM Nonreactive Nonreactive [facility] Specimen Blood Narrative Performed At Child Care Leader ID [facility] Performing Organization Address [facility] Ph one [address] [facility] * Hepatitis B core antibody, total (05/21/2019 3:12 PM CDT) Hep B Core Total Ab Reactive (A) Nonreactive [facility] Specimen Blood Narrative Performed At Child Care Leader ID [facility] Performing Organization Address [facility] Ph one [address] [facility] * Hepatitis B surface antibody (05/21/2019 3:12 PM CDT) Hep B S Ab <8.0 <8.0 mIU/mL [facility] Specimen Blood Narrative Performed At Child Care Leader ID - DB [facility] Performing Organization Address City/[facility] Ph one Number [address] 0 [phone] [place] [address] * Hepatitis B surface antigen (05/21/2019 3:12 PM CDT) HBsAg Screen Nonreactive Nonreactive [facility] Specimen Blood Narrative Performed At Child Care Leader ID - DB [facility] Performing Organization Address City/[facility] Ph one [address] [facility] * Anti-Nuclear Antibody (AJITH) (05/21/2019 3:12 PM CDT) AJITH Positive (A) Negative [facility] Specimen Blood Narrative Performed At Test performed by IFA method. [facility] Performing Organization Address City/[facility] Ph one Number [address] [facility] * Immunoglobulin G (IgG) (05/21/2019 3:12 PM CDT) IgG 3,185 (H) 540-1,822 mg/dL [facility] Specimen Blood Narrative Performed At Child Care Leader ID - DB [facility] Performing Organization Address City/[facility] Ph one Number [address] 0 [phone] [place] [address] * Ferritin (05/21/2019 3:12 PM CDT) Ferritin 233.52 5.00 - 275.00 ng/mL [facility] Specimen Blood Narrative Performed At Child Care Leader ID - DB [facility] Performing Organization Address City/[facility]/Zipcode Ph one Number [address] 0 [phone] [place] [address] * Blood Culture Panel(BioFire) (05/21/2019 3:11 PM CDT) Only the most recent of 2 results within the time period is included. LISTERIA MONOCYTOGENES Not detected Not detected [facility] STAPHYLOCOCCUS Not detected Not detected [facility] STAPHYLOCOCCUS AUREUS Not detected Not detected [facility] Streptococcus Not detected Not detected [facility] STREPTOCOCCUS AGALACTIAE Not detected Not detected [facility] ([facility] STREPTOCOCCUS PNEUMONIAE Not detected Not detected [facility] Streptococcus pyogenes Not detected Not detected [facility] (Group A) [facility] ACINETOBACTER BAUMANNII Not detected Not detected [facility] HAEMOPHILUS INFLUENZAE Not detected Not detected [facility] NEISSERIA MENINGITIDIS Not detected Not detected [facility] ENTEROBACTERIACEAE [facility] ENTEROBACTER CLOACOE Not detected Not detected [facility] KLEBSIELLA OXYTOCA Not detected Not detected [facility] KLEBSIELLA PNEUMONIAE Not detected Not detected [facility] PROTEUS [facility] SERRATIA MARCESCENS Not detected Not detected [facility] ALEX ALBICANS Not detected Not detected [facility] ALEX GLABRATA Not detected Not detected [facility] ALEX KRUSEI Not detected Not detected [facility] ALEX PARAPSILOSIS Not detected Not detected [facility] ALEX TROPICALIS Not detected Not detected [facility] ESCHERICHIA COLI Not detected Not detected [facility] METHICILLIN-RESISTANCE [facility] VANCOMYCIN-RESISTANCE [facility] CARBAPENEM-RESISTANCE Comment: This is a corrected [facility] GENE result. Previous result was [facility] Not detected on 2019 at 1938 CDT ENTEROCOCCUS Not detected Not detected [facility] PSEUDOMONAS AERUGINOSA Not detected Not detected [facility] Specimen Blood Narrative Performed At Other bacteria and resistance markers not targeted by this PCR panel cannot be [facility] excluded; therefore clinical correlation and follow u p of serology, culture [facility] results, and other molecular studies is required. The results are not intended to be used as the sole means for clinic al diagnosis or patient management decisions. This sample was tested at [facility] Molecular Diagnostics Laboratory using the [employer] Blood Cultu re ID Panel. It is FDA cleared and has been verified and approved by the [facility] Molecular Diagnostics Laboratory for clinical use. This laboratory is CLIA-c ertified and [employer] (CAP)-accredited to [facility] m high complexity testing. Performing Organization Address [facility] one Number [place] [address] [address] [phone] [address] * Blood Culture - Routine (Right Venipuncture) (05/21/2019 3:11 PM CDT) Only the most recent of 3 results within the time period is included. Result From Aerobic Bottle Only [facility] Coagulase negative [facility] Staphylococcus (A) Gram Stain Result From aerobic bottle only: gram [facility] positive cocci in clusters [facility] Specimen Blood Performing Organization Address [facility] one Number [place] [address] 0 [phone] [place] [address] * IR CV Access Fluoro (05/21/2019 2:11 PM CDT) Specimen Narrative Performed At FINAL REPORT [facility] PROCEDURE: Non-tunneled central venous catheter placement Procedural Personnel Attending physician(s): Evan Perez MD Fellow physician(s): None Resident physician(s): None Advanced practice provider(s): None Pre-procedure diagnosis: Osteomyelitis, poor IV access Post-procedure diagnosis: Same Indication: Administration of intraveno us medications Additional clinical history: None Complications: No immediate complicatio ns. IMPRESSION: Insertion of right-sided non-tunneled t riple-lumen temporary central venous catheter, with tip in the expect ed location of the cavoatrial junction. Plan: The catheter may be used immediately. PROCEDURE SUMMARY: - Venous access with ultrasound guidanc e - Non-tunneled central venous catheter insertion with fluoroscopic guidance - Additional procedure(s): None PROCEDURE DETAILS: Pre-procedure Consent: Informed consent for the proce dure including risks, benefits and alternatives was obtained and time- out was performed prior to the procedure. Preparation (MIPS): The site was prepar ed and draped using all elements of maximal sterile barrier elvis hnique including sterile gloves, sterile gown, cap, mask, large sterile sheet, sterile ultrasound probe cover, hand hygiene an d cutaneous antisepsis with 2% chlorhexidine. Medical reason for site preparation exc eption (MIPS): Not applicable Anesthesia/sedation Level of anesthesia/sedation: No sedati on Anesthesia/sedation administered by: In dependent trained observer under attending supervision with contin uous monitoring of the patient\\X2019\\s level of consciousness and physiologic status Access Local anesthesia was administered. The vessel was sonographically evaluated and determined to be patent. Real time ultrasound was used to visualize needle entry into the vess el and a permanent image was stored. Vein accessed: Internal jugular vein Access technique: Micropuncture set wit h 21 gauge needle Catheter placement The access site was dilated and the cat heter was placed into the vein over a wireunder fluoroscopic marian nce.The catheter tip location was fluoroscopically verified and a per manent image was stored.. A sterile dressing was applied. Catheter placed: Bard triple lumen Catheter size (Swedish): 7 Catheter length (cm): 16 Catheter flush: Normal saline Catheter securement technique: Non-abso rbable suture Contrast Contrast agent: None Radiation Dose Fluoroscopy time (minutes): 0.1 Reference air kerma (mGy): 0.7 Additional Details Additional description of procedure: No ne Equipment details: None Specimens removed: None Estimated blood loss (mL): Less than 10 Standardized report: [id number] Attestation Signer name: Evan Perez I attest that I was present for the ent alan procedure. I reviewed the stored images and agree with the report as written. Signed: Evan Perez MD Report Verified Date/Time: 0 14:37:26 Reading Location: [facility] P048 Angio Bod y Reading Room Procedure Note Interface, External Ris In - 05/21/2019 2:39 PM CDT FINAL REPORT PROCEDURE: Non-tunneled central venous catheter placement Procedural Personnel Attending physician(s): Evan Perez MD Fellow physician(s): None Resident physician(s): None Advanced practice provider(s): None Pre-procedure diagnosis: Osteomyelitis, poor IV access Post-procedure diagnosis: Same Indication: Administration of intravenous medications Additional clinical history: None Complications: No immediate complications. IMPRESSION: Insertion of right-sided non-tunneled triple-lumen temporary central venous catheter, with tip in the expected location of the cavoatrial junction. Plan: The catheter may be used immediately. PROCEDURE SUMMARY: - Venous access with ultrasound guidance - Non-tunneled central venous catheter i nsertion with fluoroscopic guidance - Additional procedure(s): None PROCEDURE DETAILS: Pre-procedure Consent: Informed consent for the procedure including risks, benefits and alternatives was obtained and time-out was performed prior to the procedure. Preparation (MIPS): The site was prepared and draped using all elements of maximal sterile barrier technique including sterile gloves, sterile gown, cap, mask, large sterile sheet, sterile ultrasound probe cover, hand hygiene and cutaneous antisepsis with 2% chlorhexidine. Medical reason for site preparation exception (MIPS): Not applicable Anesthesia/sedation Level of anesthesia/sedation: No sedation Anesthesia/sedation administered by: Independent trained observer under attending supervision with continuous monitoring of the patient\\X2019\\s level of consciousness and physiologic status Access Local anesthesia was administered. The vessel was sonographically evaluated and determined to be patent. Real time ultrasound was used to visualize needle entry into the vessel and a permanent image was stored. Vein accessed: Internal jugular vein Access technique: Micropuncture set with 21 gauge needle Catheter placement The access site was dilated and the catheter was placed into the vein over a wire under fluoroscopic guidance. The catheter tip location was fluoroscopically verified and a permanent image was stored.. A sterile dressing was applied. Catheter placed: Bard triple lumen Catheter size (Swedish): 7 Catheter length (cm): 16 Catheter flush: Normal saline Catheter securement technique: Non-absorbable suture Contrast Contrast agent: None Radiation Dose Fluoroscopy time (minutes): 0.1 Reference air kerma (mGy): 0.7 Additional Details Additional description of procedure: None Equipment details: None Specimens removed: None Estimated blood loss (mL): Less than 10 Standardized report: [email or web address] Attestation Signer name: Evan Perez I attest that I was present for the entire procedure. I reviewed the stored images and agree with the report as written. Signed: Evan Perez MD Report Verified Date/Time: 05/21/2019 14:37:26 Reading Location: [place] [address] Angio Body Reading Room Performing Organization Address City/State/[facility] one Number GE [facility] * Rapid drug screen, urine (05/20/2019 4:48 PM CDT) Barbiturate Screen Negative Negative [facility] Benzodiazepine Screen Negative Negative [facility] Cocaine (Metab.) Screen Negative Negative [facility] Methadone Screen Negative Negative [facility] Opiate Screen Positive (A) Negative [facility] Cannabinoid Screen Negative Negative [facility] Amph/Methamph Screen Negative Negative [facility] Phencyclidine Screen Negative Negative [facility] pH, UA 6.0 5.0 - 8.0 [facility] Specimen Urine Narrative Performed At [facility] Cocaine 300 ng/mL [facility] Tgfrjcgnddk39 n g/mL Zkszleccabxjms283 ng/mL Barbiturate 200 ng/ mL Tbizybgnqrauv74 ng/ mL Opiate3 00 ng/mL Methadone 300 n g/mL Amphetamine/ 1000 ng/mL Methamphetamine This assay provides an unconfirmed qual itative test result for the clinical management of patients in emergency sit uations. Chain of custody not maintained. Some gwpr-pyh-fpvmuxu medications, as w ell as adulterants, may cause inaccurate results. Clinical correlation should be applied. A more comprehensive drug screen or confirmation of a detected dr sunita may be performed upon request. Child Care Leader ID - DB Performing Organization Address [facility] Ph one Number [place] [address] [address] [phone] [place] [address] * Sodium, random urine (05/20/2019 4:48 PM CDT) Sodium Urine 27 meq/L [facility] Specimen Urine Narrative Performed At Reference Range: No Normals [facility] Child Care Leader ID - DB [facility] Performing Organization Address [facility] Ph one Number [address] [facility] * Osmolality, urine (05/20/2019 4:48 PM CDT) Osmolality, Ur 535 40-1,400 mOsm/kg [facility] Specimen Urine Performing Organization Address [facility] Ph one Number [address] [facility] * Creatinine, random urine (05/20/2019 4:48 PM CDT) Creatinine, Ur 62.0 mg/dL [facility] Specimen Urine Narrative Performed At Reference Range: No Normals [facility] Child Care Leader ID - DB [facility] Performing Organization Address [facility] Ph one Number [address] [facility] * US abdominal with doppler (05/20/2019 3:25 PM CDT) Specimen Narrative Performed At FINAL REPORT [facility] [facility] Abdominal ultrasound dated 05/20/2019 Clinical information: r/o cirrhosis, li scott mass Comment:Real-time transabdominal ul trasound was performed. Liver is normal in size and measures 12 cm in length. The echogenicity of the liver is course wit h irregular margins consistent with cirrhosis.No focal lesion is n oted in the liver.Spleen is a large measuring 16 cm in length. Gallbladder is distended. Sludge is see n in the gallbladder without gallstone present. No biliary dilatatio n is seen. Common bile duct measures 3 mm in diameter.Main port al vein measures 5 mm in diameter. Pancreas is incompletely visualized. Right kidney measures 12.0 x 4.7 x 5.2 cm.Left kidney measures 11.0 x 4.2 x 4.0 cm.Echogenicity of both kidney is normal.No hydronephrosis or solid mass seen in ei ther kidney.No cystis seen in the either kidney. Moderate ascites present in the abdomen . Abdominal aorta is normal in caliber. T he IVC is patent. Real-time Color and Spectral doppler ul trasound of the abdomen was performed. Main portal vein measures 0.5 cm in alina meter. There is hepatopedal flow in the main portal vein with veloc ity 14 cm/sec.Right and left portal veins are patent. Proper hepatic artery, right hepatic ar pedro, and left hepatic artery are patent with resistive indices 0.8, 0.7, and 0.7 respectively. IVC, Hepatic venous confluence, right H V, middle HV and left HV are patent. Impression: 1. Cirrhosis with splenomegaly. 2. Patent hepatic artery and portal vei n. 3. Moderate ascites. 4. Gallbladder sludge. Signed: Brii Medina MD Report Verified Date/Time: 0 16:10:07 Reading Location: [facility] [id number] Consult Reading Room Procedure Note Interface, External Ris In - 05/20/2019 4:12 PM CDT FINAL REPORT Abdominal ultrasound dated 05/20/2019 Clinical information: [...] normal in caliber. The IVC is patent. Real-time Color and Spectral doppler ultrasound of the [...] HV are patent. Impression: 1. Cirrhosis with splenomegaly. 2. Patent hepatic artery and portal vein . 3. Moderate ascites. 4. Gallbladder sludge. Signed: Brii Medina MD Report Verified Date/Time: 05/20/2019 16:10:07 Reading Location: [facility] B1 [id number] Consult Reading Room Performing Organization Address City/State/Zipcode Ph one Number [facility] * Osmolality, serum (05/20/2019 10:51 AM CDT) Osmolality Serum 293 275 - 295 mOsm/kg [facility] Specimen Blood Performing Organization Address City/[facility]/Zipcode Ph one Number [address] [facility] * XR knee 1 or 2 views right (05/20/2019 9:35 AM CDT) Specimen Narrative Performed At FINAL REPORT [facility] RAD, KNEE, 1 OR 2 VIEWS, RIGHT INDICATION: AP and lateral, assess for loosening COMPARISON: None TECHNIQUE: Frontal and lateral views of the right knee IMPRESSION: Remote total knee arthroplasty in satis factory alignment. There is questionable medial lucency along the f emoral and tibial stems which may reflect asymmetric stress reaction and/or loosening. Signed: JR Davenport Robert MD Report Verified Date/Time: 0 10:05:43 Reading Location: [facility] C013 Neuro Re ading Room Procedure Note Interface, External Ris In - 05/20/2019 10:07 AM CDT FINAL REPORT RAD, KNEE, 1 OR 2 VIEWS, RIGHT INDICATION: AP and lateral, assess for loosening COMPARISON: None TECHNIQUE: Frontal and lateral views of the right knee IMPRESSION: Remote total knee arthroplasty in satisfactory alignment. There is questionable medial lucency along the femoral and tibial stems which may reflect asymmetric stress reaction and/or loosening. Signed: JR Davenport Robert MD Report Verified Date/Time: 05/20/2019 10:05:43 Reading Location: [facility] C013 Neuro Reading Room Performing Organization Address [place]/[facility] [place] RIS * Hepatitis C PCR, Quantitative (05/20/2019 6:56 AM CDT) HCV PCR, Quantitative HCV RNA not detected HCV RNA not detect ed [facility] Specimen Blood Narrative Performed At This test uses a Real-Time Polymerase Chain Reaction (RT-PCR) methodology and [facility] was performed using [employer] Ampliprep/C BENITA TaqMan HCV test kit version 2.0 [facility] ([employer] Reportable range for this assay is 15 - 100,000,000 IU per mL (1.18 - 8.00 Log IU/mL). Performing Organization Address [facility] [place] [address] [facility] * CT lower extremity without & with IV contrast right (05/20/2019 6:51 AM CDT) Specimen Narrative Performed At FINAL REPORT [employer] RIS CLINICAL HISTORY: Status post total kne e arthroplasty with swelling and concern for abscess COMPARISON: None. FINDINGS: Multiple axial images of the right lowe r extremity were performed from the mid femur to the ankle before and after the uncomplicated administration of IV contrast. Coronal and sagittal reformats were created. This exam was performed accord ing to our departmental dose-optimization program, which includ es automated exposure control, adjustment of the mA and/or kV accordin g to patient size and/or use of the iterative reconstruction techniq ue. Streak artifact from total knee arthrop lasty hardware somewhat limits evaluation. The patient has undergone previous tota l knee arthroplasty with long intramedullary stems and both the dista l femur and proximal tibia. The hardware appears appropriately posi tioned and aligned. There is no acute fracture or destructive bony l esion. There is a complex, multiloculated rim- enhancing fluid collection surrounding the distal femur and extend ing to the anterior margin of the distal femoral prosthesis. The maxi mum cross-sectional dimension is at the anterior half of the leg sirena cent to the prosthesis and measures 7.6 x 4.1 cm. There are smalle r posterior medial loculations. There is extensive subcutaneous edema i n the visualized lower extremity. No soft tissue gas is identified. The visualized vasculature is normal. IMPRESSION: Complex density, multiloculated abscess surrounding the femoral component of the total knee arthroplast y, as described. There is no acute fracture, malalignmen t or evidence of hardware loosening. Signed: Cameron Irving MD Report Verified Date/Time: 0 07:05:52 Procedure Note Interface, External Ris In - 05/20/2019 7:08 AM CDT FINAL REPORT CLINICAL HISTORY: Status post total knee [...] malalignment or evidence of hardware loosening. Signed: Cameron Irving MD Report Verified Date/Time: 05/20/2019 07:05:52 Performing Organization Address City/State/Zipcode Ph one Number GE RIS * Basic metabolic panel (Na, K+, Cl, CO2, Glu, Ca, BUN, Cr) (05/20/2019 6:03 AM CDT) Only the most recent of 3 results within the time period is included. Sodium 129 (L) 136 - 145 meq/L [facility] Potassium 5.1 3.5 - 5.1 meq/L [facility] Chloride 107 98 - 107 meq/L [facility] CO2 15 (L) 22 - 29 meq/L [facility] BUN 38 (H) 7 - 21 mg/dL [facility] Creatinine 0.79 0.57 - 1.25 mg/dL [facility] Glucose 58 (L) 70 - 105 mg/dL [facility] Calcium 7.3 (L) 8.4 - 10.2 mg/dL [facility] EGFR 73Comment: ESTIMATED GFR IS mL/min/1.73 sq m [facility] NOT ACCURATE CREATININE [facility] CLEARANCE IN PREDICTING GLOMERULAR FILTRATION RATE. ESTIMATED GFR IS NOT APPLICABLE FOR DIALYSIS PATIENTS. Specimen Blood Narrative Performed At Child Care Leader ID - PIAYA L [facility] Specimen slightly icteric [facility] Performing Organization Address [facility] [place] one [phone] [place] [address] * Type and screen, automated (05/20/2019 6:01 AM CDT) ABO/RH AUTOMATED (BEAKER) O NEGATIVE [facility] Ab Scrn NEGATIVE [facility] Specimen Blood Performing Organization Address [facility] one [address] [phone] [place] [address] * Hepatic function panel (05/20/2019 5:13 AM CDT) Protein, Total 6.1 6.0 - 8.3 gm/dL [facility] Albumin 1.5 (L) 3.5 - 5.0 g/dL [facility] Total Bilirubin 2.6 (H) 0.2 - 1.2 mg/dL [facility] Bilirubin, Direct 1.7 (H) 0.1 - 0.5 mg/dL [facility] Alkaline Phosphatase 163 (H) 40 - 150 U/L [facility] AST 35 (H) 5 - 34 U/L [facility] ALT 19 6 - 55 U/L [facility] Specimen Blood Narrative Performed At Child Care Leader ID - NAOMY M [facility] Specimen slightly icteric [facility] Performing Organization Address [facility]/Zipcode Ph one Number [facility] [address] [place], [place] [address] [facility] * Body fluid crystals (05/20/2019 4:31 AM CDT) Body Fluid Crystals Calcium pyrophosphate crystals [facility] for pseudogout [facility] Quantity seen Few [facility] Pathologist: Tana Galvez MD (electronic [facility] signature) [facility] Specimen Synovial Fluid Performing Organization Address City/[facility] Ph one Number [facility] [address] [place], [place] [address] [facility] * Body fluid cell count with differential (05/20/2019 4:31 AM CDT) Appearance Turbid (A) Clear [facility] Color Brown (A) Colorless, Straw [facility] RBCs 505,000 (H) <=1 /cu mm [facility] Adjusted WBC Count Comment: Unable to identify [facility] cell morphology. Cells appear [facility] degenerated Lining Cells Comment: Unable to identify [facility] cell morphology. Cells appear [facility] degenerated % Segs Comment: Unable to identify [facility] cell morphology. Cells appear [facility] degenerated % Lymphs Comment: Unable to identify [facility] cell morphology. Cells appear [facility] degenerated % Monos Comment: Unable to identify [facility] cell morphology. Cells appear [facility] degenerated % Eos Comment: Unable to identify [facility] cell morphology. Cells appear [facility] degenerated % Baso Comment: Unable to identify [facility] cell morphology. Cells appear [facility] degenerated Container Body Fluid EDTA Tube [facility] Specimen Body Fluid Performing Organization Address City/[facility]/Zipcode Ph one Number [facility] [address] [place], [place] [address] [facility] * Anaerobic culture (05/20/2019 4:30 AM CDT) Result No anaerobes isolated [facility] Specimen Synovial Fluid Performing Organization Address [place]/[facility] [place] Ph one Number [address] [address] [facility] * Body fluid culture (05/20/2019 4:30 AM CDT) Result 4+ Serratia marcescens (A) [facility] Gram Stain Result 4+ WBCs [facility] Gram Stain Result 4+ gram negative rods [facility] Specimen Body Fluid Antibiotic Method Susceptibility Organism Amikacin <=2: Susceptible Serratia marcescens Aztreonam <=1: Susceptible Serratia marcescens Cefepime <=1: Susceptible Serratia marcescens Cefoxitin 16: Resistant Serratia marcescens Ceftazidime <=1: Susceptible Serratia marcescens Ceftriaxone <=1: Susceptible Serratia marcescens Ertapenem <=0.5: Susceptible Serratia marcescens Gentamicin <=1: Susceptible Serratia marcescens Levofloxacin <=0.12: Susceptible Serratia marcescens Meropenem <=0.25: Susceptible Serratia marcescens Tetracycline 4: Susceptible Serratia marcescens Tobramycin 2: Susceptible Serratia marcescens Trimethoprim + Sulfamethoxazole >=320: Resistant Serratia marcescens Performing Organization Address [facility] [place] Ph one Number [address] [address] [facility] * C-Reactive Protein (05/20/2019 4:17 AM CDT) CRP 12.13 (H) 0.00 - 0.50 mg/dL [facility] Specimen Blood Narrative Performed At Child Care Leader YADY Abreu [facility] Performing Organization Address City/[facility] Ph one Number [address] [facility] after 06/24/2018 Insurance Payer Benefit Subscriber ID Type Phone Address Plan / Group HUMANA - MEDICARE MGD HUMANA xxxxxxxxx [facility] CARE MEDICARE Contracted [facility]V [facility] xxxxxxxxx INSTIT,SNF ,LTAC,REHA B [id number] Advance Directives For more information, please contact: [facility] [address] [place] [address] [phone] Date Inactivated Comments Code Status Date Activated 05/23/2019 4:25 PM Full Code 05/20/2019 5:20 AM This code status was determined by: Patient
--- NOTE | 2019-06-25 21:12 | Emergency Department Note ---
History of Present Illnes History of Present Illness Chief Complaint: General Medicine Complaints History of Present Illness This is a 64 year old female who is on hospice for cirrhosis presents with c/o constipation for past 4 days, unable to have a bowel movement, denies n/v . Historian: Patient, Barber/EMS Arrival Mode: HFD Onset (how long ago): day(s) (4) Location: abdomen Quality: constiaption Radiation: non-radiation Severity: mild Onset quality: gradual Duration (how long): day(s) (4) Progression: worsening Chronicity: recurrent Relieving factors: none Exacerbating factors: none Associated symptoms: denies other symptoms Treatments prior to arrival: none Past Medical/Family History Physician Review I have reviewed the patient's past medical and family history. Any updates have been documented here. Past Medical History Recent Fever: No Clinical Suspicion of Infectio: No New/Unexplained Change in Ment: No Past Medical History: Hypertension, Depression, GERD, Chronic Back Pain, Osteoarthritis Other Medical History: RA CIRRHOSIS METABOLIC ENCEPHALOPATHY RECTAL PROLAPSE COLITIS GASTROENTERITIS HEP C Other Surgery: UNKNOWN MULITPLE PARACENTESIS Social History Smoking Cessation: Former smoker Counseling Performed: No Alcohol Use: None Any Illegal Drug Use: No TB Exposure/Symptoms: No Physically hurt or threatened: No Other Last Tetanus: UNK Any Pre-Existing Lines (PICC,: No Is patient up to date on immun: Yes Last Flu: UP TO DATE Last Pneumovax: UP TO DATE Review of Systems Review of Systems Constitutional: no symptoms EENTM: no symptoms Cardiovascular: no symptoms Respiratory: no symptoms Gastrointestinal: as per HPI, constipation Genitourinary: no symptoms Musculoskeletal: no symptoms Neurological: no symptoms Psychological: no symptoms Endocrine: no symptoms Hematological/Lymphatic: no symptoms Review of other systems All other systems reviewed and negative. Physical Exam Related Data Allergies: Coded Allergies: No Known Allergies (Unverified , 10/11/18) Triage Vital Signs Vital Signs Date Time Temp Pulse Resp B/P (MAP) Pulse Ox O2 Delivery O2 Flow Rate FiO2 06/25/19 20:57 98.2 117 26 152/87 100 Vital signs reviewed: Yes Physical Exam CONSTITUTIONAL Constitutional: well-developed, well-nourished HENT HENT: normocephalic, atraumatic, oropharynx clear/moist, nose normal HENT L/R: left ext ear normal, right ext ear normal EYES Eyes: PERRL, conjunctivae normal NECK Neck: ROM normal PULMONARY Pulmonary: effort normal, breath sounds normal CARDIOVASCULAR Cardiovascular: regular rhythm, heart sounds normal, capillary refill normal, tachycardia (rate 110) GASTROINTESTINAL Abdominal: soft, nontender, bowel sounds normal GENITOURINARY Genitourinary: exam deferred SKIN Skin: warm, dry MUSCULOSKELETAL Musculoskeletal: ROM normal NEUROLOGICAL Neurological: alert, oriented x 3, no gross motor or sensory deficits PSYCHOLOGICAL Psychological: mood/affect normal, judgement normal Results Imaging Imaging Comments i viewed kub myself, no evidence of bowel obstruction, no acute abnormality Critical Care Time Subsequent provider I assumed direction of critical care for this patient from another provider of my specialty. Assessment & Plan Assessment & Plan Problems: (1) Fecal impaction Assessment & Plan kub ordered to eval for fecal impaction Reassessment Reassessment time: 21:30 Reassessment pt feels much better after being manually disimpacted in the er Last Vital Signs Date Time Temp Pulse Resp B/P (MAP) Pulse Ox O2 Delivery O2 Flow Rate FiO2 06/25/19 20:57 98.2 117 26 152/87 100 Home Meds Reported Medications Sulfamethoxazole/Trimethoprim (BACTRIM DS TABLET) 1 Each Tablet, 1 TAB PO DAILY, #60 TAB 02/22/19 Rifaximin (XIFAXAN) 200 Mg Tablet, 200 MG PO BID 02/22/19 [Folic Acid] No Conflict Check, 1 MG PO DAILY 02/22/19 Sertraline Hcl (ZOLOFT) 50 Mg Tablet, 50 MG PO DAILY, #30 TAB 02/22/19 Tramadol Hcl* (ULTRAM 50MG*) 50 Mg Tab, 50 MG PO PRN, TAB 02/22/19 Lactulose (LACTULOSE) 20 Gm/30 Ml Solution, 30 ML PO TID, EACH 02/22/19 Spironolactone (SPIRONOLACTONE) 25 Mg Tablet, 25 MG PO DAILY, #60 TAB 02/22/19 Furosemide (FUROSEMIDE) 40 Mg Tablet, 20 MG PO Daily, #30 TAB 02/22/19 MELISSA CHIN MD June 25, 2019 21:12
--- NOTE | 2019-06-25 21:39 | NUR ---
pt arrived c c/o constipation. md states to manually disimpact. pt manually disimpacted of large amount of elder like consistency stool. stool noted like brown colored. pt states that feels complete relief of discomfort p disimpaction.
[2019-06-25 22:35] VITALS: BP 152/87
--- NOTE | 2019-06-25 22:35 | Diagnostic Imaging Report ---
EXAM: Abdomen Radiograph 1 View(s) INDICATION: ^constipation ^Y COMPARISON: None FINDINGS: The bowel gas pattern is nonspecific. Prominent gas within the colon. No discrete formed stool. No abnormal abdominal soft tissue calcification. No free intraperitoneal air. No acute osseous abnormality. IMPRESSION: Nonspecific bowel gas pattern. No identifiable formed stool. Signed by: Harshil Petit MD on 06/25/2019 10:32 PM
== END 2019-06-25 22:47 | disposition home or self-care (01) ==
LOC: ER 20:50
DX: K56.41 Fecal impaction (principal); K74.60 Unspecified cirrhosis of liver; B19.20 Unspecified viral hepatitis C without hepatic coma; I10 Essential (primary) hypertension; K21.9 Gastro-esophageal reflux disease without esophagitis; F32.9 Major depressive disorder, single episode, unspecified
CPT/HCPCS: 74018; 99283